=== PATIENT | male | born 1965 | race Caucasian/White ===

== ENCOUNTER 2019-06-13 09:24 | Emergency (ER) | payer BC, OTHER ==
[~2019-06-13] VITALS: Ht 170.2 cm; Wt 83.6 kg
[~2019-06-13 09:24] MED LIST: ACET500T PO; CLOP75TA2 PO; GABA300C2 PO; HYDR-3716 PO; LIDO1DIS2 EXT; PRAV40TA PO; ROBA750T4 PO; SOMA350T PO; ULTR50TA PO; VICO5TAB PO; VITAD1000T PO; plavix PO; vicoden PO
--- NOTE | 2019-06-13 10:10 | REP ---
Two-view chest: 06/13/2019. Indication: Dyspnea. Comparison: 08/08/2013. Findings: The lungs are clear. There is no pleural effusion or pneumothorax. Cardiac silhouette is within normal limits. Impression: No acute cardiopulmonary process. Electronically Signed by Reza Diaz DO 06/13/2019 10:01 A
[2019-06-13 10:15] LABS: BASO # 0.1 10^3/uL (0.0-0.2); BASO % 0.5 % (0.0-1.0); EOS # 0.3 10^3/uL (0.0-0.5); HEMATOCRIT 45.5 % (42.0-52.0); HEMOGLOBIN 15.5 g/dl (13.5-17.5); LYMPH # 2.1 10^3/uL (1.5-5.0); LYMPH % 22.1 % (24.0-44.0); MEAN CORPUSCULAR HEMOGLOBIN 33.3 pg (27.0-33.0); MEAN CORPUSCULAR HGB CONC 34.1 g/dl (32.0-36.5); MEAN CORPUSCULAR VOLUME 97.6 fl (80.0-96.0); MONO # 0.7 10^3/uL (0.0-0.8); MONO % 7.8 % (0.0-5.0); NEUTROPHILS # 6.2 10^3/uL (1.5-8.5); PLATELET COUNT, AUTOMATED 223 10^3/uL (150-450); RED BLOOD COUNT 4.66 10^6/uL (4.30-6.10); WHITE BLOOD COUNT 9.4 10^3/uL (4.0-10.0)
[2019-06-13] MEDS ORDERED: IPRATROPIUM 0.5MG/ALBUTEROL 2.5MG INH SOL UD 3ML (DUONEB)(J7620) NEB ONE (10:30)
[2019-06-13 10:47] LABS: ALBUMIN 3.9 GM/DL (3.2-5.2); ALT/SGPT 39 U/L (12-78); BILIRUBIN,DIRECT 0.1 MG/DL (0.0-0.2); BILIRUBIN,TOTAL 0.4 MG/DL (0.2-1.0); BLOOD UREA NITROGEN 11 MG/DL (7-18); CALCIUM LEVEL 9.2 MG/DL (8.5-10.1); CARBON DIOXIDE LEVEL 28 MEQ/L (21-32); CHLORIDE LEVEL 102 MEQ/L (98-107); CK-MB VALUE MASS 1.3 NG/ML (<3.6); CPK CREATINE PHOSPHOKINASE 108 U/L (39-308); CREATININE FOR GFR 0.85 MG/DL (0.70-1.30); GLOMERULAR FILTRATION RATE > 60.0 (>56); GLUCOSE, FASTING 109 MG/DL (70-100); NT-PRO BNP 64 PG/ML (<125); POTASSIUM SERUM 4.2 MEQ/L (3.5-5.1); SODIUM LEVEL 135 MEQ/L (136-145); TOTAL PROTEIN 7.8 GM/DL (6.4-8.2); TROPONIN I < 0.02 NG/ML (< 0.10)
[2019-06-13] MEDS ORDERED: ISOVUE-370 76% 100ML VIAL (Q9967) As Ordered ONE (10:51)
--- NOTE | 2019-06-13 11:50 | REP ---
CT pulmonary angiogram: With IV contrast. History: Shortness of breath, rule out pulmonary embolus. Comparison studies: Comparison is made with today's chest x-ray. Contrast dose: 75 ML of Isovue [address] technique: Helical scanning is acquired and overlapping 1.5 mm and contiguous 3 mm axial images are reformatted. In addition, maximum intensity projection and multiplanar re-formation images are generated in sagittal and coronal imaging projections. CT pulmonary angiographic findings: There is good opacification of the pulmonary arterial tree. There is no filling defect or vessel cutoff. There is no CT evidence of pulmonary embolism. Thoracic aorta enhances homogeneously and is normal in course and caliber. No aneurysm or dissection is seen. There is no evidence of pleural or pericardial effusion. No hilar or mediastinal lymphadenopathy or mass lesion is observed. There is however a pleural-based somewhat spiculated soft tissue lesion in the left lung apex posteriorly and superiorly measuring 1.7 cm in greatest diameter by 0.8 by 1.7 cm. This has a somewhat suspicious morphology. There are also small biapical bullae. No other pulmonary parenchymal nodule is seen. No bony destructive lesion is seen. No adrenal abnormalities observed. There is an accessory splenule in the left upper quadrant. The visualized upper abdominal structures are otherwise unremarkable. Impression: No CT evidence of pulmonary embolus or acute aortic abnormality. There is a somewhat suspicious spiculated pleural-based 1.7 cm nodule in the left lung apex. Consider PET/CT. Electronically Signed by Jus Jacques MD 06/13/2019 06:45 P
[2019-06-13] MEDS ORDERED: PRED20TA PO (12:20)
[2019-06-13] MEDS ORDERED: PROAAER10 INH (12:20)
[2019-06-13 12:53] VITALS: BP 175/92
--- NOTE | 2019-06-13 21:27 | ECGEPIP ---
[facility] - ED Test Date: 2019-06-13 Pat Name: ANDRES MICHELLE Department: Room: - Gender: Male Outpatient Coordinator: : 1965 Requested By: OTILIA HOLLOWAY Order Number: [id number] Reading MD: Cali Serrano Measurements Intervals [place] Rate: 59 P: 14 [place]: 168 QRS: -5 QRSD: 81 T: 20 QT: 419 QTc: 417 Interpretive Statements SINUS BRADYCARDIA NONSPECIFIC T WAVE ABNORMALITIES NO PRIORS FOR COMPARISON Electronically Signed on 06-13-2019 21:27:18 EDT by Cali Serrano
--- NOTE | 2019-06-14 16:03 | ED PDOC ---
Post-Departure Follow-Up dr farrar faxed formal report of cta chest forfu Shirley Wright MD Jun 14, 2019 16:03
== END 2019-06-13 12:52 | disposition home or self-care (01) ==
LOC: M ED 09:24
DX: J44.1 Chronic obstructive pulmonary disease with (acute) exacerbation (principal); R91.1 Solitary pulmonary nodule; R00.1 Bradycardia, unspecified; F17.200 Nicotine dependence, unspecified, uncomplicated; Z88.0 Allergy status to penicillin; Z88.1 Allergy status to other antibiotic agents; Z88.5 Allergy status to narcotic agent; Z91.040 Latex allergy status
CPT/HCPCS: 71046; 71275; 80048; 80076; 82550; 82553; 83880; 84443; 84484; 85025; 85379; 93005; 94640; 99284; Q9967

== ENCOUNTER → 2019-07-12 | Outpatient (CLI) | payer BC ==
[~2019-07-12] MED LIST changes: +PRED20TA PO; +PROAAER10 INH
--- NOTE | 2019-07-12 17:55 | REP ---
PET/CT: History: Diagnosing left upper lobe nodule. Comparisons: Comparison CT study of the chest is from June 13, 2019. This showed a 1.7 cm nodule in the left lung apex. TECHNIQUE: 47 minutes following the intravenous injection of a 8.84 mCi dose of F-18 FDG, three-dimensional PET scintigraphy is acquired from the skull base to the proximal thighs. Triplanar noncontrast CT scanning is acquired through the same anatomic range for attenuation correction, and image registration with scan parameters optimized to minimize radiation exposure to the patient. PET scintigraphy and CT datasets were fused and displayed on a workstation with multiplanar and projection display capability. PET/CT Findings: The known spiculated left apical 17 mm nodule is not hypermetabolic. There is some uptake however maximum standard uptake value is 2.13, which is not in the hypermetabolic range. There is no other abnormal hypermetabolic uptake in the thorax. Head and neck soft tissues are unremarkable. In the abdomen and pelvis, there is normal hepatic, splenic, gastrointestinal, and genitourinary FDG accumulation. No abnormal abdominal or pelvic uptake is seen. Impression: Low level uptake in the left apical lung nodule, not within the hypermetabolic range. Follow-up is recommended. This does not completely exclude malignancy. Electronically Signed by Jus Jacques MD 07/13/2019 07:58 A
== END ==
LOC: M PLARAD 11:33
PROVIDERS: ATTEND Internal Medicine Pulmonary Disease
DX: R91.8 Other nonspecific abnormal finding of lung field (principal)
CPT/HCPCS: 78815; A9552

== ENCOUNTER → 2019-08-15 | Outpatient (CLI) | payer BC ==
--- NOTE | 2019-08-15 11:15 | REP ---
Bilateral lower extremity arterial Doppler ultrasound: History: Bilateral leg pain. Tobacco use. Findings: Ankle brachial indices are normal bilaterally, measured at 1.1 on the right and 1.0 on the left. Relatively normal triphasic waveforms are noted throughout the lower extremity arteries with the exception of the distal ORDER MAKE UP CLERK and distal AT A on the left which were monophasic. The distal ORDER MAKE UP CLERK on the right and the proximal AT A tracing on the right are monophasic as well. Mild plaquing is seen. No stenosis seen. Velocity chart right lower extremity arteries: CF A 129 cm/S Profunda 102 Proximal SFA 127 Mid SFA 104 Distal SFA 113 Popliteal 68 Proximal AT A 36 Tibioperoneal trunk 52 Proximal ORDER MAKE UP CLERK 43 Distal ORDER MAKE UP CLERK 61 Distal AT A 58 Velocity chart left lower extremity arteries: CF A 117 cm/S Profunda 99 Proximal SFA 97 Mid SFA 90 Distal SFA 96 Popliteal 65 Proximal AT A 34 Tibioperoneal trunk 50 Proximal ORDER MAKE UP CLERK 41 Distal ORDER MAKE UP CLERK 69 Distal AT A Electronically Signed by Jus Jacques MD 08/15/2019 11:07 A
== END ==
LOC: M RAD 06:54
PROVIDERS: ATTEND Physician Assistant
DX: I73.9 Peripheral vascular disease, unspecified (principal); F17.210 Nicotine dependence, cigarettes, uncomplicated

== ENCOUNTER → 2019-11-06 | Outpatient (CLI) | payer BC ==
--- NOTE | 2019-11-07 03:16 | REP ---
Clinical: COPD. Technique: Axial noncontrast images from the thoracic inlet to the upper abdomen with coronal and sagittal re-formations. Comparison: 06/13/2019. Findings: Mild stable COPD and bronchiectasis remains essentially unchanged including few scattered subpleural blebs primarily noted in the upper lung zones. By apical scarring is again noted along with stable spiculated subpleural nodule at the medial left lung apex which remains relatively unchanged. No further suspicious consolidation, nodule or mass lesion identified. No pleural effusion. No pneumothorax. No obvious adenopathy. The mediastinum demonstrates relatively normal thoracic aorta, pulmonary vasculature and heart/pericardium. Musculoskeletal structures are intact. Impression: 1. Relatively stable spiculated density along the medial left lung apex may represent chronic scarring. Active disease cannot definitively be excluded and 3-6 month follow-up examination may be warranted. 2. Mild stable chronic changes. Electronically Signed by Luis Berry MD 11/07/2019 03:07 A
== END ==
LOC: M RAD 15:19
PROVIDERS: ATTEND Internal Medicine Pulmonary Disease
DX: J44.9 Chronic obstructive pulmonary disease, unspecified (principal)

== ENCOUNTER → 2020-07-15 | Outpatient (CLI) | payer BC ==
[~2020-07-15] MED LIST changes: +ANOR1AER INH
--- NOTE | 2020-07-15 09:28 | REP ---
INDICATION: SOLITARY PULMONARY NODULE COMPARISON: 11/06/2019, 06/13/2019 TECHNIQUE: Axial noncontrast images from the thoracic inlet to the upper abdomen with coronal and sagittal reformations. This CT examination was performed using the following dose reduction techniques: Automated exposure control, adjustment of mA and/or kv according to the patient's size, and use of iterative reconstruction technique. FINDINGS: The left apical nodule with spiculated margins has increased in size to approximately 20 mm (image 11) Remainder of lung barney demonstrate mild chronic stable emphysematous changes without further consolidation, suspicious nodule or mass. Tracheobronchial tree is patent. No effusion. No pneumothorax. No obvious significant adenopathy. Mild atherosclerotic changes to the thoracic aorta and coronary arteries suggested without aortic aneurysm or cardiomegaly. No pericardial effusion. Limited upper abdomen demonstrates normal bilateral adrenal glands. Surrounding musculoskeletal structures are intact and without acute osseous abnormality. IMPRESSION: 1. Spiculated lesion in the left apex increased in size to 20 mm and suspicious for neoplasm. No obvious associated adenopathy or effusion. Biopsy may be warranted. <Electronically signed by Luis Brery > 07/15/20 0929
== END ==
LOC: M RAD 08:19
PROVIDERS: ATTEND Internal Medicine Pulmonary Disease
DX: R91.1 Solitary pulmonary nodule (principal)

== ENCOUNTER → 2020-07-30 | Outpatient (CLI) | payer BC ==
[2020-07-30 14:13] LABS: BASO # 0.1 10^3/uL (0.0-0.2); BASO % 0.8 % (0.0-1.0); EOS # 0.3 10^3/uL (0.0-0.5); EOS % 4.3 % (0.0-3.0); HEMATOCRIT 48.9 % (42.0-52.0); HEMOGLOBIN 16.3 g/dl (13.5-17.5); LYMPH # 1.9 10^3/uL (1.5-5.0); LYMPH % 29.8 % (24.0-44.0); MEAN CORPUSCULAR HEMOGLOBIN 32.7 pg (27.0-33.0); MEAN CORPUSCULAR HGB CONC 33.3 g/dl (32.0-36.5); MEAN CORPUSCULAR VOLUME 98.2 fl (80.0-96.0); MONO # 0.5 10^3/uL (0.0-0.8); MONO % 7.7 % (0.0-5.0); NEUTROPHILS # 3.7 10^3/uL (1.5-8.5); NEUTROPHILS % 57.1 % (36.0-66.0); PLATELET COUNT, AUTOMATED 212 10^3/uL (150-450); RED BLOOD COUNT 4.98 10^6/uL (4.30-6.10); WHITE BLOOD COUNT 6.5 10^3/uL (4.0-10.0)
[2020-07-30 14:24] LABS: ALT/SGPT 24 U/L (12-78); BILIRUBIN,TOTAL 0.7 MG/DL (0.2-1.0); BLOOD UREA NITROGEN 8 MG/DL (7-18); CALCIUM LEVEL 9.3 MG/DL (8.5-10.1); CARBON DIOXIDE LEVEL 28 MEQ/L (21-32); CHLORIDE LEVEL 103 MEQ/L (98-107); CHOLESTEROL LEVEL 270 MG/DL (<200); CHOLESTEROL RISK RATIO 6.279 (<5); CREATININE FOR GFR 0.99 MG/DL (0.70-1.30); GLOMERULAR FILTRATION RATE > 60.0 (>56); GLUCOSE, FASTING 91 MG/DL (70-100); HDL CHOLESTEROL 43 MG/DL (>40); LDL CHOLESTEROL 187 MG/DL (<100); NON-HDL-C 227 MG/DL; POTASSIUM SERUM 4.4 MEQ/L (3.5-5.1); SODIUM LEVEL 135 MEQ/L (136-145); TOTAL PROTEIN 8.1 GM/DL (6.4-8.2); TRIGLYCERIDES LEVEL 198 MG/DL (<150)
[2020-07-30 14:34] LABS: HEMOGLOBIN A1c 5.3 %
== END ==
LOC: M PLALAB 10:59
PROVIDERS: ATTEND Internal Medicine Pulmonary Disease
DX: R91.1 Solitary pulmonary nodule (principal)

== ENCOUNTER → 2020-08-14 | Outpatient (CLI) | payer BC ==
[~2020-08-14] MED LIST changes: +ALBU8.5H INH
== END ==
LOC: M LABSMTC 09:33
PROVIDERS: ATTEND Anesthesiology
DX: Z01.812 Encounter for preprocedural laboratory examination (principal); Z20.828 Contact with and (suspected) exposure to other viral communicable diseases

== ENCOUNTER 2020-08-19 07:56 | Day surgery (SDC) | payer BC ==
[~2020-08-19] VITALS: Ht 170.2 cm; Wt 81.6 kg
[~2020-08-19 07:56] MED LIST changes: +ALBUTEROL SULFATE 2.5 MG/0.5 ML INH NEB SOLN INH ONE; +LIDOCAINE 1% MDV 20ML VIAL SQ PRN; +LIDOCAINE 4% INJ 5ML AMP INH ONE; +LR 1,000 ML IV ONE
--- NOTE | 2020-08-19 08:31 | ECGEPIP ---
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
[2020-08-19] MEDS ORDERED: ROCURONIUM BROMIDE 50 MG/5 ML VIAL As Ordered ONE (08:44)
[2020-08-19] MEDS ORDERED: dexameTHASONE 4 MG/ML 1ML VIAL (J1100 PER 1MG) As Ordered ONE (08:44)
[2020-08-19] MEDS ORDERED: fentaNYL 100 MCG/2 ML INJECTION (J3010) As Ordered ONE ×2 (08:44→09:52)
[2020-08-19] MEDS ORDERED: ONDANSETRON 4MG/2ML VIAL As Ordered ONE (08:44)
[2020-08-19] MEDS ORDERED: LIDOCAINE 2% 100MG/5ML SDV (FOR ANES.) As Ordered ONE (08:44)
[2020-08-19] MEDS ORDERED: propofoL 200 MG/20 ML VIAL As Ordered ONE (08:44)
[2020-08-19] MEDS ORDERED: MIDAZOLAM INJ 2MG/2ML VIAL (J2250 PER 1MG) As Ordered ONE (08:44)
[2020-08-19] MEDS ORDERED: LIDOCAINE 4% INJ 5ML AMP INH ONE (09:00)
[2020-08-19] MEDS ORDERED: CETACAINE SPRAY 5GM As Ordered ONE (09:07)
[2020-08-19] MEDS ORDERED: LIDOCAINE 1% SDV 30ML VIAL As Ordered ONE (09:07)
[2020-08-19] MEDS ORDERED: EPINEPHrine 1MG/10ML SYRINGE 1.5IN As Ordered ONE (09:07)
[2020-08-19] MEDS ORDERED: THROMBIN SOLN 5,000 UNITS VIAL As Ordered ONE (09:07)
[2020-08-19] MEDS ORDERED: SUGAMMADEX SODIUM 500 MG/5 ML VIAL (BRIDION) As Ordered ONE (09:59)
--- NOTE | 2020-08-19 10:46 | ROOR ---
Patient Name: Evens Pelletier Procedure Date: 08/19/2020 9:06 AM Date of : 1965 Admit Type: Outpatient Age: 55 Room: Main OR Note Status: Finalized Attending MD: Lucía Connors MD Procedure: Bronchoscopy Indications: Left upper lobe nodule Providers: Lucía Connors MD (Doctor), Onur Adames DO, [facility] (1st Assisting Doctor) Referring MD: 1. No Referring Physician 1. No Referring Physician, Admin. (Referring MD) Requesting Physician: Medicines: Lidocaine 4% via nebulizer with Albuterol 2.5 mg, General Anesthesia, Cetacaine topical Complications: No immediate complications. Estimated blood loss: Minimal Procedure: Pre-Anesthesia Assessment: - Prior to the procedure, a History and Physical was performed, and patient medications and allergies were reviewed. The patient's tolerance of previous anesthesia was also reviewed. The risks and benefits of the procedure and the sedation options and risks were discussed with the patient. All questions were answered, and informed consent was obtained. Prior Anticoagulants: The patient has taken no previous anticoagulant or antiplatelet agents. ASA Grade Assessment: II - A patient with mild systemic disease. After reviewing the risks and benefits, the patient was deemed in satisfactory condition to undergo the procedure. - Patient identification and proposed procedure were verified prior to the procedure by the physician, the nurse, the anesthesiologist, the senior mechanical project engineer and the clean room technician. The procedure was verified in the procedure room. The Bronchoscope was introduced through the mouth, via the endotracheal tube (the patient was intubated for the procedure) and advanced to the tracheobronchial tree of both lungs. The procedure was accomplished without difficulty. The patient tolerated the procedure well. Findings: The endotracheal tube is in good position. The visualized portion of the trachea is of normal caliber. The martin is sharp. The tracheobronchial tree was examined to at least the first subsegmental level. Bronchial mucosa are normal; there are no endobronchial lesions, some mucosal pitting and webbing and scant mucoid secretions noted throughout. In the left there was anatomic variant. The lingular segmental branch came off the left lower lobe secondary bronchus. [employer]romagnetic navigation bronchoscopy was performed. The CT scan was used for planning purposes. A virtual bronchoscopic image was generated using the planning software. The target in the apical-posterior segment of the left upper lobe was marked. A nodule 2 cm in size was found and a pathway was created. After a complete airway exam, the navigation phase was then begun to locate the target lesion(s). Positioning centrally and partially off-center (in relation to the lesion) was confirmed using the Olympus radial probe US catheter. Fluoroscopy guided transbronchial brushings of a nodule were obtained in the apical-posterior segment of the left upper lobe with a cytology brush and sent for routine cytology. Transbronchial brushing technique was selected because the sampling site was not accessible using standard endoscopic (bronchoscopic) techniques. Transbronchial biopsies of a nodule were performed in the apical-posterior segment of the left upper lobe using forceps and sent for histopathology examination. The procedure was guided by fluoroscopy. Transbronchial biopsy technique was selected because the sampling site was not visible endoscopically. Bronchoalveolar lavage was performed in the JOSE EDUARDO apical posterior segments (B1 & B2) of the lung and sent for routine cytology and bacterial, AFB and fungal analysis. The return was blood-tinged. There were no mucoid plugs in the return fluid. Fiducial marker placement was performed. Once the target lesion was identified, two markers were deployed around the lesion 4 mm apart in the apical-posterior segment of the left upper lobe. Impression: - Left upper lobe nodule - The airway examination was normal. - Electromagnetic navigation bronchoscopy was performed. - Transbronchial brushings were obtained. - Transbronchial lung biopsies were performed. - Bronchoalveolar lavage was performed. - Fiducial markers were deployed. Recommendation: - Await test results. Procedure Code(s): --- Professional --- 88669, Bronchoscopy, rigid or flexible, including fluoroscopic guidance, when performed; with placement of fiducial markers, single or multiple 40824, Bronchoscopy, rigid or flexible, including fluoroscopic guidance, when performed; with transbronchial lung biopsy(s), single lobe 41832, Bronchoscopy, rigid or flexible, including fluoroscopic guidance, when performed; with bronchial alveolar lavage 27625, Bronchoscopy, rigid or flexible, including fluoroscopic guidance, when performed; with brushing or protected brushings 01854, Bronchoscopy, rigid or flexible, including fluoroscopic guidance, when performed; with computer-assisted, image-guided navigation (List separately in addition to code for primary procedure[s]) 36169, Bronchoscopy, rigid or flexible, including fluoroscopic guidance, when performed; with transendoscopic endobronchial ultrasound (EBUS) during bronchoscopic diagnostic or therapeutic intervention(s) for peripheral lesion(s) (List separately in addition to code for primary procedure[s]) CPT copyright 2019 [employer]. All rights reserved. The codes documented in this report are preliminary and upon environmental services aide review may be revised to meet current compliance requirements. Attending Participation: I personally performed the entire procedure. Lucía Connors MD 08/19/2020 10:46:30 AM Onur Adames DO, [facility] Number of Addenda: 0 Note Initiated On: 08/19/2020 9:06 AM
[2020-08-19] MEDS ORDERED: MEPERIDINE INJ 25 MG/ML VIAL (J2175) IV PRN (11:00)
[2020-08-19] MEDS ORDERED: ONDANSETRON 4MG/2ML VIAL IV PRN (11:00)
[2020-08-19] MEDS ORDERED: LR 1,000 ML IV SCH (11:00)
[2020-08-19] MEDS ORDERED: METOCLOPRAMIDE INJ 10MG/2ML VIAL (J2765 PER 1) IV PRN (11:00)
[2020-08-19] MEDS ORDERED: PERCOCET 5MG/325MG TAB PO PRN (11:00)
[2020-08-19] MEDS ORDERED: fentaNYL 100 MCG/2 ML INJECTION (J3010) IV PRN (11:00)
--- NOTE | 2020-08-19 11:03 | REP ---
INDICATION: R/O PNEUMO. COMPARISON: 06/13/2019. TECHNIQUE: SINGLE PORTABLE AP VIEW OF THE CHEST WAS PERFORMED. FINDINGS: Two metallic clips overlie the left apex at the site of a recently identified spiculated nodule. No pneumothorax is seen. Both lungs are otherwise clear with no infiltrate or evidence of pleural effusion. The heart mediastinum are unremarkable. IMPRESSION: NO ACUTE PULMONARY DISEASE.No pneumothorax. <Electronically signed by Long Cortes > 08/19/20 105
[2020-08-19 11:39] VITALS: BP 130/68
== END 2020-08-19 12:20 | disposition home or self-care (01) ==
LOC: M SDC 07:56
PROVIDERS: ATTEND Internal Medicine Pulmonary Disease
DX: J13 Pneumonia due to Streptococcus pneumoniae (principal); J44.9 Chronic obstructive pulmonary disease, unspecified; F17.218 Nicotine dependence, cigarettes, with other nicotine-induced disorders; E78.49 Other hyperlipidemia; I73.9 Peripheral vascular disease, unspecified; K21.9 Gastro-esophageal reflux disease without esophagitis; F41.9 Anxiety disorder, unspecified; Z91.040 Latex allergy status; Z88.0 Allergy status to penicillin; Z88.1 Allergy status to other antibiotic agents; Z79.51 Long term (current) use of inhaled steroids
CPT/HCPCS: 31623; 31624; 31626; 31627; 31628; 31654; 71045; 76000; 87070; 87077; 87102; 87116; 87186; 87205; 87206; 88104; 88108; 88305; 88313; 93005; C1887; J1100; J2250; J2405; J3010; S2900

== ENCOUNTER → 2020-11-18 | Outpatient (CLI) | payer BC ==
[~2020-11-18] MED LIST changes: -ALBUTEROL SULFATE 2.5 MG/0.5 ML INH NEB SOLN INH ONE; -LIDOCAINE 1% MDV 20ML VIAL SQ PRN; -LIDOCAINE 4% INJ 5ML AMP INH ONE; -LR 1,000 ML IV ONE
--- NOTE | 2020-11-18 13:45 | REP ---
INDICATION: DIAGNOSING SOLITARY PULMONARY NODULE. Negative bronchoscopic biopsy 08/19/2020. COMPARISON: Comparison PET-CT study July 12, 2019.. Comparison chest CT study July 15, 2020. TECHNIQUE: Fifty-three minutes following the intravenous injection of a 14.13 mCi dose of F-18 FDG, three-dimensional PET scintigraphy is acquired from the skull base to the proximal thighs. Triplanar noncontrast CT scanning is acquired through the same anatomic range for attenuation correction, and image registration with scan parameters optimized to minimize radiation exposure to the patient. PET scintigraphy and CT datasets were fused and displayed on a workstation with multiplanar and projection display capability. FINDINGS: Head and neck soft tissues remain unremarkable. The left apical pleural based nodule has enlarged somewhat since the prior PET-CT study from July 12, 2019. It has become mildly hypermetabolic. Maximum standard uptake value in this nodule today is 4.62. Previously, maximum standard uptake value is 2.13. The nodule measures 2 cm in greatest diameter and is unchanged from the most recent CT study of July 15, 2021. Metallic fiducial markers are seen along the lateral and inferior margin of the nodule. No other abnormal hypermetabolic uptake is seen in the chest. No abnormal hypermetabolic uptake is seen in the abdomen or pelvis. PET scintigraphy is otherwise unremarkable. IMPRESSION: The spiculated nodule in the left lung apex has enlarged somewhat and become mildly hypermetabolic in the interval since the prior PET-CT study of 12 July 2019. Malignancy not excluded. <Electronically signed by Jonah Jacques > 11/18/20 [id number]
== END ==
LOC: M PLARAD 07:27
PROVIDERS: ATTEND Internal Medicine Pulmonary Disease
DX: R91.1 Solitary pulmonary nodule (principal)
CPT/HCPCS: 78815; A9552

== ENCOUNTER → 2020-12-31 | Outpatient (CLI) | payer BC ==
--- NOTE | 2020-12-31 14:04 | REP ---
INDICATION: SOLITARY PULMONARY NODULE, COPD. COMPARISON: Comparison is made with prior CT studies the most remote of which is from June 13, 2019 and the most recent 14 July 2020. Comparison is made with PET-CT findings from 18 November 2020.. TECHNIQUE: Helical scanning is acquired. 3 mm axial images are generated. Coronal and sagittal MPR and coronal MIP images are generated. FINDINGS: Digital preliminary auto body worker radiograph demonstrates 2 metallic fiducial markers in the left lung apex. Axial CT images demonstrate that these fiducial markers are along the inferior aspect of the pleural based left apical spiculated soft tissue nodule. Current dimensions of this nodular density are 2.4 x 1.9 by 2.4 cm. This is increased gradually since the June 13, 2019 study and appears larger from the most recent prior study of July 15, 2020. There are biapical bullous changes and again noted. There is a granulomatous calcification in the left upper lobe on page 50 of 118 series 201 of today's study. No other pulmonary nodule is appreciated. There is a tiny focus of subpleural fibrosis in the left lower lobe which is unchanged from the 2019 study. This is seen on page 71. No bony destructive lesion is seen. There is an accessory splenule again noted in the left upper quadrant. Normal adrenal glands are observed. No supraclavicular or axillary mass or adenopathy is observed. IMPRESSION: The previously noted left apical spiculated nodule has enlarged in the interval since the prior study of July 15, 2020. Current dimensions 2.4 x 2.4 x 1.9 cm. This corresponds to the area of hypermetabolic uptake on recent PET-CT. <Electronically signed by Jonah Jacques > 12/31/20 1400
== END ==
LOC: M RAD 07:26
PROVIDERS: ATTEND Thoracic Surgery (Cardiothoracic Vascular Surgery)
DX: R91.1 Solitary pulmonary nodule (principal); J44.9 Chronic obstructive pulmonary disease, unspecified

== ENCOUNTER → 2021-01-23 | Outpatient (CLI) | payer BC | LOC: M LABSMTC 12:16 | PROVIDERS: ATTEND Anesthesiology | DX: Z01.812 Encounter for preprocedural laboratory examination (principal); Z20.822 Contact with and (suspected) exposure to COVID-19 ==

== ENCOUNTER → 2021-01-28 | Outpatient (CLI) | payer BC ==
[~2021-01-28] MED LIST changes: +ASPI-164 PO; +ATOR1TAB19 PO; +ATOR80TA59 PO; +BUPR15TASR PO; +BUPR75TA5 PO; +MUPIROCIN 2% OINT 22 GM TUBE TOP ONE; +VANCOMYCIN HCL 1,000 MG, VIAL MATE ADAPTER 1 EACH in NS 250 ML IV ONE
[2021-01-28 14:00] LABS: HEMATOCRIT 44.2 % (42.0-52.0); MEAN CORPUSCULAR HEMOGLOBIN 32.3 pg (27.0-33.0); MEAN CORPUSCULAR HGB CONC 33.9 g/dl (32.0-36.5); MEAN CORPUSCULAR VOLUME 95.3 fl (80.0-96.0); PLATELET COUNT, AUTOMATED 207 10^3/uL (150-450); RED BLOOD COUNT 4.64 10^6/uL (4.30-6.10); WHITE BLOOD COUNT 7.1 10^3/uL (4.0-10.0)
[2021-01-28 14:15] LABS: ABG BASE EXCESS 1.3 (-2.0-2.0); ABG HCO3 23.3 MEQ/L (22.0-26.0); ABG O2 SATURATION 98.4 % (95.0-99.0); ABG PARTIAL PRESSURE CO2 30.1 mmHg (35.0-45.0); ABG PARTIAL PRESSURE O2 110.5 mmHg (75.0-100.0); ABG STANDARD HCO3 25.6 MEQ/L (22.0-26.0); ABG TOTAL CO2 24.2 MEQ/L (22.0-29.0); ABG pH (ARTERIAL) 7.507 UNITS (7.350-7.450)
[2021-01-28 14:17] LABS: INR 0.88; PROTHROMBIN TIME 12.1 SECONDS (12.5-14.3)
[2021-01-28 14:18] LABS: PARTIAL THROMBOPLASTIN TIME 29.7 SECONDS (24.2-38.5)
[2021-01-28 14:32] LABS: APPEARANCE, URINE CLEAR (CLEAR); BACTERIA, URINE AUTO NEGATIVE (NEGATIVE); BILIRUBIN, URINE AUTO NEGATIVE (NEGATIVE); BLOOD, URINE BLOOD 1+ (NEGATIVE); COLOR, URINE YELLOW (YELLOW); GLUCOSE, URINE (UA) AUTO NEGATIVE (NEGATIVE); KETONE, URINE AUTO NEGATIVE (NEGATIVE); LEUKOCYTE ESTERASE, URINE AUTO NEGATIVE (NEGATIVE); NITRITE, URINE AUTO NEGATIVE (NEGATIVE); PROTEIN, URINE AUTO NEGATIVE (NEGATIVE); RBC, URINE AUTO 2 /HPF (0-3); SQUAMOUS EPITHELIAL CELL UR AU 0 /HPF (0-6); UROBILINOGEN, URINE AUTO 0.2 mg/dL (0.0-2.0); WBC, URINE AUTO 1 /HPF (0-3)
[2021-01-28 14:38] LABS: BLOOD UREA NITROGEN 11 MG/DL (7-18); CALCIUM LEVEL 9.8 MG/DL (8.5-10.1); CARBON DIOXIDE LEVEL 27 MEQ/L (21-32); CHLORIDE LEVEL 102 MEQ/L (98-107); CREATININE FOR GFR 0.76 MG/DL (0.70-1.30); GLOMERULAR FILTRATION RATE > 60.0 (>56); GLUCOSE, FASTING 92 MG/DL (70-100); POTASSIUM SERUM 4.2 MEQ/L (3.5-5.1); SODIUM LEVEL 135 MEQ/L (136-145)
--- NOTE | 2021-01-28 14:44 | REP ---
INDICATION: LEFT UPPER LOBE ABNORMALITY COMPARISON: 08/19/2020 TECHNIQUE: PA and lateral. FINDINGS: The mediastinum and cardiac silhouette are normal. The lung barney are clear and without acute consolidation, effusion, or pneumothorax. The skeletal structures are intact and normal. Medial left apical lesion in the region of the visible clips is not identifiable by x-ray. IMPRESSION: No acute cardiopulmonary process. <Electronically signed by Luis Berry > 01/28/21 [id number]
--- NOTE | 2021-01-31 23:41 | ECGEPIP ---
[facility] Test Date: 2021-01-28 Pat Name: ANDRES MICHELLE Department: Room: - Gender: Male Collection Correspondent: carlee : 1965 Requested By: Cisco Gamez Order Number: [id number] Reading MD: Brendon Love Measurements Intervals [place] Rate: 60 P: 6 [place]: 162 QRS: -4 QRSD: 80 T: 16 QT: 400 QTc: 400 Interpretive Statements Normal sinus rhythm Compared to prior tracings (2) in the system, No remarkable changes Electronically Signed on 01-31-2021 23:41:13 EDT by Brendon Love
== END ==
LOC: M ADMPAT 12:56
PROVIDERS: ATTEND Thoracic Surgery (Cardiothoracic Vascular Surgery)
DX: Z01.818 Encounter for other preprocedural examination (principal)

== ENCOUNTER → 2021-01-29 | Outpatient (CLI) | payer BC ==
[~2021-01-29] MED LIST changes: -ASPI-164 PO; -ATOR80TA59 PO; -BUPR15TASR PO; -MUPIROCIN 2% OINT 22 GM TUBE TOP ONE; -VANCOMYCIN HCL 1,000 MG, VIAL MATE ADAPTER 1 EACH in NS 250 ML IV ONE
== END ==
LOC: M LABSMTC 09:33
PROVIDERS: ATTEND Anesthesiology
DX: Z01.812 Encounter for preprocedural laboratory examination (principal)

== ENCOUNTER 2021-01-31 06:58 | Inpatient (IN) | payer BC ==
[~2021-01-31] VITALS: Ht 172.7 cm; Wt 83.1 kg
[2021-01-31] VITALS (8 sets, daily range): BP systolic 89–118; BP diastolic 53–73
[2021-01-31] MEDS ORDERED: LR 1,000 ML IV ONE (07:05)
[2021-01-31] MEDS ORDERED: ONDANSETRON 4MG/2ML VIAL As Ordered ONE (07:16)
[2021-01-31] MEDS ORDERED: propofoL 200 MG/20 ML VIAL As Ordered ONE (07:16)
[2021-01-31] MEDS ORDERED: LIDOCAINE 2% 100MG/5ML SDV (FOR ANES.) As Ordered ONE (07:16)
[2021-01-31] MEDS ORDERED: ROCURONIUM BROMIDE 50 MG/5 ML VIAL As Ordered ONE ×4 (07:16→12:32)
[2021-01-31] MEDS ORDERED: dexameTHASONE 4 MG/ML 1ML VIAL (J1100 PER 1MG) As Ordered ONE (07:16)
[2021-01-31] MEDS ORDERED: fentaNYL 100 MCG/2 ML INJECTION (J3010) As Ordered ONE ×3 (07:16→14:32)
[2021-01-31] MEDS ORDERED: MIDAZOLAM INJ 2MG/2ML VIAL (J2250 PER 1MG) As Ordered ONE (07:16)
[2021-01-31] MEDS ORDERED: ACETAMINOPHEN 1000MG 100ML IV BTL (OFIRMEV) (J0131 PER 10MG) As Ordered ONE (07:16)
[2021-01-31] MEDS ORDERED: BUPIVACAINE HCL 0.5% 10ML VIAL As Ordered ONE (07:23)
[2021-01-31] MEDS ORDERED: CETACAINE SPRAY 5GM As Ordered ONE (07:23)
[2021-01-31] MEDS ORDERED: MUPIROCIN 2% OINT 22 GM TUBE As Ordered ONE (07:23)
[2021-01-31] MEDS ORDERED: BUPIVACAINE LIPOSOME/PF 1.3% 20ML VIAL (13.3MG/ML)(EXPAREL)(C9290 PER1MG) As Ordered ONE (07:24)
[2021-01-31] MEDS ORDERED: VANCOMYCIN 1000MG/20ML VIAL As Ordered ONE (07:29)
[2021-01-31] MEDS ORDERED: MUPIROCIN 2% OINT 22 GM TUBE TOP ONE (07:35)
[2021-01-31] MEDS ORDERED: VANCOMYCIN HCL 1,000 MG, VIAL MATE ADAPTER 1 EACH in NS 250 ML IV ONE (07:35)
[2021-01-31] MEDS ORDERED: LIDOCAINE 1% MDV 20ML VIAL XX ONE (08:00)
[2021-01-31] MEDS: MIDAZOLAM INJ 2MG/2ML VIAL (J2250 PER 1MG) IV PRN ×2 (08:11→08:15)
[2021-01-31] MEDS: fentaNYL 100 MCG/2 ML INJECTION (J3010) IV PRN ×6 (08:11→14:57)
[2021-01-31] MEDS ORDERED: BUPIVACAINE HCL 0.5% 30 ML VIAL As Ordered ONE (09:05)
[2021-01-31] MEDS ORDERED: EPIDURAL/PCA KEYS XX PRN (10:00)
[2021-01-31] MEDS ORDERED: FENTANYL/BUPIVACAINE/NACL BAG 250 ML EPIDURAL SCH (10:00)
[2021-01-31] MEDS ORDERED: ONDANSETRON 4MG/2ML VIAL IV PRN ×3 (10:00→14:40)
[2021-01-31] MEDS ORDERED: WALLBOXKEY XX PRN (10:00)
[2021-01-31] MEDS ORDERED: METOCLOPRAMIDE INJ 10MG/2ML VIAL (J2765 PER 1) IV PRN ×2 (10:00→14:40)
[2021-01-31] MEDS ORDERED: NALOXONE INJ 0.4MG/1ML VIAL (J2310 PER 1MG) IV PRN (10:00)
[2021-01-31] MEDS ORDERED: SUGAMMADEX SODIUM 500 MG/5 ML VIAL (BRIDION) As Ordered ONE (13:20)
[2021-01-31] MEDS ORDERED: PERCOCET 5MG/325MG TAB PO PRN ×3 (14:00→14:40)
[2021-01-31] MEDS ORDERED: LEVALBUTEROL 1.25 MG/0.5 ML CONCENTRATE NEB NEB PRN (14:00)
[2021-01-31] MEDS ORDERED: BISACODYL 10 MG SUPP PR PRN (14:00)
[2021-01-31 14:31] LABS: ABG BASE EXCESS -0.9 (-2.0-2.0); ABG O2 SATURATION 99.1 % (95.0-99.0); ABG PARTIAL PRESSURE CO2 40.5 mmHg (35.0-45.0); ABG PARTIAL PRESSURE O2 169.1 mmHg (75.0-100.0); ABG STANDARD HCO3 23.8 MEQ/L (22.0-26.0); ABG TOTAL CO2 25.2 MEQ/L (22.0-29.0)
[2021-01-31] MEDS ORDERED: KETOROLAC 30 MG/ML 1ML VIAL As Ordered ONE (14:38)
--- NOTE | 2021-01-31 14:38 | REP ---
INDICATION: s/p lobectomy JOSE EDUARDO COMPARISON: 01/28/2021 TECHNIQUE: Portable AP view of the chest FINDINGS: Two left-sided chest tubes extend to the apex with small left pneumothorax. The mediastinum and cardiac silhouette are stable. The right hemithorax is clear. IMPRESSION: Postsurgical changes to the left hemithorax with small left pneumothorax. <Electronically signed by Luis Berry > 01/31/21 [id number]
[2021-01-31] MEDS ORDERED: KETOROLAC 30 MG/ML 1ML VIAL IV PRN (14:40)
[2021-01-31] MEDS ORDERED: LR 1,000 ML IV SCH (14:40)
[2021-01-31 14:41] LABS: BASO % 0.2 % (0.0-1.0); EOS % 0.2 % (0.0-3.0); HEMATOCRIT 40.5 % (42.0-52.0); HEMOGLOBIN 13.8 g/dl (13.5-17.5); LYMPH # 0.5 10^3/uL (1.5-5.0); LYMPH % 4.5 % (24.0-44.0); MEAN CORPUSCULAR HEMOGLOBIN 33.3 pg (27.0-33.0); MEAN CORPUSCULAR HGB CONC 34.1 g/dl (32.0-36.5); MEAN CORPUSCULAR VOLUME 97.6 fl (80.0-96.0); MONO # 0.4 10^3/uL (0.0-0.8); MONO % 3.4 % (2.0-8.0); NEUTROPHILS # 10.3 10^3/uL (1.5-8.5); NEUTROPHILS % 91.2 % (36.0-66.0); PLATELET COUNT, AUTOMATED 183 10^3/uL (150-450); RED BLOOD COUNT 4.15 10^6/uL (4.30-6.10); WHITE BLOOD COUNT 11.3 10^3/uL (4.0-10.0)
[2021-01-31] MEDS ORDERED: ATOR80TA59 PO (14:45)
[2021-01-31] MEDS ORDERED: BUPR15TASR PO (14:45)
[2021-01-31] MEDS: KETOROLAC 30 MG/ML 1ML VIAL IV SCH ×2 (14:47→20:49)
[2021-01-31] MEDS ORDERED: ASPI-164 PO (14:57)
[2021-01-31 15:08] LABS: BLOOD UREA NITROGEN 11 MG/DL (7-18); CALCIUM LEVEL 8.9 MG/DL (8.5-10.1); CARBON DIOXIDE LEVEL 24 MEQ/L (21-32); CHLORIDE LEVEL 103 MEQ/L (98-107); CREATININE FOR GFR 0.96 MG/DL (0.70-1.30); GLOMERULAR FILTRATION RATE > 60.0 (>56); GLUCOSE, FASTING 145 MG/DL (70-100); POTASSIUM SERUM 4.8 MEQ/L (3.5-5.1); SODIUM LEVEL 136 MEQ/L (136-145)
[2021-01-31] MEDS: KCL 20MEQ IN D5/NS 1000ML 1,000 ML IV SCH (15:11)
--- NOTE | 2021-01-31 16:36 | RO ---
OPERATIVE NOTE DATE OF OPERATION: 01/31/2021 PREOPERATIVE DIAGNOSIS: Left upper lobe lesion. 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 PROCEDURES: 1. Left upper lobectomy after excision of an upper lobe tumor from the chest wall and the cupula. 2. Mediastinal lymphadenectomy. 3. Five-level rib block. 4. Bronchoscopy. 5. Pericardial flap patch. SURGEON: Dr. Cisco Tenorio FINDINGS: The tumor was not only adherent but looked to be invasive into the chest wall. This was at the cupula posteriorly. I did carve out the tumor, but I did not undertake a more extensive chest wall resection, as it was near the cupula, and I was very concerned that we were going to involve the brachial plexus. Therefore, the area was marked for later radiation therapy. There was a pinpoint staple air leak in the bronchus, which was oversewn and then reinforced with a pericardial flap and Tisseel. He did have complete fissures, but there was an intense inflammatory response all along the vessels, which made dissection difficult. DESCRIPTION OF PROCEDURE: Under satisfactory general anesthesia and single-lumen tube endotracheal intubation, the bronchoscope was passed into the tracheobronchial tree. There were no endobronchial lesions seen. There were a number of thick mucous secretions, which were suction aspirated. He had normal branching tracheobronchial anatomy. Patient was then intubated with a double-lumen tube confirmed under bronchoscopy and turned into the right lateral decubitus position. Patient was then prepped and draped in the usual sterile fashion, and a thoracoscopy incision was made in the mid axillary line into the approximate subintercostal space. Scope was inserted under inflation. Lung fell away from the chest wall. Inspection of the cupula where the tumor was noted showed the tumor not only to be adherent but into the chest wall. It was clear that I was not going to be able to remove this thoracoscopically. Therefore, a posterolateral thoracotomy incision was made with division of the latissimus dorsi with a slip of the serratus anterior. The placement of the intercostal rib incision was ascertained by she of a thoracoscope. The chest was then entered. The incision had to be extended both posteriorly and anteriorly in order to gain adequate access. It was noted that his tissues were quite dense and noncompliant. The adhesive portion of the tumor was exposed, and it was then excised by use of electrocautery. Care was taken to stay away from the subclavian vessel, which was approximately 5 mm from the tumor. The tumor was deep into the chest wall, and I was very concerned that as I got higher into the chest I was going to involve the brachial plexus if I continued the resection. I am very sure that there is some residual tumor left at the cupula. The wedge was then accomplished by use of [place] and ANNALEE stapler and sent to pathology, which confirmed that this was adenocarcinoma. Preparations were then made for an upper lobectomy. The major fissure was complete, and the intralobar pulmonary artery was located. It was surrounded with rather sticky adhesive tissue. The interlobar pulmonary artery posteriorly was also dissected up toward the apex. The posterior fissure was completed by use of a ANNALEE stapler after securing a tunnel between the posterior and anterior fissures. Dissection then proceeded from inferior to superior. There were five vessels which were encountered. The major was the apical segment, which was quite large. Each vessel was divided by use of a vascular stapler. As noted above, the dissections were rather difficult, in that there was a lot of adhesive tissue. Nonetheless, the arterial dissections were accomplished. Before dividing the large apical branch, however, the pulmonary vein was divided in two parts with the same vascular stapler. This then gave me a clear view of the apical vessel, which was then again stapled. This then left the bronchus. Bronchus turned out to be very broad based. It was eventually divided by use of an [place] 4.8 stapler. The inferior pulmonary ligament was released. The phrenic nerve was assiduously identified and preserved. The remainder of the mediastinal nodes which were not dissected with the arterial dissection were then removed and sent for pathology for separate examination. These looked to be soft and anthracotic. Upon testing the bronchus there was a small pinhole leak in the bronchus in one of the mj. This was oversewn with 4-0 Prolene suture and then reinforced by creating a pericardial flap by incising the pericardium posteriorly to the phrenic nerve and anchoring that to the bronchus with 4-0 Prolene suture. The bronchus was then tested again and was found to be intact. The bronchus as well as the arterial and venous staple lines were covered with Tisseel glue. A 5-level rib block consisting of Marcaine and Exparel was then instilled. Two chest tube were placed, a #24 anterior and posterior. The ribs were then reapproximated by use of a #1 Prolene pericostal [id number] sutures, and the extrathoracic muscles were closed with running 0 Vicryl suture, the subcutaneous tissue closed with running 3-0 Vicryl suture, and the skin closed with running 3-0 Monopril subcuticular suture. Patient tolerated the procedure well and left the operating room in satisfactory condition to the recovery room.
[2021-01-31] MEDS: LEVALBUTEROL 1.25 MG/0.5 ML CONCENTRATE NEB NEB SCH (19:33)
[2021-01-31] MEDS: HEPARIN SOD (PORCINE) 5000UNITS/ML 1ML VIAL/SYRINGE SC SCH (20:49)
[2021-01-31] MEDS: buPROPion **SR TABLET** (ZYBAN) 150MG PO SCH (20:49)
[2021-01-31] MEDS: ACETAMINOPHEN TAB 650MG DOSE (2X325MG) PO PRN (20:49)
[2021-01-31] MEDS: DOCUSATE SODIUM 100MG CAPSULE PO SCH (20:49)
[2021-01-31] MEDS: diphenhydrAMINE 50MG/ML VIAL (J1200) IV PRN (23:57)
[2021-02-01] VITALS (18 sets, daily range): BP systolic 80–144; BP diastolic 48–75
[2021-02-01] MEDS: KETOROLAC 30 MG/ML 1ML VIAL IV SCH ×4 (02:03→20:28)
[2021-02-01] MEDS: LEVALBUTEROL 1.25 MG/0.5 ML CONCENTRATE NEB NEB SCH ×4 (02:04→19:56)
[2021-02-01] MEDS: KCL 20MEQ IN D5/NS 1000ML 1,000 ML IV SCH (03:29)
[2021-02-01 06:00] LABS: ABG BASE EXCESS -4.1 (-2.0-2.0); ABG HCO3 20.1 MEQ/L (22.0-26.0); ABG PARTIAL PRESSURE CO2 34.1 mmHg (35.0-45.0); ABG PARTIAL PRESSURE O2 108.7 mmHg (75.0-100.0); ABG STANDARD HCO3 21.1 MEQ/L (22.0-26.0); ABG TOTAL CO2 21.2 MEQ/L (22.0-29.0); ABG pH (ARTERIAL) 7.389 UNITS (7.350-7.450)
[2021-02-01 06:07] LABS: BASO % 0.1 % (0.0-1.0); EOS % 0.1 % (0.0-3.0); LYMPH % 9.7 % (24.0-44.0); MEAN CORPUSCULAR HEMOGLOBIN 32.9 pg (27.0-33.0); MEAN CORPUSCULAR HGB CONC 33.1 g/dl (32.0-36.5); MEAN CORPUSCULAR VOLUME 99.2 fl (80.0-96.0); MONO % 9.4 % (2.0-8.0); NEUTROPHILS # 8.5 10^3/uL (1.5-8.5); NEUTROPHILS % 80.3 % (36.0-66.0); PLATELET COUNT, AUTOMATED 161 10^3/uL (150-450); RED BLOOD COUNT 3.53 10^6/uL (4.30-6.10); WHITE BLOOD COUNT 10.6 10^3/uL (4.0-10.0)
[2021-02-01 06:09] LABS: HEMOGLOBIN 11.6 g/dl (13.5-17.5)
[2021-02-01 06:39] LABS: BLOOD UREA NITROGEN 14 MG/DL (7-18); CALCIUM LEVEL 7.3 MG/DL (8.5-10.1); CARBON DIOXIDE LEVEL 23 MEQ/L (21-32); CHLORIDE LEVEL 109 MEQ/L (98-107); CREATININE FOR GFR 0.73 MG/DL (0.70-1.30); GLOMERULAR FILTRATION RATE > 60.0 (>56); GLUCOSE, FASTING 116 MG/DL (70-100); SODIUM LEVEL 137 MEQ/L (136-145)
--- NOTE | 2021-02-01 07:58 | REP ---
INDICATION: s/p lobectomy JOSE EDUARDO COMPARISON: 01/31/2021 TECHNIQUE: PA and lateral. FINDINGS: Two left-sided chest tubes extent to the apex. Postsurgical changes involving the left hemithorax including small left pneumothorax again noted. Aerated lung barney are relatively clear. Mediastinum and cardiac silhouette stable. Skeletal structures intact. IMPRESSION: Postsurgical changes involving the left hemithorax with small left pneumothorax. No new acute process appreciated. <Electronically signed by Luis Berry > 02/01/21 0757
[2021-02-01] MEDS: MOM 30ML SUSPENSION UDC PO SCH (09:00)
[2021-02-01] MEDS: HEPARIN SOD (PORCINE) 5000UNITS/ML 1ML VIAL/SYRINGE SC SCH ×2 (09:01→20:27)
[2021-02-01] MEDS: buPROPion **SR TABLET** (ZYBAN) 150MG PO SCH ×2 (09:02→20:27)
[2021-02-01] MEDS: PANTOPRAZOLE 40MG TAB (PROTONIX) PO SCH (09:02)
[2021-02-01] MEDS: DOCUSATE SODIUM 100MG CAPSULE PO SCH ×2 (09:02→20:27)
[2021-02-01] MEDS: ATORVASTATIN 20 MG TAB PO SCH (09:02)
[2021-02-01] MEDS: FENTANYL/BUPIVACAINE BAG 250 ML EPIDURAL SCH (09:53)
[2021-02-01] MEDS ORDERED: ONDANSETRON 4MG/2ML VIAL IV PRN (10:00)
[2021-02-01] MEDS ORDERED: diphenhydrAMINE 50MG/ML VIAL (J1200) IV PRN (10:00)
[2021-02-01] MEDS ORDERED: NALOXONE INJ 0.4MG/1ML VIAL (J2310 PER 1MG) IV PRN (10:00)
[2021-02-01] MEDS ORDERED: WALLBOXKEY XX PRN (10:00)
[2021-02-01] MEDS ORDERED: EPIDURAL/PCA KEYS XX PRN (10:00)
[2021-02-01] MEDS ORDERED: METOCLOPRAMIDE INJ 10MG/2ML VIAL (J2765 PER 1) IV PRN (10:00)
[2021-02-01] MEDS: diphenhydrAMINE 50MG/ML VIAL (J1200) IV PRN ×2 (11:22→17:23)
--- NOTE | 2021-02-01 11:33 | IPN ---
PROGRESS NOTE DATE: 02/01/2021 This is now the first postoperative day for Mr. Pelletier. He has had an uneventful first night of surgery. He does have increased pain at the incision site, and anesthesia has increased his epidural. His vital signs show a maximum temperature of 98.9 with a heart rate that ranges between 76-89 in a sinus rhythm, respiratory rate of 16-18 without the use of accessory muscles, who is 96%-98% saturated now on room air and whose blood pressure is ranging between 124/69 to 97/48. His intake and output for the past 24 hours has been recorded as 2463 in and 535 out, for a positivity of 1928 mL. He has put out 120 mL from the chest tube, and there is no air leak on water seal. Weight today is 82.9 kg compared to 82.3 kg yesterday. PHYSICAL EXAMINATION: His lungs show equal breath sounds on either side. There is some coarse rhonchi on the left side. Percussions notes are full to the diaphragm. Cardiac exam is without murmurs, clicks, gallops, or rubs. I cannot feel his point of maximal impulse (PMI). S1 and S2 are normal. Abdomen is soft and nontender. Bowel sounds are positive. There is no hepatomegaly. No costovertebral angle (CVA) tenderness. He is slightly tympanitic and distended, but he is having flatus. Extremities show no pretibial edema, no calf tenderness, no differential swelling of the upper extremities. Skin is warm, dry, and perfused without cyanosis or mottling, including that of the nailbeds and knees. Neck is supple. There is no jugular venous distention. No subcutaneous emphysema. Trachea is midline. Mouth shows the mucous membranes to be pink and moist. Lips and commissures without lesions. No thrush. Eyes show her pupils to be equal and reactive. Extraocular motion intact. Sclerae anicteric. Neurologic shows II-XII intact. Normal gross motor, gross sensation intact. Gait is not tested. Psychiatric shows him to be awake, alert, and oriented times three with appropriate mood and affect and conversational. His white count today is 10.6 with a hemoglobin and hematocrit of 11.6 and 35.0, down from 13.8 and 40.5 yesterday secondary to hemodilution. Platelet count is 161, and differential shows 80% neutrophils, 9% lymphocytes, 9% monocytes. There are no immature forms or toxic granulations. His electrolytes are essentially negative with a BUN and creatinine of 14 and 0.73, a glucose of 116, and a calcium of 7.3. Blood gases today show pH of 7.38, a pCO2 of 34, with a pO2 of 108 and a base excess of -4.1. His chest x-ray today shows his lung fully expanded to the chest wall. Chest tubes are in good place. Costophrenic angles are sharp. There is no subcutaneous emphysema. The area of the cupula that I had marked with clips is clearly seen. IMPRESSION: 1. Adenocarcinoma, at least stage II into the chest wall in the cupula. Final pathology pending. 2. Chronic obstructive pulmonary disease (COPD). 3. Hypercholesterolemia. 4. History of alcohol abuse. 5. History of tobacco abuse. PLAN AND DISCUSSION: I will discontinue the arterial line today and transfer him the progressive care unit (PCU). He is already off suction, and his lung is fully expanded to the chest wall. There is no evidence of air leak, and there is no subcutaneous emphysema on the x-ray. I am still quite worried about the pinpoint staple air leak in the bronchus, but so far so good. I have explained to the patient the findings of the operation, including invasion into the chest wall, and that there may be some residual tumor left behind, as I did not want to injure his brachial plexus at the base of the neck and thoracic outlet. He understands that that implies radiation. Final pathology is still pending regarding his delbert status.
[2021-02-01] MEDS ORDERED: NS 500 ML IV ONE (21:45)
[2021-02-01] MEDS: PHENYLEPHRINE HCL INJ 50 MG in D5W 495 ML IV SCH (23:35)
[2021-02-01 23:43] LABS: HEMATOCRIT 37.6 % (42.0-52.0); HEMOGLOBIN 12.3 g/dl (13.5-17.5); MEAN CORPUSCULAR HGB CONC 32.7 g/dl (32.0-36.5); MEAN CORPUSCULAR VOLUME 100.8 fl (80.0-96.0); PLATELET COUNT, AUTOMATED 155 10^3/uL (150-450); RED BLOOD COUNT 3.73 10^6/uL (4.30-6.10); WHITE BLOOD COUNT 10.8 10^3/uL (4.0-10.0)
--- NOTE | 2021-02-01 23:55 | REPVR ---
PROCEDURE INFORMATION: Exam: XR Chest Exam date and time: 02/01/2021 11:43 PM Age: 55 years old Clinical indication: Other: Hyptension; Additional info: Hypotension TECHNIQUE: Imaging protocol: XR of the chest. Views: 1 view. COMPARISON: CR PORTABLE CHEST X-RAY 01/31/2021 2:17 PM FINDINGS: Tubes, catheters and devices: Two chest tubes are seen in the left hemithorax. Lungs: Unremarkable. No consolidation. Postsurgical changes in the left hemithorax. Small left pneumothorax decreased from prior study. Pleural spaces: Unremarkable. No pleural effusion. No pneumothorax. Heart/Mediastinum: Mediastinal surgical clips. Bones/joints: Unremarkable. IMPRESSION: No significant change from prior study. Small left pneumothorax decreased from prior study. Electronically signed by: Matt Alcocer On 02/01/2021 23:55:25 PM
[2021-02-02] VITALS (44 sets, daily range): BP systolic 88–115; BP diastolic 51–75
[2021-02-02 00:11] LABS: BLOOD UREA NITROGEN 25 MG/DL (7-18); CALCIUM LEVEL 8.1 MG/DL (8.5-10.1); CARBON DIOXIDE LEVEL 23 MEQ/L (21-32); CHLORIDE LEVEL 103 MEQ/L (98-107); CREATININE FOR GFR 1.26 MG/DL (0.70-1.30); GLOMERULAR FILTRATION RATE > 60.0 (>56); GLUCOSE, FASTING 196 MG/DL (70-100); MAGNESIUM LEVEL 2.4 MG/DL (1.8-2.4); POTASSIUM SERUM 4.1 MEQ/L (3.5-5.1); SODIUM LEVEL 132 MEQ/L (136-145)
[2021-02-02] MEDS: LEVALBUTEROL 1.25 MG/0.5 ML CONCENTRATE NEB NEB SCH ×4 (01:22→19:24)
[2021-02-02 04:31] LABS: BASO # 0.1 10^3/uL (0.0-0.2); BASO % 0.4 % (0.0-1.0); EOS # 0.1 10^3/uL (0.0-0.5); EOS % 0.6 % (0.0-3.0); HEMATOCRIT 40.6 % (42.0-52.0); HEMOGLOBIN 13.4 g/dl (13.5-17.5); LYMPH # 2.5 10^3/uL (1.5-5.0); LYMPH % 16.2 % (24.0-44.0); MEAN CORPUSCULAR HEMOGLOBIN 33.2 pg (27.0-33.0); MEAN CORPUSCULAR VOLUME 100.5 fl (80.0-96.0); MONO # 1.8 10^3/uL (0.0-0.8); MONO % 11.7 % (2.0-8.0); NEUTROPHILS # 10.8 10^3/uL (1.5-8.5); NEUTROPHILS % 70.7 % (36.0-66.0); PLATELET COUNT, AUTOMATED 187 10^3/uL (150-450); RED BLOOD COUNT 4.04 10^6/uL (4.30-6.10)
[2021-02-02 04:38] LABS: WHITE BLOOD COUNT 15.2 10^3/uL (4.0-10.0)
[2021-02-02 04:58] LABS: BLOOD UREA NITROGEN 23 MG/DL (7-18); CALCIUM LEVEL 8.4 MG/DL (8.5-10.1); CARBON DIOXIDE LEVEL 26 MEQ/L (21-32); CHLORIDE LEVEL 102 MEQ/L (98-107); CREATININE FOR GFR 1.25 MG/DL (0.70-1.30); GLOMERULAR FILTRATION RATE > 60.0 (>56); GLUCOSE, FASTING 104 MG/DL (70-100); POTASSIUM SERUM 4.3 MEQ/L (3.5-5.1); SODIUM LEVEL 133 MEQ/L (136-145)
[2021-02-02] MEDS: METOCLOPRAMIDE INJ 10MG/2ML VIAL (J2765 PER 1) IV SCH ×4 (06:22→18:12)
[2021-02-02] MEDS ORDERED: DIGOXIN INJ 0.5 MG/2 ML AMP (J1160) IV ONE (08:30)
--- NOTE | 2021-02-02 08:41 | REP ---
INDICATION: s/p lobectomy JOSE EDUARDO COMPARISON: 02/01/2021 TECHNIQUE: PA and lateral. FINDINGS: Left-sided chest tubes and postsurgical changes are similar to prior examination although the left apical pneumothorax appears to be near completely resolved. Blunting to the right costophrenic angle is now identified and may represent new small right effusion. Mediastinum and cardiac silhouette stable. Skeletal structures stable. IMPRESSION: 1. Left postsurgical changes again noted. Left pneumothorax near completely resolved. 2. Small right pleural effusion suspected. <Electronically signed by Luis Berry > 02/02/21 0874
[2021-02-02] MEDS: DOCUSATE SODIUM 100MG CAPSULE PO SCH ×2 (09:08→20:28)
[2021-02-02] MEDS: buPROPion **SR TABLET** (ZYBAN) 150MG PO SCH ×2 (09:08→20:29)
[2021-02-02] MEDS: HEPARIN SOD (PORCINE) 5000UNITS/ML 1ML VIAL/SYRINGE SC SCH ×2 (09:09→20:29)
[2021-02-02] MEDS: PANTOPRAZOLE 40MG TAB (PROTONIX) PO SCH (09:09)
[2021-02-02] MEDS: MOM 30ML SUSPENSION UDC PO SCH (09:09)
[2021-02-02] MEDS: ATORVASTATIN 20 MG TAB PO SCH (09:09)
[2021-02-02] MEDS: FENTANYL/BUPIVACAINE BAG 250 ML EPIDURAL SCH (10:02)
[2021-02-02] MEDS ORDERED: FUROSEMIDE 40MG/4ML VIAL (J1940) IV ONE (10:25)
[2021-02-02] MEDS ORDERED: VANCOMYCIN HCL 1,000 MG, VIAL MATE ADAPTER 1 EACH in NS 250 ML IV ONE (11:00)
[2021-02-02] MEDS: VANCOMYCIN HCL 1,000 MG, VIAL MATE ADAPTER 1 EACH in NS 250 ML IV SCH (13:23)
[2021-02-02] MEDS: DIGOXIN INJ 0.5 MG/2 ML AMP (J1160) IV SCH (16:45)
--- NOTE | 2021-02-02 18:27 | IPN ---
PROGRESS NOTE DATE: 02/02/2021 SUBJECTIVE: Yesterday evening, I was called for hypotension and a sudden gush of 500 mL of fluid from his chest tube. His I&Os were out of balance by approximately 2000 mL with him taking in 3400 mL yesterday. I therefore came in and transferred him to the ICU. The fluid was in deed mostly serous with a little bit of sanguineous twinge. His epidural had been doubly concentrated and his pain control was quite adequate. I therefore turned down the epidural from 10 to 8 and started him on phenylephrine. Today, he has gone into atrial fibrillation while he was down in x-ray with rapid ventricular response and I have digitalized him. OBJECTIVE: VITAL SIGNS: Show a T-max of 98.8 with a heart rate that ranges between 169 and 85 now in and out of atrial fibrillation after his first digitalization dose. Respiratory rate of 15 to 20 without the use of accessory muscles who is 92% saturated on room air and whose blood pressure is ranging between 80/61 to 144/75. RESPIRATORY: He has coarse rales, rhonchi, and some expiratory wheezing on the left side. He also has some coarse rhonchi on the right side. Percussion note is full to the diaphragm. The posterior pole of his wound is leaking serous fluid. CARDIAC: Shows an irregular rate and rhythm without murmurs, clicks, gallops, or rubs. I cannot feel his PMI. S1 and S2 are normal. ABDOMEN: Tympanitic and distended, but nontender. Bowel sounds are positive. He is passing flatus. There is no CVA tenderness. No hepatomegaly I can appreciate. EXTREMITIES: Show no pretibial edema. No calf tenderness. No differential swelling of the upper extremities. SKIN: Warm, but he is sweating on his back and his head. He puts this secondary to the heating pad, although I am quite concerned. He is profuse without cyanosis and mottling including that of the nail beds and knees. NECK: Supple. There is no jugular venous distention. No subcutaneous emphysema. Trachea is midline. MOUTH: Shows his mucous membranes to be pink and moist. Lips and commisures are without lesions and no thrush. EYES: Show his pupils equal and reactive. Extraocular muscles are intact. Sclerae nonicteric. NEUROLOGIC: Shows II through XII intact. Normal gross motor, gross sensation intact. Gait is not tested. PSYCHIATRIC: Shows him to be awake, alert, and oriented x3 with appropriate mood and affect and conversational. LABORATORY DATA: His white count today is 15.2 up from 10.8 yesterday. Hemoglobin and hematocrit are 13.4 and 40.6 up from 12.3 and 37.6 yesterday evening and 11.6 and 35.0 yesterday morning. Platelet count is 187,000. Differential shows 70% neutrophils, 16% lymphocytes, and 11% monocytes. There are no immature forms and no toxic granulations. Electrolytes show sodium of 133 with a potassium of 4.3. BUN and creatinine are 23 and 1.25 up from 14 and 0.7 from yesterday. I therefore discontinued the Toradol. Glucose is 104 with a calcium of 8.4. There are no blood gases on him today. IMAGING DATA: His chest x-ray again shows his lungs fully expand to the chest wall. There is a vague diffuse haze in the lower hemithorax. This may be atelectasis or some residual fluid. I do not see fluid on the lateral view. Chest tubes are in good place. There is no subcutaneous emphysema and I do not see any mediastinal emphysema. IMPRESSION: 1. Postoperative day #2 status post left upper lobectomy. 2. Adenocarcinoma at least stage 2 into the chest wall and the cupula. Final pathology pending. 3. Chronic obstructive pulmonary disease (COPD). 4. Hypercholesterolemia. 5. History of alcohol abuse. 6. History of tobacco abuse. 7. New onset atrial fibrillation with rapid ventricular response (RVR). PLAN AND DISCUSSION: I am concerned about his sweating and his increased white count. He does not have a fever and his differential is improving. I am also very concerned about the possibility of a mediastinitis from that small pin hole air leak. There is no air leak in the chest tube at this point in time and I do not see any subcutaneous emphysema or mediastinal emphysema. Nonetheless, I am going to start vancomycin. This will also cover his serous discharge from his wound. As noted above, I have already started him on a digitalization dose over the next 24 hours. He is trying to convert back to sinus rhythm on rounds this morning. He is nearly 4000 ahead in his I&Os and even in the face of his hypotension and on minimal phenylephrine, I am going to diurese him.
[2021-02-02] MEDS: PHENYLEPHRINE HCL INJ 50 MG in D5W 495 ML IV SCH (23:08)
[2021-02-03] VITALS (21 sets, daily range): BP systolic 91–121; BP diastolic 53–75
[2021-02-03] MEDS: METOCLOPRAMIDE INJ 10MG/2ML VIAL (J2765 PER 1) IV SCH ×4 (00:06→17:47)
[2021-02-03] MEDS: DIGOXIN INJ 0.5 MG/2 ML AMP (J1160) IV SCH (00:33)
[2021-02-03] MEDS: VANCOMYCIN HCL 1,000 MG, VIAL MATE ADAPTER 1 EACH in NS 250 ML IV SCH (01:14)
[2021-02-03] MEDS: LEVALBUTEROL 1.25 MG/0.5 ML CONCENTRATE NEB NEB SCH ×4 (02:00→20:19)
[2021-02-03 04:57] LABS: BASO # 0.1 10^3/uL (0.0-0.2); BASO % 0.5 % (0.0-1.0); EOS # 0.2 10^3/uL (0.0-0.5); EOS % 1.6 % (0.0-3.0); HEMATOCRIT 34.6 % (42.0-52.0); HEMOGLOBIN 11.5 g/dl (13.5-17.5); LYMPH # 1.9 10^3/uL (1.5-5.0); LYMPH % 17.8 % (24.0-44.0); MEAN CORPUSCULAR HGB CONC 33.2 g/dl (32.0-36.5); MEAN CORPUSCULAR VOLUME 99.1 fl (80.0-96.0); MONO # 1.1 10^3/uL (0.0-0.8); MONO % 10.2 % (2.0-8.0); NEUTROPHILS # 7.4 10^3/uL (1.5-8.5); NEUTROPHILS % 69.3 % (36.0-66.0); PLATELET COUNT, AUTOMATED 171 10^3/uL (150-450); RED BLOOD COUNT 3.49 10^6/uL (4.30-6.10); WHITE BLOOD COUNT 10.6 10^3/uL (4.0-10.0)
[2021-02-03 05:22] LABS: BLOOD UREA NITROGEN 14 MG/DL (7-18); CALCIUM LEVEL 7.8 MG/DL (8.5-10.1); CARBON DIOXIDE LEVEL 27 MEQ/L (21-32); CHLORIDE LEVEL 103 MEQ/L (98-107); CREATININE FOR GFR 0.84 MG/DL (0.70-1.30); GLOMERULAR FILTRATION RATE > 60.0 (>56); GLUCOSE, FASTING 94 MG/DL (70-100); MAGNESIUM LEVEL 2.3 MG/DL (1.8-2.4); POTASSIUM SERUM 4.5 MEQ/L (3.5-5.1); SODIUM LEVEL 135 MEQ/L (136-145)
[2021-02-03 05:51] LABS: DIGOXIN LEVEL 1.6 NG/ML (0.5-2.0)
[2021-02-03] MEDS: DIGOXIN 0.25 MG TAB PO SCH ×2 (05:53→08:10)
[2021-02-03] MEDS: KETOROLAC 30 MG/ML 1ML VIAL IV SCH ×3 (06:05→17:47)
--- NOTE | 2021-02-03 07:58 | REP ---
INDICATION: s/p lobectomy JOSE EDUARDO COMPARISON: 02/02/2021 TECHNIQUE: PA and lateral. FINDINGS: Two left-sided chest tubes and miniscule residual left apical pneumothorax with mild left basilar atelectasis again noted and similar to prior examination. Subtle blunting to the right costophrenic angle suggests trace atelectasis and pleural fluid similar to prior examination. No new acute process appreciated. Remainder of the examination is stable. IMPRESSION: No significant change from prior examination. Miniscule residual left apical pneumothorax and left basilar atelectasis along with trace right pleural reaction. <Electronically signed by Luis Berry > 02/03/21 [id number]
[2021-02-03] MEDS: HEPARIN SOD (PORCINE) 5000UNITS/ML 1ML VIAL/SYRINGE SC SCH ×2 (08:09→20:58)
[2021-02-03] MEDS: DOCUSATE SODIUM 100MG CAPSULE PO SCH ×2 (08:09→20:58)
[2021-02-03] MEDS: buPROPion **SR TABLET** (ZYBAN) 150MG PO SCH ×2 (08:09→20:58)
[2021-02-03] MEDS: ATORVASTATIN 20 MG TAB PO SCH (08:10)
[2021-02-03] MEDS: PANTOPRAZOLE 40MG TAB (PROTONIX) PO SCH (08:10)
[2021-02-03] MEDS: MOM 30ML SUSPENSION UDC PO SCH (08:27)
[2021-02-03] MEDS: FENTANYL/BUPIVACAINE BAG 250 ML EPIDURAL SCH (09:59)
--- NOTE | 2021-02-03 11:13 | IPN ---
PROGRESS NOTE DATE: 02/03/2021 SUBJECTIVE: I was called earlier this morning for this patient in [facility]. He was asymptomatic. Upon arriving to the hospital looking at the rhythm strips, currently it looks like it is atrial flutter with intermittent PVCs. OBJECTIVE: VITAL SIGNS: Show a T-max of 98.8 with a heart rate that ranges between 85 and 127 now in atrial flutter. Respiratory rate of 18 to 20 without the use of accessory muscles who is 96% saturated on room air and whose blood pressures are now running between 101/66 to 98/57. INTAKE AND OUTPUT: Over the past 24 hours has been recorded as 2657 in and 2485 out for a positivity of 172 mL. He has put out 275 mL in the chest tube and there is no air leak. Weight is pending today. RESPIRATORY: He has some coarse rhonchi on the left side with normal vesicular sounds on the right side. Percussion notes are full to the diaphragm. I do hear some end-expiratory wheezing on the right side additionally. CARDIAC: Shows an irregular rate and rhythm without murmurs, clicks, gallops, or rubs. I do not hear any crackles consistent with mediastinal emphysema. I cannot feel his PMI. S1, S2 are normal. ABDOMEN: Soft and nontender. It is still tympanitic and distended. He is passing flatus and has had a bowel movement. There is no CVA tenderness and no hepatomegaly. EXTREMITIES: Show no pretibial edema. No calf tenderness. No differential swelling of the upper extremities. SKIN: Warm, dry, and perfused without cyanosis or mottling, including that of the nail beds and knees. NECK: Supple. There is no jugular venous distention. No subcutaneous emphysema. Trachea is midline. MOUTH: Shows the mucous membranes to be pink and moist. Lips and commisures are without lesions and no thrush. EYES: Show his pupils equal and reactive. Extraocular muscles are intact. Sclerae nonicteric. NEUROLOGIC: Shows II through XII intact. Normal gross motor, gross sensation intact. Gait is not tested. PSYCHIATRIC: Shows him to be awake, alert, and oriented x3 with appropriate mood and affect and conversational. LABORATORY DATA: His white count today is down to 10.6 from 15.2 yesterday. His hemoglobin and hematocrit 11.5 and 34.6 down from 13.4 and 40.6 yesterday. Platelet count is 171,000 and stable. Differential shows 69% neutrophils, 17% lymphocytes, and 10% monocytes. There are no immature forms and no toxic granulations. His chemistries this morning show normal electrolytes with a BUN and creatinine of 14 and 0.84 improved from 23 and 1.25. Glucose is 94 with a calcium of 7.8. Magnesium is 2.3. His digoxin level is pending. IMAGING DATA: His chest x-ray shows his lungs fully expand to the chest wall. There is no subcutaneous emphysema and costophrenic angles are sharp. The diffuse haze that we saw yesterday in the left costophrenic angle is now gone. There is a lucency at the level of the sixth intercostal space medially. It was there yesterday, but it is a little bit more pronounced today and it may be exposure. I do not see it on the lateral view. I do not see mediastinal emphysema. Chest tubes are in good place. IMPRESSION: 1. Postoperative day #3 status post left upper lobectomy. 2. Adenocarcinoma at least stage II into the chest wall and the cupula with final pathology pending. 3. Chronic obstructive pulmonary disease (COPD). 4. Hypercholesterolemia. 5. History of alcohol abuse. 6. History of tobacco abuse. 7. Atrial fibrillation/flutter with rapid ventricular response. PLAN AND DISCUSSION: He is asymptomatic from his atrial flutter and his rate is fairly well-controlled now. I am checking a digoxin level. I will ask cardiology to see him later today for their recommendations. I started him on vancomycin yesterday. His wound looks dry today. I am still worried about possible mediastinitis from the pinhole air leak in the bronchus from the staple line. This is either going to not be a problem and seal over or it may become a major issue. I think in the next two to three days it will declare itself. The pinhole was covered with pericardium and over-sewn.
[2021-02-03] MEDS: VANCOMYCIN HCL 750 MG, VIAL MATE ADAPTER 1 EACH in NS 250 ML IV SCH (13:25)
[2021-02-03] MEDS: VANCOMYCIN HCL 500 MG in D5W MINI-BAG PLUS 100 ML IV SCH (14:42)
--- NOTE | 2021-02-03 20:58 | ECGEPIP ---
[facility] Test Date: 2021-02-03 Pat Name: ANDRES MICHELLE Department: Room: [place] [address] Gender: Male [employer]: guzman : 1965 Requested By: Cisco Gamez Order Number: [id number] Reading MD: Josy Downs Measurements Intervals [place] Rate: 87 P: 38 [place]: 158 QRS: 4 QRSD: 84 T: -3 QT: 338 QTc: 406 Interpretive Statements Normal sinus rhythm NON-SPECIFIC STT ABNORMALITIES, new since 01/28/21 Electronically Signed on 02-03-2021 20:58:33 EDT by Josy Downs
[2021-02-04] VITALS (10 sets, daily range): BP systolic 104–128; BP diastolic 62–73
[2021-02-04] MEDS: METOCLOPRAMIDE INJ 10MG/2ML VIAL (J2765 PER 1) IV SCH ×4 (00:36→17:59)
[2021-02-04] MEDS: KETOROLAC 30 MG/ML 1ML VIAL IV SCH ×4 (00:36→17:59)
[2021-02-04] MEDS: VANCOMYCIN HCL 750 MG, VIAL MATE ADAPTER 1 EACH in NS 250 ML IV SCH ×2 (00:37→14:05)
[2021-02-04] MEDS: VANCOMYCIN HCL 500 MG in D5W MINI-BAG PLUS 100 ML IV SCH ×2 (01:53→15:16)
[2021-02-04] MEDS: LEVALBUTEROL 1.25 MG/0.5 ML CONCENTRATE NEB NEB SCH ×4 (02:18→19:50)
[2021-02-04 05:02] LABS: BASO % 0.5 % (0.0-1.0); EOS # 0.3 10^3/uL (0.0-0.5); EOS % 4.6 % (0.0-3.0); HEMATOCRIT 32.9 % (42.0-52.0); HEMOGLOBIN 10.9 g/dl (13.5-17.5); LYMPH # 1.6 10^3/uL (1.5-5.0); MEAN CORPUSCULAR HEMOGLOBIN 32.7 pg (27.0-33.0); MEAN CORPUSCULAR HGB CONC 33.1 g/dl (32.0-36.5); MEAN CORPUSCULAR VOLUME 98.8 fl (80.0-96.0); MONO # 0.8 10^3/uL (0.0-0.8); MONO % 10.1 % (2.0-8.0); NEUTROPHILS # 4.7 10^3/uL (1.5-8.5); PLATELET COUNT, AUTOMATED 202 10^3/uL (150-450); RED BLOOD COUNT 3.33 10^6/uL (4.30-6.10); WHITE BLOOD COUNT 7.5 10^3/uL (4.0-10.0)
[2021-02-04 05:23] LABS: BLOOD UREA NITROGEN 15 MG/DL (7-18); CARBON DIOXIDE LEVEL 28 MEQ/L (21-32); CHLORIDE LEVEL 104 MEQ/L (98-107); CREATININE FOR GFR 0.84 MG/DL (0.70-1.30); GLOMERULAR FILTRATION RATE > 60.0 (>56); GLUCOSE, FASTING 85 MG/DL (70-100); POTASSIUM SERUM 4.4 MEQ/L (3.5-5.1); SODIUM LEVEL 137 MEQ/L (136-145)
--- NOTE | 2021-02-04 06:53 | CR ---
CONSULTATION DATE: 02/03/2021 REASON FOR CONSULTATION: Atrial fibrillation with rapid ventricular response. HISTORY OF PRESENT ILLNESS: Mr. Pelletier is a 55-year-old man who underwent left upper lobectomy for adenocarcinoma of the lung on January 31, 2021. The procedure itself was unremarkable but then in the recovery period he had an episode of atrial fibrillation with rapid ventricular response. He received Digoxin which led to sabianist of sinus rhythm but then he developed occasional ventricular ectopic beats and also had an episode of atrial flutter and consequently I am being asked to see him on consultation. At the time of my interview, the patient is in sinus rhythm. He reported that he did not have any awareness of the arrhythmias. He has some soreness from the surgery but the epidural catheter is still in place so the pain is not overly worrisome. He denies any dyspnea and he does not have any additional complaints. PAST MEDICAL HISTORY: 1. Left upper lobe adenocarcinoma Stage II, status post resection. 2. COPD. 3. Hypercholesterolemia. OUTPATIENT MEDICATIONS: 1. Albuterol as needed. 2. Anoro Ellipta as needed. 3. Wellbutrin 150 mg q. 12 hours. 4. Aspirin 81 mg a day. 5. Lipitor 80 mg a day. ALLERGIES: He reports an allergy or intolerance of penicillin, buprenorphine and clarithromycin and latex. FAMILY HISTORY: Mother is healthy, father has kidney cancer and one of his brothers has kidney failure. PAST SURGICAL HISTORY: Positive for back surgery, colonoscopy and nasal septal surgery. Outpatient evaluation included a nuclear stress test in our office that revealed a normal perfusion and normal left ventricular systolic function. SOCIAL HISTORY: The patient is an active smoker until very recently, typically 1 1/2 packs a day. He drinks six pack of beer daily on a regular basis. REVIEW OF SYSTEMS: Currently negative or as per HPI. PHYSICAL EXAMINATION: GENERAL: Mr. Pelletier is a 55-year-old man who appears approximately his age or slightly older. He is in no distress. Alert, oriented and appropriate in sinus rhythm. VITAL SIGNS: The last set of vital signs from this morning was blood pressure 97/61, heart rate 78. He is afebrile. Saturation is 96% on room air. Weight was recorded as 85.5 kg. NECK: There is a chest tube on the right, an epidural catheter. JVP is not elevated. LUNGS: Lungs sound clear on the right, also on the left I do not appreciate any wheezes, crackles or rhonchi. HEART: Regular rhythm without obvious gallop, rub or murmur. ABDOMEN: Soft without tenderness or rebound tenderness. EXTREMITIES: Free of edema. Peripheral pulses are palpable. NEUROLOGIC: Intact. LABORATORY DATA: This morning normal basic metabolic panel with the exception of mild hyponatremia with a sodium of 135. CBC: WBC count 10.6, hemoglobin 11.5, hematocrit 34.6 and platelet count 171,000. Digoxin level this morning was 1.6. CURRENT MEDICATIONS: 1. Digoxin 0.25 daily. 2. Toradol 30 mg q. 6. 3. Metoclopramide 10 mg q. 6. 4. Fentanyl as needed. 5. Atorvastatin 80 a day. 6. Colace. 7. Xopenex as needed. Chest x-ray reveals appropriate position of the chest tubes, minimal apical pneumothorax and no obvious infiltrate or cardiomegaly. ECG today reveals sinus rhythm with nonspecific repolarization abnormalities. ASSESSMENT AND PLAN: Mr. Pelletier is a 55-year-old man who underwent left upper lobectomy for adenocarcinoma on the lung on January 31, 2021. The procedure was uneventful and the chest appears good without any evidence for large pneumothorax or atelectasis. Unfortunately, he did develop episodes of atrial fibrillation with flutter. So far, he received Digoxin which essentially controlled the arrhythmia. If there are recurrences, I would recommend to avoid additional administration of Digoxin and I would use amiodarone probably initially IV and then very short course p.o. This is a fairly common complication of thoracic surgery and I do not believe it should in a significant way affect his postoperative course. If the episodes become longer and more sustained or more worrisome, then certainly we may need to reevaluate the whole situation. At this point, I do not believe that we need to perform an echocardiogram or any additional cardiac testing. EVY
[2021-02-04] MEDS: ATORVASTATIN 20 MG TAB PO SCH (08:09)
[2021-02-04] MEDS: DIGOXIN 0.25 MG TAB PO SCH (08:09)
[2021-02-04] MEDS: DOCUSATE SODIUM 100MG CAPSULE PO SCH ×2 (08:09→20:50)
[2021-02-04] MEDS: buPROPion **SR TABLET** (ZYBAN) 150MG PO SCH ×2 (08:09→20:50)
[2021-02-04] MEDS: PANTOPRAZOLE 40MG TAB (PROTONIX) PO SCH (08:10)
[2021-02-04] MEDS: HEPARIN SOD (PORCINE) 5000UNITS/ML 1ML VIAL/SYRINGE SC SCH ×2 (08:10→20:50)
[2021-02-04] MEDS: MOM 30ML SUSPENSION UDC PO SCH (09:00)
--- NOTE | 2021-02-04 09:35 | REP ---
INDICATION: s/p lobectomy JOSE EDUARDO COMPARISON: 02/03/2021. TECHNIQUE: PA/Lateral FINDINGS: Two left chest tubes remain in place. No pneumothorax is seen. Multiple metallic clips overlie the left hemithorax. Mild parenchymal opacity is seen in the left infrahilar region, unchanged. The right lung is unchanged. The heart and mediastinum are unchanged. IMPRESSION: Stable exam. <Electronically signed by Long Cortes > 02/04/21 0916
[2021-02-04] MEDS: FENTANYL/BUPIVACAINE BAG 250 ML EPIDURAL SCH (10:25)
[2021-02-04] MEDS ORDERED: AMIODARONE HCL 150 MG in IV 1 EA IV STA (11:34)
[2021-02-04] MEDS ORDERED: FUROSEMIDE 40MG/4ML VIAL (J1940) IV ONE (11:35)
--- NOTE | 2021-02-04 12:09 | IPN ---
PROGRESS NOTE DATE: 02/04/2021 Mr. Pelletier has had a fairly stable 24 hours. He spontaneously converted to a sinus rhythm; however, just now, about 15 minutes ago, he went back into atrial fibrillation with a rate of about 98-100. Dr. Downs was notified and is doing to start him on amiodarone. He is breathing well, and his pain is being well controlled at the chest tube insertion sites. His vital signs show a maximum temperature of 98.0 with a heart rate that ranges between 72-75, predominantly in a sinus rhythm but now in atrial fibrillation with a respiratory rate that is constant at 18 who is 91%-96% saturated on room air and whose blood pressure is ranging between 128/70 to 106/65. His intake and output for the past 24 hours has been recorded as 2195 in and 1690 out, for a positivity of 500 mL. He has put 265 mL out of the chest tube, and there is no air leak. Weight today is 84.6 kg compared to 85.5 kg 2 days ago. PHYSICAL EXAMINATION: He has some coarse rhonchi on the left side. Percussion notes are full to the diaphragm. Right side shows normal vesicular sounds. Cardiac exam is without murmurs, clicks, gallops, or rubs. I cannot feel his point of maximal impulse (PMI). S1 and S2 are normal. Abdomen is soft and nontender. Bowel sounds are positive. There is no hepatomegaly. No costovertebral angle (CVA) tenderness. He is still distended and tympanitic. Extremities show no pretibial edema, no calf tenderness, no differential swelling of the upper extremities. Skin is warm, dry, and perfused without cyanosis or mottling, including that of the nailbeds and knees. Neck is supple. There is no jugular venous distention. No subcutaneous emphysema. Trachea is midline. Mouth shows the mucous membranes to be pink and moist. Lips and commissures without lesions. No thrush. Eyes show his pupils to be equal and reactive. Extraocular motion intact. Sclerae anicteric. Neurologic shows II-XII intact. Normal gross motor, gross sensation intact. Gait is not tested. Psychiatric shows him to be awake, alert, and oriented times three with appropriate mood and affect and conversational. His white count today is down to 7.5 with a hemoglobin and hematocrit of 10.9 and 32.9 secondary to hemodilution. Platelet count is 202 and stable, and differential shows 63% neutrophils, 21% lymphocytes, 10% monocytes. There are no immature forms or toxic granulations. His electrolytes are normal with a BUN and creatinine of 15 and 0.84, a glucose of 85, and a calcium of 8.0. His chest x-ray today shows his lung fully expanded to the chest wall. There is no subcutaneous emphysema, and there is no mediastinal emphysema. Costophrenic angles are sharp, and there are no infiltrates. Chest tubes are in good place. IMPRESSION: 1. Postoperative day #4, status post left upper lobectomy. 2. Adenocarcinoma, at least stage II into the chest wall and the cupula with final pathology pending. 3. Chronic obstructive pulmonary disease (COPD). 4. Hypercholesterolemia. 5. History of alcohol abuse. 6. History of tobacco abuse. 7. Atrial fibrillation, atrial flutter with now controlled ventricular response. PLAN AND DISCUSSION: I am gratified that his white count is coming down. His wound is drying up. I am going to diurese him today. I still do not think we are out of the jackson with regard to a potential air leak, and I will again keep him in the intensive care unit (ICU). He is on vancomycin. As noted above, Dr. Downs is going to start him on amiodarone.
[2021-02-04] MEDS ORDERED: AMIODARONE HCL 150 MG in IV 1 EA IV ONE (19:30)
[2021-02-05] VITALS: BP 132/70
[2021-02-05] MEDS: METOCLOPRAMIDE INJ 10MG/2ML VIAL (J2765 PER 1) IV SCH ×5 (00:24→23:52)
[2021-02-05] MEDS: VANCOMYCIN HCL 750 MG, VIAL MATE ADAPTER 1 EACH in NS 250 ML IV SCH ×2 (00:24→13:20)
[2021-02-05] MEDS: KETOROLAC 30 MG/ML 1ML VIAL IV SCH ×5 (00:24→23:52)
[2021-02-05] MEDS: VANCOMYCIN HCL 500 MG in D5W MINI-BAG PLUS 100 ML IV SCH ×2 (01:45→13:20)
[2021-02-05] MEDS: LEVALBUTEROL 1.25 MG/0.5 ML CONCENTRATE NEB NEB SCH ×4 (02:37→19:41)
[2021-02-05 05:26] LABS: BASO # 0.1 10^3/uL (0.0-0.2); BASO % 0.8 % (0.0-1.0); EOS # 0.4 10^3/uL (0.0-0.5); EOS % 5.5 % (0.0-3.0); HEMATOCRIT 35.1 % (42.0-52.0); HEMOGLOBIN 11.6 g/dl (13.5-17.5); LYMPH # 1.5 10^3/uL (1.5-5.0); LYMPH % 20.2 % (24.0-44.0); MEAN CORPUSCULAR HEMOGLOBIN 32.1 pg (27.0-33.0); MEAN CORPUSCULAR VOLUME 97.2 fl (80.0-96.0); MONO % 13.7 % (2.0-8.0); NEUTROPHILS # 4.4 10^3/uL (1.5-8.5); NEUTROPHILS % 58.7 % (36.0-66.0); PLATELET COUNT, AUTOMATED 225 10^3/uL (150-450); RED BLOOD COUNT 3.61 10^6/uL (4.30-6.10); WHITE BLOOD COUNT 7.5 10^3/uL (4.0-10.0)
[2021-02-05 05:46] LABS: BLOOD UREA NITROGEN 15 MG/DL (7-18); CALCIUM LEVEL 8.5 MG/DL (8.5-10.1); CARBON DIOXIDE LEVEL 30 MEQ/L (21-32); CHLORIDE LEVEL 104 MEQ/L (98-107); CREATININE FOR GFR 0.82 MG/DL (0.70-1.30); GLOMERULAR FILTRATION RATE > 60.0 (>56); GLUCOSE, FASTING 91 MG/DL (70-100); POTASSIUM SERUM 4.3 MEQ/L (3.5-5.1); SODIUM LEVEL 137 MEQ/L (136-145)
[2021-02-05 08:00] VITALS: BP 126/76
[2021-02-05] MEDS ORDERED: FUROSEMIDE 40MG/4ML VIAL (J1940) IV ONE (08:00)
[2021-02-05] MEDS ORDERED: AMIODARONE HCL 150 MG in IV 1 EA IV ONE (08:05)
--- NOTE | 2021-02-05 08:16 | REP ---
INDICATION: s/p lobectomy JOSE EDUARDO COMPARISON: 02/04/2021 TECHNIQUE: PA and lateral. FINDINGS: Two left-sided chest tubes and postsurgical changes are again noted with suspected minimal left basilar atelectasis and small bilateral pleural effusions. No obvious pneumothorax. Mediastinum and cardiac silhouette stable. Skeletal structures intact. IMPRESSION: Stable left-sided postsurgical changes along with left basilar atelectasis and small pleural effusion. Stable suspected small right pleural effusion. <Electronically signed by Luis Berry > 02/05/21 0896
[2021-02-05] MEDS: AMIODARONE 200 MG TAB (PACERONE) PO SCH ×2 (08:44→22:02)
[2021-02-05] MEDS: DOCUSATE SODIUM 100MG CAPSULE PO SCH ×2 (08:45→22:02)
[2021-02-05] MEDS: PANTOPRAZOLE 40MG TAB (PROTONIX) PO SCH (08:45)
[2021-02-05] MEDS: MOM 30ML SUSPENSION UDC PO SCH (08:45)
[2021-02-05] MEDS: HEPARIN SOD (PORCINE) 5000UNITS/ML 1ML VIAL/SYRINGE SC SCH ×2 (08:45→22:02)
[2021-02-05] MEDS: buPROPion **SR TABLET** (ZYBAN) 150MG PO SCH ×2 (08:45→22:01)
[2021-02-05] MEDS: ATORVASTATIN 20 MG TAB PO SCH (08:45)
--- NOTE | 2021-02-05 09:16 | IPN ---
PROGRESS NOTE DATE: 02/05/2021 Mr. Pelletier unfortunately went into atrial fibrillation/flutter again yesterday. After I rounded on him in the morning and he was in sinus rhythm, approximately an hour and a half later he went into atrial flutter and stayed in that for most of the day and the rest of the night. This morning, when I am seeing him, he remains in atrial fibrillation with controlled rate. He has no awareness of the arrhythmia and overall has been feeling quite well. He gets a little short of breath with activity, but otherwise is essentially asymptomatic. Vital signs this morning: Blood pressure 138/70, heart rate has been from 70s to 120s, he is afebrile, saturation 95% on room air. Weight is recorded as 84.6 kg. He is alert, oriented, appropriate. His jugular venous pressure (JVP) is not high. Lungs are relatively clear on the right, on the left somewhat diminished. There is a chest tube still in place with relatively high output. Heart exam reveals irregular rhythm without appreciable gallop, rub, or murmur. Abdomen is soft, nontender, there is no peripheral edema. LABORATORIES: CBC revealed WBC count 7.5, hemoglobin 11.6, hematocrit 35, platelet count is 225,000. Basic metabolic panel is normal. Digoxin level was 1.6 two days ago. ASSESSMENT AND PLAN: Mr. Pelletier is a 55-year-old man who has no known prior history of arrhythmias who developed atrial fibrillation after left upper lobe lobectomy for adenocarcinoma. Initially, it appeared that it would be just an isolated incident, but unfortunately he has had recurrent episodes. Consequently, I will start him on amiodarone with plan to continue the medication for approximately a month. He already received several doses during this hospitalization IV on top of digoxin, but it appears that the arrhythmia has been more stubborn than expected and consequently a short course of oral antiarrhythmic I am afraid will be warranted. I am going to discontinue digoxin and if we have trouble with rate control we will add beta blockers instead, that will reduce the risk of toxicity. As far as the anticoagulation is concerned, he still has a chest tube with significant output of serosanguineous fluid and consequently I believe that the risk is probably higher than the benefit, nevertheless if it is okay with Dr. Tenorio for anticoagulation it would be warranted. He should be anticoagulated after discharge, at least for a short period of time, I am talking 3-4 weeks.
[2021-02-05] MEDS: FENTANYL/BUPIVACAINE BAG 250 ML EPIDURAL SCH (10:38)
--- NOTE | 2021-02-05 10:39 | IPN ---
PROGRESS NOTE DATE: 02/05/2021 SUBJECTIVE: This is now the fifth postoperative day for Mr. Pelletier. He till remains in atrial flutter. He has been started on amiodarone, but he has not yet converted. He does have definite atrial activity and I will therefore hold off on anticoagulation to see if the amiodarone will take effect. His pain is being well-controlled at the incision site with the epidural. He is sitting up comfortably. OBJECTIVE: VITAL SIGNS: Show a T-max of 97.6 with a heart rate that ranges between 74 and 123 now in atrial flutter. Respiratory rate of 18 to 20 without the use of accessory muscles and whose blood pressure is ranging between 132/70 to 106/70. INTAKE AND OUTPUT: Over the past 24 hours has been recorded as 2370 in and 2180 out for a positivity of 190 mL. He has put 280 mL out the chest tube and there is no air leak. Weight today is 84.6 kg, which is the same as yesterday. RESPIRATORY: He has some mild coarse rhonchi on the left side. Percussion note is full to the diaphragm. Right side shows normal vesicular sounds. CARDIAC: Without murmurs, clicks, gallops, or rubs. I cannot feel his PMI. S1 and S2 are normal. ABDOMEN: Soft and nontender. Bowel sounds are positive. There is no hepatomegaly. No CVA tenderness. He is still slightly distended. He had a bowel movement last night. EXTREMITIES: Show no pretibial edema. No calf tenderness. No differential swelling of the upper extremities. SKIN: Warm, dry, and perfused without cyanosis or mottling, including that of the nail beds and knees. NECK: Supple. There is no jugular venous distention. No subcutaneous emphysema. Trachea is midline. MOUTH: Shows the mucous membranes to be pink and moist. Lips and commisures are without lesions and no thrush. EYES: Show his pupils equal and reactive. Extraocular muscles are intact. Sclerae nonicteric. NEUROLOGIC: Shows II through XII intact. Normal gross motor, gross sensation intact. Gait is not tested. PSYCHIATRIC: Shows him to be awake, alert, and oriented x3 with appropriate mood and affect and conversational. INVESTIGATIONS: I was informed by Dr. Roy of pathology that all of his nodes are negative. There is tumor at the cauterized resection line, which I already expected, making him stage II disease. His white count is 7.5 with hemoglobin and hematocrit of 11.6 and 35.1 respectively. Platelet count is 225,000 and differential shows 58% neutrophils, 20% lymphocytes, and 13% monocytes. There are no immature forms and no toxic granulations. Electrolytes are normal with a BUN and creatinine of 15 and 0.82 with glucose of 91 and a calcium of 8.5. Chest x-ray shows his lungs fully expand to the chest wall. Costophrenic angle are sharp. There are no infiltrates. IMPRESSION: 1. Postoperative day #5 status post left upper lobectomy. 2. Adenocarcinoma stage II to the chest wall with all nodes negative. 3. Chronic obstructive pulmonary disease (COPD). 4. Hypercholesterolemia. 5. History of alcohol abuse. 6. History of tobacco abuse. 7. Atrial fibrillation/atrial flutter with fairly well-controlled ventricular response. We are hoping for conversion with amiodarone. PLAN AND DISCUSSION: I am getting more confident that the pinpoint air leak in the bronchus has sealed and is not going to reopen. I am still continuing on vancomycin. Dr. Downs is overseeing his cardiac rhythm. The question is going to be whether to fully anticoagulate him. I would like to hold off another day. If we do anticoagulate him, we will have to remove the epidural prior to doing so. I am hoping to get the chest tubes out tomorrow. I will diurese him today.
[2021-02-05 12:00] VITALS: BP 116/78
[2021-02-05 16:00] VITALS: BP 108/63
[2021-02-05 20:00] VITALS: BP 159/87
[2021-02-05] MEDS: ACETAMINOPHEN TAB 650MG DOSE (2X325MG) PO PRN (22:02)
[2021-02-06] VITALS: BP 135/79
[2021-02-06] MEDS ORDERED: UNRESOLVED CLARIFICATION ENTRY XX SCH (00:01)
[2021-02-06] MEDS: VANCOMYCIN HCL 750 MG, VIAL MATE ADAPTER 1 EACH in NS 250 ML IV SCH ×2 (00:01→12:53)
[2021-02-06] MEDS: VANCOMYCIN HCL 500 MG in D5W MINI-BAG PLUS 100 ML IV SCH ×2 (01:41→14:16)
[2021-02-06] MEDS: LEVALBUTEROL 1.25 MG/0.5 ML CONCENTRATE NEB NEB SCH ×4 (02:24→20:29)
[2021-02-06 04:00] VITALS: BP 134/73
[2021-02-06 04:54] LABS: BASO # 0.1 10^3/uL (0.0-0.2); BASO % 0.8 % (0.0-1.0); EOS # 0.4 10^3/uL (0.0-0.5); EOS % 5.4 % (0.0-3.0); HEMATOCRIT 34.5 % (42.0-52.0); HEMOGLOBIN 11.6 g/dl (13.5-17.5); LYMPH # 1.3 10^3/uL (1.5-5.0); LYMPH % 16.3 % (24.0-44.0); MEAN CORPUSCULAR HEMOGLOBIN 32.5 pg (27.0-33.0); MEAN CORPUSCULAR HGB CONC 33.6 g/dl (32.0-36.5); MEAN CORPUSCULAR VOLUME 96.6 fl (80.0-96.0); MONO % 12.1 % (2.0-8.0); NEUTROPHILS % 64.1 % (36.0-66.0); PLATELET COUNT, AUTOMATED 252 10^3/uL (150-450); RED BLOOD COUNT 3.57 10^6/uL (4.30-6.10); WHITE BLOOD COUNT 7.8 10^3/uL (4.0-10.0)
[2021-02-06] MEDS: METOCLOPRAMIDE INJ 10MG/2ML VIAL (J2765 PER 1) IV SCH ×3 (05:07→18:37)
[2021-02-06] MEDS: KETOROLAC 30 MG/ML 1ML VIAL IV SCH ×3 (05:07→18:38)
[2021-02-06 05:16] LABS: BLOOD UREA NITROGEN 19 MG/DL (7-18); CALCIUM LEVEL 8.2 MG/DL (8.5-10.1); CARBON DIOXIDE LEVEL 29 MEQ/L (21-32); CHLORIDE LEVEL 103 MEQ/L (98-107); CREATININE FOR GFR 0.85 MG/DL (0.70-1.30); GLOMERULAR FILTRATION RATE > 60.0 (>56); GLUCOSE, FASTING 95 MG/DL (70-100); POTASSIUM SERUM 4.1 MEQ/L (3.5-5.1); SODIUM LEVEL 138 MEQ/L (136-145)
[2021-02-06] MEDS ORDERED: FUROSEMIDE 40MG/4ML VIAL (J1940) IV ONE (07:10)
[2021-02-06 08:00] VITALS: BP 136/77
--- NOTE | 2021-02-06 08:42 | IPN ---
PROGRESS NOTE DATE: 02/06/2021 SUBJECTIVE: Mr. Pelletier converted to sinus rhythm yesterday shortly after 2 o'clock in the afternoon and has remained in sinus rhythm since. He feels well. He does not have any acute complaints. He denies any chest pain. Denies dyspnea. OBJECTIVE: VITAL SIGNS: Blood pressure 134/74, heart rate has been 70s and 80s. He is afebrile. His weight was recorded as 82.8 kg. He had about 300 ml of output from his chest tube yesterday. NECK: JVP is not high. LUNGS: Clear on the right, on the left somewhat diminished at the base. I do not appreciate any wheezing or crackles. HEART: Regular rhythm without gallop, rub or murmur. ABDOMEN: Soft. EXTREMITIES: Free of edema. LABORATORY DATA: CBC showed a WBC count of 7.8, hemoglobin 11.6, hematocrit 34.5, platelet count 252,000. Basic metabolic panel is normal. ASSESSMENT AND PLAN: Mr. Pelletier is a 55-year-old man who underwent left upper lobectomy for adenocarcinoma and in the postoperative period developed atrial fibrillation. He initially received Digoxin with acceptable rate control and eventually conversion to sinus rhythm but because of frequent relapses of atrial fibrillation I decided to give him amiodarone initially a few doses IV and eventually starting oral dose. I do foresee that we will continue amiodarone in oral form for about three to four weeks and then it can be discontinued. As far as the anticoagulation is concerned, I believe that a brief course is called for. He has had multiple episodes and some of them lasted more than six to eight hours. It can be started when felt safe by Dr. Tenorio.
--- NOTE | 2021-02-06 09:23 | REP ---
INDICATION: s/p lobectomy JOSE EDUARDO COMPARISON: 02/05/2021 TECHNIQUE: PA and lateral. FINDINGS: Two left-sided chest tubes are in stable position. There appears to be somewhat improved aeration to the left hemithorax. Right hemithorax is relatively clear/stable although trace right basilar atelectasis and possible small right pleural reaction cannot be excluded. No obvious pneumothorax. Mediastinum and cardiac silhouette are stable and grossly within normal limits. Skeletal structures are intact. IMPRESSION: Presumed improved aeration to the left hemithorax. Cannot exclude trace right basilar atelectasis and pleural reaction. <Electronically signed by Luis Berry > 02/06/21 0925
[2021-02-06] MEDS: MOM 30ML SUSPENSION UDC PO SCH (09:45)
[2021-02-06] MEDS: AMIODARONE 200 MG TAB (PACERONE) PO SCH ×2 (09:46→20:53)
[2021-02-06] MEDS: DOCUSATE SODIUM 100MG CAPSULE PO SCH ×2 (09:46→20:53)
[2021-02-06] MEDS: buPROPion **SR TABLET** (ZYBAN) 150MG PO SCH ×2 (09:46→20:53)
[2021-02-06] MEDS: PANTOPRAZOLE 40MG TAB (PROTONIX) PO SCH (09:46)
[2021-02-06] MEDS: HEPARIN SOD (PORCINE) 5000UNITS/ML 1ML VIAL/SYRINGE SC SCH ×2 (09:46→20:52)
[2021-02-06] MEDS: ATORVASTATIN 20 MG TAB PO SCH (09:47)
[2021-02-06] MEDS: FENTANYL/BUPIVACAINE BAG 250 ML EPIDURAL SCH (10:47)
[2021-02-06] MEDS: NORCO, ANEXSIA 5/325MG TABLET (HYDROcodone/ACETAMINOPHEN) PO PRN ×2 (15:44→20:53)
--- NOTE | 2021-02-06 15:45 | IPN ---
PROGRESS NOTE DATE: 02/06/2021 This is now the 6th postoperative day for Mr. Downs. He is now converted back to sinus rhythm. His chest tubes have put out minimally. His vital signs show a maximum temperature of 97.8 with a heart rate that ranges between 74-80 in a sinus rhythm, respiratory rate of 16-18 without the use of accessory muscles, who is 95%-97% saturated on room air whose blood pressure is ranging between 136/77 to 134/73. His intake and output for the past 24 hours has been recorded as 2686 in and 3060 out, for a negative of 374 mL. He has put 300 mL out of the chest tube but only 40 mL in the last 12 hours. His weight today is 82.8 kg compared to 84.6 kg yesterday. There is no air leak. PHYSICAL EXAMINATION: Shows equal breath sounds on either side. He essentially has normal vesicular sounds, a few coarse rhonchi. Percussion notes are full to the diaphragm. Cardiac exam is without murmurs, clicks, gallops, or rubs. I cannot feel his point of maximal impulse (PMI). S1 and S2 are normal. Abdomen is soft and nontender. Bowel sounds are positive. There is no hepatomegaly. No costovertebral angle (CVA) tenderness. Extremities show no pretibial edema, no calf tenderness, no differential swelling of the upper extremities. Skin is warm, dry, and perfused without cyanosis or mottling, including that of the nailbeds and knees. Neck is supple. There is no jugular venous distention. No subcutaneous emphysema. Trachea is midline. Mouth shows the mucous membranes to be pink and moist. Lips and commissures without lesions. No thrush. Eyes show his pupils to be equal and reactive. Extraocular motion intact. Sclerae anicteric. Neurologic shows II-XII intact. Normal gross motor, gross sensation intact. Gait is not tested. Psychiatric shows him to be awake, alert, and oriented times three with appropriate mood and affect and conversational. His white count today is 7.8 with a hemoglobin and hematocrit of 11.6 and 34.5, essentially unchanged from yesterday. Platelet count is 252, which is also stable. Differential shows 64% neutrophils, 16% lymphocytes, 12% monocytes. There are no immature forms or toxic granulations. His chemistries today showed normal electrolytes with a BUN and creatinine of 19 and 0.85, a glucose of 95, and calcium is 8.2. Discussed with pathology yesterday being moderately to poorly differentiated adenocarcinoma, 2.7 cm in its greatest diameter and invading the visceral and parietal pleura, and a cauterized portion of the tumor also contained malignant cells. All nodes were negative. This makes him stage II disease with direct invasion of the chest wall. IMPRESSION: 1. Postoperative day #6 status post left upper lobectomy. 2. Adenocarcinoma, stage II to the chest wall with all nodes negative. 3. Chronic obstructive pulmonary disease (COPD). 4. Hypercholesterolemia. 5. History of alcohol abuse. 6. History of tobacco abuse. 7. Atrial fibrillation/flutter, now converted with amiodarone with a controlled rate. PLAN AND DISCUSSION: I will discontinue his chest tubes today, wean his epidural, and discontinue his Peterson. Will give him oral analgesia during the wean. Hopefully if his pain is satisfactorily controlled we can send him home tomorrow.
[2021-02-06 16:00] VITALS: BP 150/66
[2021-02-06 20:00] VITALS: BP 144/76
[2021-02-07] VITALS: BP 139/80
[2021-02-07] MEDS: VANCOMYCIN HCL 750 MG, VIAL MATE ADAPTER 1 EACH in NS 250 ML IV SCH (00:13)
[2021-02-07] MEDS: KETOROLAC 30 MG/ML 1ML VIAL IV SCH ×2 (00:13→05:42)
[2021-02-07] MEDS: METOCLOPRAMIDE INJ 10MG/2ML VIAL (J2765 PER 1) IV SCH ×2 (00:13→05:41)
[2021-02-07] MEDS: VANCOMYCIN HCL 500 MG in D5W MINI-BAG PLUS 100 ML IV SCH (01:50)
[2021-02-07] MEDS: LEVALBUTEROL 1.25 MG/0.5 ML CONCENTRATE NEB NEB SCH ×2 (01:50→07:08)
[2021-02-07 04:00] VITALS: BP 130/72
[2021-02-07] MEDS: NORCO, ANEXSIA 5/325MG TABLET (HYDROcodone/ACETAMINOPHEN) PO PRN ×2 (05:45→09:42)
[2021-02-07 08:00] VITALS: BP 141/67
[2021-02-07 08:22] LABS: BASO # 0.1 10^3/uL (0.0-0.2); BASO % 0.7 % (0.0-1.0); EOS # 0.4 10^3/uL (0.0-0.5); EOS % 4.1 % (0.0-3.0); HEMATOCRIT 36.9 % (42.0-52.0); HEMOGLOBIN 12.4 g/dl (13.5-17.5); LYMPH % 11.8 % (24.0-44.0); MEAN CORPUSCULAR HEMOGLOBIN 32.5 pg (27.0-33.0); MEAN CORPUSCULAR HGB CONC 33.6 g/dl (32.0-36.5); MEAN CORPUSCULAR VOLUME 96.9 fl (80.0-96.0); MONO # 0.8 10^3/uL (0.0-0.8); MONO % 9.5 % (2.0-8.0); NEUTROPHILS # 6.2 10^3/uL (1.5-8.5); NEUTROPHILS % 72.6 % (36.0-66.0); PLATELET COUNT, AUTOMATED 298 10^3/uL (150-450); RED BLOOD COUNT 3.81 10^6/uL (4.30-6.10); WHITE BLOOD COUNT 8.6 10^3/uL (4.0-10.0)
--- NOTE | 2021-02-07 08:36 | REP ---
INDICATION: s/p lobectomy JOSE EDUARDO COMPARISON: 02/06/2021 TECHNIQUE: PA and lateral. FINDINGS: Previous chest tubes have been removed. Stable pleuroparenchymal postsurgical changes involving the left hemithorax are noted. No obvious residual pneumothorax. The right hemithorax is relatively stable/clear although subtle blunting to the right costophrenic angle may represent small chronic pleural reaction. IMPRESSION: 1. Stable postsurgical changes involving the left hemithorax. No residual pneumothorax identified. Chronic stable changes. 2. No new acute process identified. <Electronically signed by Luis Berry > 02/07/21 0863
[2021-02-07 08:49] LABS: BLOOD UREA NITROGEN 20 MG/DL (7-18); CALCIUM LEVEL 8.7 MG/DL (8.5-10.1); CARBON DIOXIDE LEVEL 31 MEQ/L (21-32); CHLORIDE LEVEL 101 MEQ/L (98-107); CREATININE FOR GFR 1.04 MG/DL (0.70-1.30); GLOMERULAR FILTRATION RATE > 60.0 (>56); GLUCOSE, FASTING 129 MG/DL (70-100); POTASSIUM SERUM 4.2 MEQ/L (3.5-5.1); SODIUM LEVEL 137 MEQ/L (136-145)
[2021-02-07] MEDS: HEPARIN SOD (PORCINE) 5000UNITS/ML 1ML VIAL/SYRINGE SC SCH (09:00)
[2021-02-07] MEDS: MOM 30ML SUSPENSION UDC PO SCH (09:00)
[2021-02-07] MEDS: AMIODARONE 200 MG TAB (PACERONE) PO SCH (09:37)
[2021-02-07] MEDS: PANTOPRAZOLE 40MG TAB (PROTONIX) PO SCH (09:37)
[2021-02-07] MEDS: DOCUSATE SODIUM 100MG CAPSULE PO SCH (09:37)
[2021-02-07] MEDS: buPROPion **SR TABLET** (ZYBAN) 150MG PO SCH (09:37)
[2021-02-07] MEDS: ATORVASTATIN 20 MG TAB PO SCH (09:37)
[2021-02-07] MEDS ORDERED: DOXY-350 PO (11:12)
[2021-02-07] MEDS ORDERED: HYDR-3715 PO (11:12)
[2021-02-07] MEDS ORDERED: AMIO200T3 PO (11:12)
--- NOTE | 2021-02-07 13:29 | DSES ---
DISCHARGE SUMMARY DATE OF ADMISSION: 01/31/2021 DATE OF DISCHARGE: 02/07/2021 DISCHARGE DIAGNOSES: 1. Postoperative day #7 status post left upper lobectomy. 2. 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 3. Chronic obstructive pulmonary disease. 4. Hypercholesterolemia. 5. Atrial fibrillation/flutter, rhythm and rate controlled with amiodarone. HOSPITAL COURSE: Patient is a 55-year-old white male who in late 2019 became short of breath and because of his concern about possible COVID sought medical attention. While he was COVID negative, a chest x-ray showed him to have a left upper lobe lesion, which was confirmed by CT scan. My interpretation of the CT scan preoperatively showed it to be adherent and adjacent to the mediastinum and chest wall. It was hypermetabolic on PET scanning. He was sent for a cardiology evaluation with his stress test not showing any evidence of ST abnormalities or arrhythmias with an estimated ejection fraction of 55% and was cleared for surgery. At the time of initial evaluation there was no pain down his arm, and he had minimal cough with white sputum production. He had no fever, chills, or sweats. He smokes a pack of cigarettes a day. His preoperative pulmonary function tests showed him to have an FEV1 of 2.83, which is 84% of predicted with a diffusing capacity for carbon monoxide (DLCO) of 22.12, which was 79% of predicted. He did undergo a robotic navigation bronchoscopy, which yielded equivocal results. He was therefore taken to the operating room, where he underwent a left upper lobectomy after wedge resection for diagnosis. It was returned adenocarcinoma. Notably, at operation the mass was seen to be adherent and, in fact, growing into the chest wall. The dense adherence was at the cupula. It was carved off the chest wall, but I was very concerned about going any deeper for fear of involving the brachial plexus. The margins did come back positive, and hence the staging of a T3 lesion mapping to a stage IIB classification. A left upper lobectomy was undertaken, and all nodes were negative. Notable also at operation was that there was a small pinpoint air leak at the bronchial staple line. This was overseen, and then a pericardial flap patch was placed over it. The patient never developed an air leak from the chest tubes, although I did treat him with antibiotics consisting of vancomycin for the duration of hospitalization. On the postoperative day he had atrial flutter and fibrillation with a rapid ventricular response, for which he was first digitalized. He had recurrent episodes, and Dr. Downs of cardiology was consulted and eventually started him on amiodarone. This converted his rhythm. He has been in sinus rhythm for 36 hours prior to discharge. His chest tubes were removed on the 6th postoperative day. His pain control was satisfactory. His discharge hemoglobin and hematocrit are 12.4 and 36.9 with a discharge white count of 8.6 and a platelet count of 298. Discharge electrolytes are normal with a BUN and creatinine of 20 and 1.04. Glucose is 129 and a calcium of 8.7. His chest x-ray on the day of discharge showed his lung fully expanded to the chest wall. There was no mediastinal emphysema, nor was there any subcutaneous emphysema. He is being discharged today on his home medications, which include albuterol HFA two puffs four times a day as needed for shortness of breath, aspirin 81 mg daily, atorvastatin 81 mg daily, bupropion 150 mg twice a day, and Anoro Ellipta 62.5/25 one puff daily. I will see him in followup in 7-10 days with a chest x-ray, and Dr. Downs will see him in 2 weeks in cardiology followup. At the time of my followup I will refer him to radiation therapy for radiation to the cupula. EVY
== END 2021-02-07 12:00 | disposition home or self-care (01) | DRG 120 ==
LOC: M OR 06:58 → M ICU 15:28 → M PCU 02-01 12:31 → M ICU 02-01 23:11
PROVIDERS: ADMIT Thoracic Surgery (Cardiothoracic Vascular Surgery); ATTEND Thoracic Surgery (Cardiothoracic Vascular Surgery)
PROC: 0BTG0ZZ Resection of Left Upper Lung Lobe, Open Approach (ICD-10-PCS; principal; 2021-01-31 08:30)
PROC: 0BJ08ZZ Inspection of Tracheobronchial Tree, Via Natural or Artificial Opening Endoscopic (ICD-10-PCS; principal; 2021-01-31 08:30)
PROC: 0B9L8ZZ Drainage of Left Lung, Via Natural or Artificial Opening Endoscopic (ICD-10-PCS; principal; 2021-01-31 08:30)
DX: C34.12 Malignant neoplasm of upper lobe, left bronchus or lung (principal); J44.9 Chronic obstructive pulmonary disease, unspecified; E78.5 Hyperlipidemia, unspecified; Z87.891 Personal history of nicotine dependence; I48.91 Unspecified atrial fibrillation; F10.10 Alcohol abuse, uncomplicated; Z79.82 Long term (current) use of aspirin; Z79.899 Other long term (current) drug therapy; Z88.0 Allergy status to penicillin; Z88.1 Allergy status to other antibiotic agents; Z88.8 Allergy status to other drugs, medicaments and biological substances; Z91.040 Latex allergy status; Z53.31 Laparoscopic surgical procedure converted to open procedure

== ENCOUNTER → 2021-02-17 | Outpatient (CLI) | payer BC ==
[~2021-02-17] MED LIST changes: +AMIO200T3 PO; +ASPI-164 PO; +ATOR80TA59 PO; +BUPR15TASR PO; +DOXY-350 PO; +HYDR-3715 PO
--- NOTE | 2021-02-17 10:40 | REPPI ---
INDICATION: R91.1 SOLIARY PULMONARY NODULE J44.9 COPD. COMPARISON: Multiple latest 02/07/2021 TECHNIQUE: PA and lateral views FINDINGS: The cardiomediastinal silhouette is unchanged. The heart is not enlarged. Postoperative changes again seen involving the left hilum with persistent tenting of the diaphragmatic surface of the left lung. Left apical surgical clips are again noted. The right lung is clear. There is no change in the osseous structures. IMPRESSION: Stable appearing chronic changes without evidence of acute cardiopulmonary disease. <Electronically signed by Hilario Woods > 02/17/21 [id number]
== END ==
LOC: M PLAIMG 09:54
PROVIDERS: ATTEND Thoracic Surgery (Cardiothoracic Vascular Surgery)
DX: R91.1 Solitary pulmonary nodule (principal); J44.9 Chronic obstructive pulmonary disease, unspecified

== ENCOUNTER → 2021-02-26 | Outpatient (REF) | payer BC ==
[2021-02-26 16:25] LABS: APPEARANCE, URINE CLEAR (CLEAR); BACTERIA, URINE AUTO NEGATIVE (NEGATIVE); BASO # 0.1 10^3/uL (0.0-0.2); BASO % 0.6 % (0.0-1.0); BILIRUBIN, URINE AUTO NEGATIVE (NEGATIVE); BLOOD, URINE BLOOD NEGATIVE (NEGATIVE); COLOR, URINE YELLOW (YELLOW); EOS # 0.7 10^3/uL (0.0-0.5); EOS % 7.3 % (0.0-3.0); GLUCOSE, URINE (UA) AUTO NEGATIVE (NEGATIVE); HEMATOCRIT 45.4 % (42.0-52.0); HEMOGLOBIN 14.8 g/dl (13.5-17.5); KETONE, URINE AUTO NEGATIVE (NEGATIVE); LEUKOCYTE ESTERASE, URINE AUTO NEGATIVE (NEGATIVE); LYMPH # 2.3 10^3/uL (1.5-5.0); LYMPH % 26.2 % (24.0-44.0); MEAN CORPUSCULAR HGB CONC 32.6 g/dl (32.0-36.5); MEAN CORPUSCULAR VOLUME 98.1 fl (80.0-96.0); MONO # 0.8 10^3/uL (0.0-0.8); MONO % 9.1 % (2.0-8.0); MUCUS, URINE SMALL (NEGATIVE); NEUTROPHILS % 56.6 % (36.0-66.0); NITRITE, URINE AUTO NEGATIVE (NEGATIVE); PLATELET COUNT, AUTOMATED 257 10^3/uL (150-450); PROTEIN, URINE AUTO NEGATIVE (NEGATIVE); RBC, URINE AUTO 0 /HPF (0-3); RED BLOOD COUNT 4.63 10^6/uL (4.30-6.10); SPECIFIC GRAVITY URINE AUTO 1.006 (1.002-1.035); SQUAMOUS EPITHELIAL CELL UR AU 0 /HPF (0-6); UROBILINOGEN, URINE AUTO 0.2 mg/dL (0.0-2.0); WBC, URINE AUTO 0 /HPF (0-3); WHITE BLOOD COUNT 8.9 10^3/uL (4.0-10.0)
[2021-02-26 17:01] LABS: ALBUMIN 3.6 GM/DL (3.2-5.2); ALT/SGPT 35 U/L (12-78); BILIRUBIN,TOTAL 0.5 MG/DL (0.2-1.0); BLOOD UREA NITROGEN 12 MG/DL (7-18); CALCIUM LEVEL 8.8 MG/DL (8.5-10.1); CARBON DIOXIDE LEVEL 29 MEQ/L (21-32); CHLORIDE LEVEL 101 MEQ/L (98-107); CHOLESTEROL LEVEL 192 MG/DL (<200); CHOLESTEROL RISK RATIO 3.764 (<5); CREATININE FOR GFR 1.13 MG/DL (0.70-1.30); FOLATE 7.6 NG/ML; GLOMERULAR FILTRATION RATE > 60.0 (>56); GLUCOSE, FASTING 91 MG/DL (70-100); HDL CHOLESTEROL 51 MG/DL (>40); LDL CHOLESTEROL 116 MG/DL (<100); NON-HDL-C 141 MG/DL; POTASSIUM SERUM 4.8 MEQ/L (3.5-5.1); SODIUM LEVEL 134 MEQ/L (136-145); TOTAL PROTEIN 7.6 GM/DL (6.4-8.2); TRIGLYCERIDES LEVEL 127 MG/DL (<150)
[2021-02-26 17:03] LABS: VITAMIN B12 LEVEL 291 PG/ML
== END ==
LOC: M SFHCCAPE 07:42
PROVIDERS: ATTEND Physician Assistant
DX: E78.2 Mixed hyperlipidemia (principal); Z12.5 Encounter for screening for malignant neoplasm of prostate; F10.20 Alcohol dependence, uncomplicated

== ENCOUNTER → 2021-03-06 | Outpatient (CLI) | payer BC ==
[~2021-03-06] MED LIST changes: +ACET-907 PO; +ALBU83IN INH; -AMIO200T3 PO; +AMIO200T49 PO; +DEXA4TA PO; +DIGO0.123 PO; +DOCU100C16 PO; +ELIQ5TAB PO; +EZET10TA21 PO; +FLUT1BLS8 INH; +FOLI1TAB11 PO; +LEVO750T13 PO; +LIDO1CRE42 TOP; +LOPR1TAB6 PO; +LORA-674 PO; +OMEP-173 PO; +ONDA-84 PO; +PEG6SYR SC; +PROC10TA5 PO; +THIA100TA PO
== END ==
LOC: M PLAIMG 10:21
PROVIDERS: ATTEND Thoracic Surgery (Cardiothoracic Vascular Surgery)
DX: C34.12 Malignant neoplasm of upper lobe, left bronchus or lung (principal); Z97.8 Presence of other specified devices

== ENCOUNTER → 2021-03-14 | Outpatient (CLI) | payer BC ==
[~2021-03-14] MED LIST changes: -ACET-907 PO; -ALBU83IN INH; +AMIO200T3 PO; -AMIO200T49 PO; -DEXA4TA PO; -DIGO0.123 PO; -DOCU100C16 PO; -ELIQ5TAB PO; -EZET10TA21 PO; -FLUT1BLS8 INH; -FOLI1TAB11 PO; -LEVO750T13 PO; -LIDO1CRE42 TOP; -LOPR1TAB6 PO; -LORA-674 PO; -OMEP-173 PO; -ONDA-84 PO; -PEG6SYR SC; -PROC10TA5 PO; -THIA100TA PO
--- NOTE | 2021-03-14 17:11 | RADONC.CN ---
Radiation Oncology Hx/Consult Radiation Oncology Consult Date of Service: Mar 14, 2021 Pt Identifier Evens Pelletier is a 55 year old male former smoker with a history of [id number] stage IIB NSCLC of the apical JOSE EDUARDO. He underwent left upper lobectomy and LN sampling with Dr. Tenorio on 01/31/21 with pathology showing a positive margin at the parietal pleura. He is seen today for consideration of adjuvant RT. Diagnosis/Treatment History Oncologic History Patient had an incidentally discovered JOSE EDUARDO nodule on CT in 2019. He was referred to Dr. Connors who ordered a PET-CT on 07/12/19 which showed an avid lesion 1.7 cm in extent in the JOSE EDUARDO apex He had a subsequent CT on 11/06/19 which showed stability of the lesion CT chest on 07/15/20 showed growth to 2.0 cm Repeat PET-CT on 11/18/20 showed mild increased hypermetabolism 01/31/21 JOSE EDUARDO lobectomy and LN sampling (Dr. Tenorio) showed NSCLC (adenocarcinoma) PL3, positive margin at parietal pleura, [id number] stage IIB PFTs 12/02/20 FVC 3.50 FEV1 2.83 FEV1/FVC 105% pred Interval History Here with his . Reports he had a somewhat eventful perioperative course due to afib. Feels well now. No ARMSTRONG or cough. No pain in the left arm or shoulder. No impaired ROM. Appetite good and weight stable. Past Medical History: COPD HOL Past Surgical History: Colonoscopy Nasal surgery Spine surgery Family History: Father prostate cancer Paternal gradfather prostate cancer Social History: 40 pack year former smoker quit 2019 Drinks 6 drinks daily 7 days per week Allergies / Meds Allergies: Coded Allergies: buprenorphine (Verified Allergy, Severe, peeling skin, 01/28/21) Penicillins (Verified Allergy, Intermediate, rash, 01/28/21) clarithromycin (Verified Allergy, Intermediate, gums swelling, irritation., 01/28/21) latex (Verified Allergy, Intermediate, rash, 01/28/21) Home Meds Active Scripts Doxycycline Monohydrate (Doxycycline) 100 Mg Capsule, 100 MG PO BID for 10 Days, #20 CAP Prov:Cisco Tenorio M.D. 02/07/21 Hydrocodone/Acetaminophen (Hydrocodone-Acetamin 5-325 mg) 1 Each Tablet, 1 TAB PO Q4-6HP PRN for MILD PAIN (PS 1-4) MDD 6, #30 TAB Prov:Cisco Tenorio M.D. 02/07/21 Reported Medications Aspirin (Aspirin EC) 81 Mg Tablet.dr, 81 MG PO DAILY 01/31/21 Bupropion HCl (Bupropion HCl Sr) 150 Mg Tab.er.12h, 150 MG PO BID 01/31/21 Atorvastatin Calcium (Atorvastatin Calcium) 80 Mg Tablet, 80 MG PO DAILY, TAB 01/31/21 Albuterol Sulfate (Albuterol Sulfate Hfa) 8.5 Gm Hfa.aer.ad, 2 PUFFS INH QIDP PRN for SOB/COUGH 08/15/20 Umeclidinium Brm/Vilanterol Tr (Anoro Ellipta 62.5-25 Mcg INH) 1 Each Blst.w.dev, 1 PUFF INH DAILY 11/10/19 Discontinued Scripts Amiodarone HCl (Amiodarone HCl) 200 Mg Tablet, 400 MG PO BID, #28 TAB Prov:Cisco Tenorio M.D. 02/07/21 Review of Systems Constitutional: Denies: Chills, Fever, Night Sweats Eyes: Denies: Pain, Vision change HEENT: Denies: Head Aches, Dysphagia, Sore Throat Skin: Reports: Other (Dry skin); Denies: Rash, Lesions, Bruising Pulmonary: Denies: Dyspnea, Cough Cardiovascular: Denies: Chest Pain, Palpitations, Edema Gastrointestinal: Denies: Nausea, Vomiting, Abdominal Pain, Diarrhea Hematologic: Denies: Bruising, Petecchia, Enlarged Lymph Nodes Musculoskeletal: Denies: Neck pain, Back pain Neurological: Denies: Weakness, Numbness, Incoordination Psych: Reports: Mood Normal; Denies: Memory Issues, Thoughts of Self Harm Vital Signs Ht 67" Wt 181 lbs BMI 28 T 97.3 P 76 RR 20 BP 156/96 O2 92% Pain 0 Fatigue 0 General Exam: Positive: Alert, Cooperative, No Acute Distress Eye Exam: Positive: PERRLA, EOMI ENT EXAM: Positive: Mucous membr. moist/pink, Pharynx Normal Neck Exam: Negative: Thyromegaly, Lymphadenopathy Chest Exam: Positive: Normal air movement, Diminished (Left apex); Negative: Rales, Rhonchi, Wheezing Heart Exam: Positive: Rate Normal, Regular Rhythm Abdomen Exam: Positive: Soft; Negative: Tenderness, Mass Extremity Exam: Negative: Edema, Tenderness Skin Exam: Positive: Nl turgor and temperature, Pruritus (Dry skin, diffuse, scabs on shins); Negative: Rash Neuro Exam: Positive: Normal Gait, Normal Speech, Cranial Nerves 3-12 NL Psych Exam: Positive: Mental status NL, Mood NL, Memory Intact Diagnostic and Laboratory Diagnostic Review Radiologic images, relevant labs and pathology reports were personally reviewed and discussed with Mr. Pelletier. Assessment and Plan Impression Mr. Pelletier is a 55 year old male former smoker with a history of [id number] stage IIB NSCLC of the apical JOSE EDUARDO. He underwent left upper lobectomy and LN sampling with Dr. Tenorio on 01/31/21 with pathology showing a positive margin at the parietal pleura. He is seen today for consideration of adjuvant RT. Stage JOSE EDUARDO NSCLC [id number] stage IIB Performance Status ECOG 0 Plan We had an extensive discussion with Mr. Pelletier regarding the diagnosis at hand and available therapeutic options. He is doing well now completely healed from his operation. He has no pain, dyspnea or impaired ROM/swelling of the LUE. He had PL3 disease and a positive margin at the parietal pleura in the cupula of the left lung. He has not had post-operative imaging, but he may harbor a small gross residual based on Dr. Tenorio's intraoperative assessment, or microscopic residual only. For this situation, I recommend adjuvant RT 60-66 Gy in 30-33 fractions with VMAT, which should address any residual local disease. I would use VMAT to spare dose to the plexus which is at risk and the esophagus which will also be close by. I do not think he would benefit from concurrent chemotherapy, unless there is an identifiable macroscopic residual tumor on his planning CT. He may however, benefit from sequential systemic therapy. Many patients are now able to receive adjuvant immunotherapy for stage IIB NSCLC following radiation, although this instance of small volume pT3 disease based on pleural invasion is rare, and does not fit easily within any of the prospective immunotherapy study paradigms reported. I will present his case at our tumor board for multidisciplinary input on this point. In any event, after completion of RT I will obtain a [address] chest for response assessment and monitoring. We discussed the logistics of receiving radiation therapy in detail including the need for a 1-time planning session. This can occur in the next week or so. We discussed the side effects of treatment including fatigue, skin reaction, plexopathy, and esophagitis. I think the risk of significant side effects in thi s instance is modest. After discussing the risks, benefits and alternatives to radiation therapy, Mr. Pelletier was amenable to pursuing radiotherapy. All questions were answered to the patient's satisfaction. We instructed the patient that if there were any questions,concerns or changes in clinical status in the interim to contact us. Recommendations Adjuvant RT 60-66 Gy in 30-33 fractions with VMAT 4D simulation in the next week Tumor board review for consideration of adjuvant therapy Billing Statement Total time of [54] minutes was spent preparing for the visit [3], obtaining HPI [6], examining the patient [5], reviewing diagnostic tests [8], discussing management options [21], coordinating care [4], and writing this note [7]. NATALIA CODY MD Mar 14, 2021 17:11
== END ==
LOC: M ONCR 14:26
PROVIDERS: ATTEND General Practice
DX: C34.12 Malignant neoplasm of upper lobe, left bronchus or lung (principal); I48.91 Unspecified atrial fibrillation; Z79.82 Long term (current) use of aspirin; Z79.899 Other long term (current) drug therapy; Z87.891 Personal history of nicotine dependence; Z88.0 Allergy status to penicillin; Z88.1 Allergy status to other antibiotic agents; Z88.5 Allergy status to narcotic agent; Z91.040 Latex allergy status

== ENCOUNTER → 2021-04-29 | Outpatient (RCR) | payer BC ==
[~2021-04-29] MED LIST changes: +ACET-907 PO; +ALBU83IN INH; -AMIO200T3 PO; +AMIO200T49 PO; +DEXA4TA PO; +DIGO0.123 PO; +DOCU100C16 PO; +ELIQ5TAB PO; +EZET10TA21 PO; +FLUT1BLS8 INH; +FOLI1TAB11 PO; +LEVO750T13 PO; +LIDO1CRE42 TOP; +LOPR1TAB6 PO; +LORA-674 PO; +OMEP-218 PO; +ONDA-84 PO; +PEG6SYR SC; +PROC10TA5 PO; +THIA100TA PO
== END ==
LOC: M ONCR 03-31 13:44
PROVIDERS: ATTEND General Practice
DX: C34.12 Malignant neoplasm of upper lobe, left bronchus or lung (principal)

== ENCOUNTER → 2021-05-08 | Outpatient (CLI) | payer BC ==
[~2021-05-08] MED LIST changes: -ACET-907 PO; -ALBU83IN INH; +AMIO200T3 PO; -AMIO200T49 PO; -DEXA4TA PO; -DIGO0.123 PO; -DOCU100C16 PO; -ELIQ5TAB PO; -FLUT1BLS8 INH; -FOLI1TAB11 PO; -LEVO750T13 PO; -LIDO1CRE42 TOP; +LIDOCAINE 1% MDV 20ML VIAL As Ordered ONE; -LOPR1TAB6 PO; -LORA-674 PO; +MIDAZOLAM INJ 2MG/2ML VIAL (J2250 PER 1MG) As Ordered ONE; +NS 1,000 ML IV SCH; -OMEP-218 PO; -ONDA-84 PO; -PEG6SYR SC; -PROC10TA5 PO; -THIA100TA PO; +VANCOMYCIN 1000MG/20ML VIAL As Ordered ONE; +VANCOMYCIN HCL 1,000 MG, VIAL MATE ADAPTER 1 EACH in NS 250 ML IV ONE; +diphenhydrAMINE 50MG/ML VIAL (J1200) As Ordered ONE; +fentaNYL 100 MCG/2 ML INJECTION (J3010) As Ordered ONE
--- NOTE | 2021-05-08 10:14 | IRHP ---
[facility] IR Pre-Procedure H & P General Date of Service: May 08, 2021 Procedure: Same Day Surgery Interval History and Physical I have seen the patient and reviewed last H & P performed within 30 days. There is no significant interval change. History of Present Illness Chief Complaint The patient is a 55-year-old male admitted with a reason for visit of Lung Ca. PRE-PROCEDURE DIAGNOSIS: Lung cancer HEART: Normal rate. LUNGS: Normal breathing at rest. ASA Classification ASA Classification: III-Severe systemic dis. Mallampati Score: II NPO: Yes Problems with prior sedation: No Obstructive Sleep Apnea: No Plan moderate sedation Allergies Coded Allergies: buprenorphine (Verified Allergy, Severe, peeling skin, 01/28/21) Penicillins (Verified Allergy, Intermediate, rash, 01/28/21) clarithromycin (Verified Allergy, Intermediate, gums swelling, irritation., 01/28/21) latex (Verified Allergy, Intermediate, rash, 01/28/21) Home Medications Scheduled Aspirin (Aspirin EC), 81 MG PO DAILY, (Reported) Atorvastatin Calcium (Atorvastatin Calcium), 80 MG PO DAILY, (Reported) Bupropion HCl (Bupropion HCl Sr), 150 MG PO BID, (Reported) Ezetimibe (Ezetimibe), 10 MG PO DAILY, (Reported) Umeclidinium Brm/Vilanterol Tr (Anoro Ellipta 62.5-25 Mcg INH), 1 PUFF INH DAILY, (Reported) Scheduled PRN Albuterol Sulfate (Albuterol Sulfate Hfa), 2 PUFFS INH QIDP PRN for SOB/COUGH, (Reported) Discontinued Medications Doxycycline Monohydrate (Doxycycline), 100 MG PO BID Discontinued Reason: Pt states not taking Hydrocodone/Acetaminophen (Hydrocodone-Acetamin 5-325 mg), 1 TAB PO Q4-6HP PRN for MILD PAIN (PS 1-4) Discontinued Reason: Pt states not taking BRITTNI ROJO MD May 08, 2021 10:14
--- NOTE | 2021-05-08 12:20 | IRPON ---
IR Postoperative Note Date Of Procedure: May 08, 2021 Time Of Procedure: 12:19 IR Postoperative Note IR Ultrasound and fluoroscopy guided port placement. IR Ultrasound of the neck. IR Moderate sedation. Clinical indication: Lung cancer. Physician: Dr. Marin. Procedure: The patient was advised of the benefits, risks, and alternatives of the procedure and informed consent was obtained. A time-out was performed with verification of the patient's name, MRN, site of procedure and type of procedure to be performed. The patient was positioned in the supine position on the angiographic table. The site was prepped and draped in the usual sterile fashion. Moderate sedation was performed by the physician including the presence of an independent trained RN who assisted and monitored the patient's level of consciousness and physiologic status. Following the administration of fentanyl and Versed , the physician spent 45 minutes of continuous face to face time with the patient. Ultrasound of the neck reveals a patent and compressible right internal jugular vein. A skin care therapist radiograph reveals cardiomegaly. The neck and anterior chest wall were anesthetized with lidocaine. The right internal jugular vein was accessed using a microintroducer needle under ultrasound guidance, via a lateral approach. An 018 wire was advanced into the superior vena cava, the needle was removed and a microsheath was placed. An Amplatz wire was then passed into the inferior vena cava. An incision at the internal jugular vein access site and anterior chest wall were made using a scalpel. An incision was made at the anterior chest wall. A small pocket was created using a combination of blunt and sharp dissection. A tunneling device was then used to pass the catheter from the pocket to the neck puncture site. An 8- [place] Angio [employer] Smart power port was then positioned in the pocket. The catheter was then measured and cut. The introducer sheath was exchanged for a peel-away sheath. The catheter was passed through the peel-away sheath into the internal jugular vein and the peel-away sheath was removed. The port tip was positioned at the cavoatrial junction. The port was then accessed with a Farias needle. The port flushes and aspirates well. The puncture site in the neck was closed. The chest wall incision was then closed with 2-0 Vicryl and 4-0 Monocryl. Glue and Steri- Strips were applied. A sterile dressing was then applied. The patient tolerated the procedure well and was returned to the PRU in stable condition. Estimated blood loss: <5 ml. Complications: None. Conclusion: 1. Successful placement of an 8-[place] Angio [employer] Smart power port via the right internal jugular vein. The port is ready for immediate use. 2. Patient to follow up in IR clinic in 2 weeks. Thank you for this referral. BRITTNI MARIN MD May 08, 2021 12:20
[2021-05-08 13:00] VITALS: BP 144/98
== END ==
LOC: M IRPRO 10:03
PROVIDERS: ATTEND Specialist
DX: C34.90 Malignant neoplasm of unspecified part of unspecified bronchus or lung (principal)
CPT/HCPCS: 36561; 99152; 99153; C1769; C1788; C1894; J1200; J1642; J1644; J2250; J3010; J3370

== ENCOUNTER → 2021-05-27 | Outpatient (POV) | payer BC ==
[~2021-05-27] VITALS: Ht 170.2 cm; Wt 83.6 kg
[~2021-05-27] MED LIST changes: -LIDOCAINE 1% MDV 20ML VIAL As Ordered ONE; -MIDAZOLAM INJ 2MG/2ML VIAL (J2250 PER 1MG) As Ordered ONE; -NS 1,000 ML IV SCH; -VANCOMYCIN 1000MG/20ML VIAL As Ordered ONE; -VANCOMYCIN HCL 1,000 MG, VIAL MATE ADAPTER 1 EACH in NS 250 ML IV ONE; -diphenhydrAMINE 50MG/ML VIAL (J1200) As Ordered ONE; -fentaNYL 100 MCG/2 ML INJECTION (J3010) As Ordered ONE
[2021-05-27 14:30] VITALS: BP 136/84
--- NOTE | 2021-05-29 11:43 | IRPN ---
[facility] IR Progress Note IR Progress Note DATE: May 27, 2021 FOLLOW-UP: Status post port placement. Patient reports doing well. No fevers, chills or pain at site. ON EXAMINATION: Port site appears to be healing well. No redness, fluctuance or discharge. IMPRESSION: Doing well status post port placement. No further follow-up scheduled unless initiated by patient and/or referring provider. Thank you for this referral Allergies Coded Allergies: buprenorphine (Verified Allergy, Severe, peeling skin, 01/28/21) Penicillins (Verified Allergy, Intermediate, rash, 01/28/21) clarithromycin (Verified Allergy, Intermediate, gums swelling, irritation., 01/28/21) latex (Verified Allergy, Intermediate, rash, 01/28/21) VS,Fishbone, I+O VS, Fishbone, I+O Vital Signs Date Time Temp Pulse Resp B/P (MAP) Pulse Ox O2 Delivery O2 Flow Rate FiO2 05/27/21 14:30 98.0 72 20 136/84 (101) 100 Room Air BRITTNI ROJO MD May 29, 2021 11:43
== END ==
LOC: M IRPOV 14:17
PROVIDERS: ATTEND Radiology Diagnostic Radiology
DX: Z45.2 Encounter for adjustment and management of vascular access device (principal); Z88.0 Allergy status to penicillin; Z88.1 Allergy status to other antibiotic agents; Z88.6 Allergy status to analgesic agent; Z91.040 Latex allergy status

== ENCOUNTER → 2021-05-29 | Outpatient (RCR) | payer BC | LOC: M ONCR 04-30 14:53 | PROVIDERS: ATTEND General Practice | DX: C34.12 Malignant neoplasm of upper lobe, left bronchus or lung (principal) ==

== ENCOUNTER 2021-06-02 14:43 | Outpatient (RCR) | payer BC ==
[2021-06-13] MEDS ORDERED: ONDA8TAB10 PO (10:42)
[2021-06-13] MEDS ORDERED: DEXA4TA PO (10:42)
[2021-06-13] MEDS ORDERED: LIDO1CRE42 TOP (10:42)
[2021-06-13] MEDS ORDERED: PROC10TA4 PO (10:42)
== END 2021-06-29 ==
LOC: M ONCR 14:43
PROVIDERS: ATTEND General Practice
DX: C34.12 Malignant neoplasm of upper lobe, left bronchus or lung (principal)

== ENCOUNTER → 2021-06-10 | Outpatient (CLI) | payer BC ==
[~2021-06-10] MED LIST changes: +ISOVUE-370 76% 100ML VIAL As Ordered ONE
--- NOTE | 2021-06-10 12:03 | REP ---
INDICATION: MAL BENJY OF UPPER LOBE COMPARISON: 12/31/2020, 07/15/2020 TECHNIQUE: Axial contrast enhanced images from the thoracic inlet to the upper abdomen with coronal and sagittal reformations using 75 ml Isovue 370 intravenous contrast material. This CT examination was performed using the following dose reduction techniques: Automated exposure control, adjustment of mA and/or kv according to the patient's size, and use of iterative reconstruction technique. FINDINGS: Both prior examinations are obtained before surgical intervention. The patient is noted to be status post partial resection for medial left apical mass. Postsurgical changes at the mediastinum along with moderate left pleural effusion are now identified. Small enhancing lesion in the left suprahilar mediastinum cannot definitively be excluded. Remainder of the bilateral lung barney are relatively clear with chronic changes noted. No evidence for new pulmonary nodule or mass. No pneumothorax. Tracheobronchial tree is relatively patent. Further evaluation of the mediastinum demonstrates stable relatively normal appearance to the thoracic aorta, pulmonary vasculature, and heart/pericardium. [id number] identified with tip in the SVC. Musculoskeletal structures intact and without acute osseous abnormality. Limited upper abdomen demonstrates normal bilateral adrenal glands and 1.5 cm left renal cyst. IMPRESSION: 1. This examination may represent baseline postsurgical evaluation as described above including suspected left-sided postsurgical changes and pleural effusion. Small enhancing nodular density at the left suprahilar mediastinum cannot definitively be excluded and may warrant short-term follow-up examination. <Electronically signed by Luis Berry > 06/10/21 [id number]
== END ==
LOC: M RAD 08:29
PROVIDERS: ATTEND Internal Medicine Pulmonary Disease
DX: C34.12 Malignant neoplasm of upper lobe, left bronchus or lung (principal)
CPT/HCPCS: 71260; Q9967

== ENCOUNTER → 2021-07-10 | Outpatient (REF) | payer BC ==
[~2021-07-10] MED LIST changes: +DEXA4TA PO; -ISOVUE-370 76% 100ML VIAL As Ordered ONE; +LIDO1CRE42 TOP; +ONDA8TAB10 PO; +PROC10TA4 PO
[2021-07-10 13:32] LABS: PROTHROMBIN TIME 13.6 SECONDS (12.7-14.5)
[2021-07-10 13:33] LABS: PARTIAL THROMBOPLASTIN TIME 29.1 SECONDS (25.9-37.0)
[2021-07-10 15:14] LABS: LDH LACTATE DEHYDROGENASE 178 U/L (87-241); TOTAL PROTEIN 7.7 GM/DL (6.4-8.2)
[2021-07-11 11:10] LABS: ALBUMIN 4.07 GM/DL (3.29-5.55); ALBUMIN % 52.9 % (55.8-66.1); ALPHA-1-GLOBULINS 0.38 GM/DL (0.17-0.41)
[2021-07-11 11:11] LABS: ALPHA-1-GLOBULIN % 4.9 % (2.9-4.9); ALPHA-2-GLOBULINS 0.96 GM/DL (0.42-0.99); ALPHA-2-GLOBULINS % 12.5 % (7.1-11.8); BETA-1-GLOBULINS 0.46 GM/DL (0.28-0.60); BETA-2-GLOBULINS 0.46 GM/DL (0.19-0.55); GAMMA GLOBULIN % 17.7 % (11.1-18.8); GAMMA GLOBULINS 1.36 GM/DL (0.65-1.58)
== END ==
LOC: M LAB REF 12:44
PROVIDERS: ATTEND Internal Medicine Pulmonary Disease
DX: Z01.812 Encounter for preprocedural laboratory examination (principal); C34.12 Malignant neoplasm of upper lobe, left bronchus or lung; J90 Pleural effusion, not elsewhere classified

== ENCOUNTER 2021-08-06 23:20 | Inpatient (IN) | payer BC ==
[~2021-08-06] VITALS: Ht 170.2 cm; Wt 86.3 kg
[~2021-08-06 23:20] MED LIST changes: -AMIO200T3 PO; +AMIO200T49 PO; +OMEP-173 PO; +ONDA-84 PO; -ONDA8TAB10 PO; -PROC10TA4 PO; +PROC10TA5 PO
[2021-08-06] MEDS ORDERED: NS 1,000 ML IV ONE (23:55)
[2021-08-07] VITALS (23 sets, daily range): BP systolic 69–145; BP diastolic 50–80
[2021-08-07] MEDS ORDERED: ACETAMINOPHEN TAB 650MG DOSE (2X325MG) PO ONE (00:15)
[2021-08-07 00:33] LABS: HEMATOCRIT 30.1 % (42.0-52.0); HEMOGLOBIN 10.6 g/dl (13.5-17.5); LYMPH # 0.2 10^3/uL (1.5-5.0); LYMPH % 17.6 % (24.0-44.0); MEAN CORPUSCULAR HEMOGLOBIN 32.8 pg (27.0-33.0); MEAN CORPUSCULAR HGB CONC 35.2 g/dl (32.0-36.5); MEAN CORPUSCULAR VOLUME 93.2 fl (80.0-96.0); MONO # 0.1 10^3/uL (0.0-0.8); MONO % 16.5 % (2.0-8.0); NEUTROPHILS % 36.5 % (36.0-66.0); RED BLOOD COUNT 3.23 10^6/uL (4.30-6.10)
[2021-08-07 00:52] LABS: NEUTROPHILS # 0.3 10^3/uL (1.5-8.5); WHITE BLOOD COUNT 0.9 10^3/uL (4.0-10.0)
[2021-08-07 00:53] LABS: PLATELET COUNT, AUTOMATED 95 10^3/uL (150-450)
[2021-08-07 01:01] LABS: ALBUMIN 2.8 GM/DL (3.2-5.2); ALT/SGPT 24 U/L (12-78); BILIRUBIN,DIRECT 0.5 MG/DL (0.0-0.2); BILIRUBIN,TOTAL 1.3 MG/DL (0.2-1.0); BLOOD UREA NITROGEN 18 MG/DL (7-18); CALCIUM LEVEL 8.5 MG/DL (8.5-10.1); CARBON DIOXIDE LEVEL 25 MEQ/L (21-32); CHLORIDE LEVEL 94 MEQ/L (98-107); CREATININE FOR GFR 1.26 MG/DL (0.70-1.30); GLOMERULAR FILTRATION RATE > 60.0 (>56); GLUCOSE, FASTING 115 MG/DL (70-100); LIPASE 25 U/L (73-393); POTASSIUM SERUM 4.2 MEQ/L (3.5-5.1); SODIUM LEVEL 126 MEQ/L (136-145); TOTAL PROTEIN 6.8 GM/DL (6.4-8.2)
[2021-08-07] MEDS ORDERED: CEFEPIME HCL 2 GM in D5W MINI-BAG PLUS 50 ML IV ONE (01:20)
[2021-08-07] MEDS ORDERED: ISOVUE-370 76% 100ML VIAL As Ordered ONE (01:31)
[2021-08-07 04:32] LABS: OSMOLALITY URINE 155 MOSM/KG (50-1400)
[2021-08-07 04:33] LABS: BLOOD UREA NITROGEN 16 MG/DL (7-18); CALCIUM LEVEL 7.6 MG/DL (8.5-10.1); CARBON DIOXIDE LEVEL 23 MEQ/L (21-32); CHLORIDE LEVEL 98 MEQ/L (98-107); CREATININE FOR GFR 1.05 MG/DL (0.70-1.30); GLOMERULAR FILTRATION RATE > 60.0 (>56); GLUCOSE, FASTING 101 MG/DL (70-100); POTASSIUM SERUM 4.1 MEQ/L (3.5-5.1); SODIUM LEVEL 130 MEQ/L (136-145); URIC ACID 3.7 MG/DL (3.5-7.2)
[2021-08-07 04:38] LABS: OSMOLALITY SERUM 263 MOSM/KG (275-295)
[2021-08-07] MEDS ORDERED: EMLA CREAM 5GM TUBE (LIDOCAINE/PRILOCAINE) TOP SCH (04:40)
[2021-08-07] MEDS ORDERED: PROCHLORPERAZINE 5 MG TAB (S0183) PO PRN (04:40)
[2021-08-07] MEDS ORDERED: ONDANSETRON 4 MG TAB PO PRN (04:40)
[2021-08-07] MEDS ORDERED: ALBUTEROL SULFATE 2.5 MG/0.5 ML INH NEB SOLN INH PRN (04:40)
[2021-08-07] MEDS ORDERED: DOCUSATE SODIUM 100MG CAPSULE PO PRN (04:40)
[2021-08-07 04:46] LABS: CREATININE,RANDOM URINE 29.4 MG/DL; SODIUM,RANDOM URINE < 10 MEQ/L
[2021-08-07] MEDS ORDERED: LORA-674 PO (04:53)
[2021-08-07] MEDS ORDERED: ACET-907 PO (04:53)
[2021-08-07] MEDS ORDERED: FLUT1BLS8 INH (04:53)
[2021-08-07] MEDS ORDERED: ALBU83IN INH (04:53)
[2021-08-07] MEDS ORDERED: DOCU100C16 PO (04:53)
[2021-08-07] MEDS ORDERED: FOLI1TAB11 PO (04:53)
[2021-08-07] MEDS ORDERED: HOME MED LIST COMPLETE! XX SCH (04:55)
[2021-08-07] MEDS ORDERED: NS 500 ML IV ONE (05:05)
[2021-08-07] MEDS ORDERED: VANCOMYCIN HCL 1,000 MG, VIAL MATE ADAPTER 1 EACH in NS 250 ML IV SCH (05:25)
[2021-08-07] MEDS ORDERED: VANCOMYCIN HCL 1,000 MG, VIAL MATE ADAPTER 1 EACH in NS 250 ML IV ONE (06:00)
[2021-08-07] MEDS: HEPARIN SOD (PORCINE) 5000UNITS/ML 1ML VIAL/SYRINGE SC SCH ×2 (06:10→14:00)
[2021-08-07] MEDS ORDERED: VANCOMYCIN HCL 750 MG, VIAL MATE ADAPTER 1 EACH in NS 250 ML IV ONE (07:00)
[2021-08-07] MEDS: TIOTROPIUM INHALER/CAPSULE (SPIRIVA) INH SCH (08:00)
[2021-08-07] MEDS ORDERED: ENTER DRUG NAME HERE (PATIENT'S OWN MED) INH SCH (09:00)
[2021-08-07] MEDS ORDERED: NS 1,000 ML IV SCH (09:05)
[2021-08-07 09:16] LABS: HEMOGLOBIN 9.5 g/dl (13.5-17.5); LYMPH # 0.1 10^3/uL (1.5-5.0); LYMPH % 19.1 % (24.0-44.0); MEAN CORPUSCULAR HEMOGLOBIN 33.3 pg (27.0-33.0); MEAN CORPUSCULAR HGB CONC 35.2 g/dl (32.0-36.5); MEAN CORPUSCULAR VOLUME 94.7 fl (80.0-96.0); MONO # 0.1 10^3/uL (0.0-0.8); MONO % 14.7 % (2.0-8.0); NEUTROPHILS # 0.4 10^3/uL (1.5-8.5); NEUTROPHILS % 54.4 % (36.0-66.0); PLATELET COUNT, AUTOMATED 72 10^3/uL (150-450); RED BLOOD COUNT 2.85 10^6/uL (4.30-6.10); WHITE BLOOD COUNT 0.7 10^3/uL (4.0-10.0)
[2021-08-07 09:48] LABS: ALBUMIN 2.2 GM/DL (3.2-5.2); ALT/SGPT 21 U/L (12-78); BLOOD UREA NITROGEN 13 MG/DL (7-18); CALCIUM LEVEL 7.9 MG/DL (8.5-10.1); CARBON DIOXIDE LEVEL 25 MEQ/L (21-32); CHLORIDE LEVEL 98 MEQ/L (98-107); CREATININE FOR GFR 1.05 MG/DL (0.70-1.30); GLOMERULAR FILTRATION RATE > 60.0 (>56); GLUCOSE, FASTING 111 MG/DL (70-100); SODIUM LEVEL 131 MEQ/L (136-145); TOTAL PROTEIN 5.8 GM/DL (6.4-8.2)
[2021-08-07] MEDS: buPROPion **SR TABLET** (ZYBAN) 150MG PO SCH ×2 (10:25→22:33)
[2021-08-07] MEDS: NICOTINE 14 MG/24 HR TRANSDERMAL TD SCH (10:25)
[2021-08-07] MEDS: FILGRASTIM 480 MCG/0.8 ML SYRINGE **SC ADMINISTRATION ONLY SC SCH (10:25)
[2021-08-07] MEDS: ASPIRIN 81MG ENTERIC TABLET PO SCH (10:26)
[2021-08-07] MEDS: FOLIC ACID 1 MG TAB PO SCH (10:26)
[2021-08-07] MEDS: ATORVASTATIN 20 MG TAB PO SCH (10:26)
[2021-08-07] MEDS: EZETIMIBE 10MG TABLET (ZETIA) PO SCH (10:26)
[2021-08-07] MEDS: LORATADINE 10 MG TAB PO SCH (10:27)
[2021-08-07] MEDS: OMEPRAZOLE 20MG CAP PO SCH (10:27)
[2021-08-07] MEDS: CEFEPIME HCL 2 GM in D5W MINI-BAG PLUS 50 ML IV SCH ×2 (10:44→18:00)
[2021-08-07] MEDS: ACETAMINOPHEN TAB 650MG DOSE (2X325MG) PO PRN ×2 (10:44→17:17)
[2021-08-07] MEDS: ADVAIR HFA 230/21MCG INHALER INH SCH ×2 (10:48→19:25)
[2021-08-07] MEDS ORDERED: NORCO, ANEXSIA 5/325MG TABLET (HYDROcodone/ACETAMINOPHEN) PO PRN (12:05)
[2021-08-07] MEDS ORDERED: LEVALBUTEROL 1.25 MG/0.5 ML CONCENTRATE NEB NEB PRN (12:05)
[2021-08-07] MEDS ORDERED: BISACODYL 10 MG SUPP PR PRN (12:05)
[2021-08-07] MEDS ORDERED: PERCOCET 5MG/325MG TAB PO PRN ×2 (12:05)
[2021-08-07 13:01] LABS: HEMATOCRIT 25.3 % (42.0-52.0); HEMOGLOBIN 8.9 g/dl (13.5-17.5); LYMPH # 0.1 10^3/uL (1.5-5.0); LYMPH % 20.9 % (24.0-44.0); MEAN CORPUSCULAR HEMOGLOBIN 33.2 pg (27.0-33.0); MEAN CORPUSCULAR HGB CONC 35.2 g/dl (32.0-36.5); MEAN CORPUSCULAR VOLUME 94.4 fl (80.0-96.0); MONO # 0.1 10^3/uL (0.0-0.8); MONO % 16.4 % (2.0-8.0); NEUTROPHILS # 0.3 10^3/uL (1.5-8.5); NEUTROPHILS % 46.3 % (36.0-66.0); PLATELET COUNT, AUTOMATED 69 10^3/uL (150-450); RED BLOOD COUNT 2.68 10^6/uL (4.30-6.10); WHITE BLOOD COUNT 0.7 10^3/uL (4.0-10.0)
[2021-08-07] MEDS: LEVALBUTEROL 1.25 MG/0.5 ML CONCENTRATE NEB NEB SCH ×2 (14:00→19:25)
[2021-08-07] MEDS ORDERED: LIDOCAINE 1% MDV 20ML VIAL As Ordered ONE (14:30)
[2021-08-07] MEDS: VANCOMYCIN HCL 750 MG, VIAL MATE ADAPTER 1 EACH in NS 250 ML IV SCH (14:33)
[2021-08-07 16:33] LABS: APPEARANCE, BODY FLUID CLEAR (CLEAR); PLEURAL FL COLOR YELLOW (COLORLESS); SOURCE, BODY FLUID PLEURAL
[2021-08-07 16:35] LABS: PH BODY FLUID 7.575 UNITS (NOT ESTABLISHED); SOURCE, BODY FLUID pH PLEURAL
[2021-08-07 17:13] LABS: AMYLASE, BODY FLUID 13 U/L (NOT ESTABLISHED); CHOLESTEROL, BODY FLUID 96 MG/DL (NOT ESTABLISHED); LDH, BODY FLUID 170 U/L (NOT ESTABLISHED); SOURCE, BODY FLUID ALBUMIN PLEURAL; SOURCE, BODY FLUID AMYLASE PLEURAL; SOURCE, BODY FLUID CHOL PLEURAL; SOURCE, BODY FLUID GLUCOSE PLEURAL; SOURCE, BODY FLUID LDH PLEURAL; SOURCE, BODY FLUID TOT PROTEIN PLEURAL; SOURCE, BODY FLUID TRIG PLEURAL; TOTAL PROTEIN, BODY FLUID 4.4 G/DL (NOT ESTABLISHED); TRIGLYCERIDE, BODY FLUID 43 MG/DL (NOT ESTABLISHED)
[2021-08-07] MEDS: KETOROLAC 30 MG/ML 1ML VIAL IV SCH ×2 (17:15→20:00)
[2021-08-07] MEDS: VANCOMYCIN HCL 500 MG in D5W MINI-BAG PLUS 100 ML IV SCH (17:16)
[2021-08-07] MEDS ORDERED: NS 1,000 ML IV ONE ×2 (18:15→19:55)
[2021-08-07] MEDS ORDERED: DIGOXIN INJ 0.5 MG/2 ML AMP (J1160) IV STA (18:22)
[2021-08-07] MEDS ORDERED: SODIUM CHLORIDE 0.9% 1000ML IV STA (18:24)
[2021-08-07 19:11] LABS: HEMATOCRIT 23.4 % (42.0-52.0); LYMPH # 0.1 10^3/uL (1.5-5.0); LYMPH % 16.4 % (24.0-44.0); MEAN CORPUSCULAR HEMOGLOBIN 32.8 pg (27.0-33.0); MEAN CORPUSCULAR HGB CONC 34.2 g/dl (32.0-36.5); MEAN CORPUSCULAR VOLUME 95.9 fl (80.0-96.0); MONO # 0.1 10^3/uL (0.0-0.8); MONO % 20.9 % (2.0-8.0); NEUTROPHILS % 61.2 % (36.0-66.0); RED BLOOD COUNT 2.44 10^6/uL (4.30-6.10)
[2021-08-07 19:14] LABS: NEUTROPHILS # 0.4 10^3/uL (1.5-8.5); PLATELET COUNT, AUTOMATED 57 10^3/uL (150-450); WHITE BLOOD COUNT 0.7 10^3/uL (4.0-10.0)
[2021-08-07 19:42] LABS: ALBUMIN 1.9 GM/DL (3.2-5.2); ALT/SGPT 17 U/L (12-78); BILIRUBIN,TOTAL 0.7 MG/DL (0.2-1.0); BLOOD UREA NITROGEN 14 MG/DL (7-18); CALCIUM LEVEL 7.2 MG/DL (8.5-10.1); CARBON DIOXIDE LEVEL 22 MEQ/L (21-32); CHLORIDE LEVEL 102 MEQ/L (98-107); CREATININE FOR GFR 1.08 MG/DL (0.70-1.30); GLOMERULAR FILTRATION RATE > 60.0 (>56); GLUCOSE, FASTING 134 MG/DL (70-100); MAGNESIUM LEVEL 1.7 MG/DL (1.8-2.4); POTASSIUM SERUM 3.5 MEQ/L (3.5-5.1); SODIUM LEVEL 132 MEQ/L (136-145); TOTAL PROTEIN 5.1 GM/DL (6.4-8.2)
[2021-08-07] MEDS ORDERED: MAG SULF 1GM/100ML (MAG RUN) 1 GM in IV 1 EA IV ONE (19:55)
[2021-08-07 22:52] LABS: HEMATOCRIT 22.5 % (42.0-52.0); HEMOGLOBIN 7.6 g/dl (13.5-17.5)
[2021-08-07 23:35] LABS: BLOOD UREA NITROGEN 12 MG/DL (7-18); CARBON DIOXIDE LEVEL 22 MEQ/L (21-32); CHLORIDE LEVEL 106 MEQ/L (98-107); CREATININE FOR GFR 1.02 MG/DL (0.70-1.30); GLOMERULAR FILTRATION RATE > 60.0 (>56); GLUCOSE, FASTING 160 MG/DL (70-100); POTASSIUM SERUM 3.6 MEQ/L (3.5-5.1); SODIUM LEVEL 135 MEQ/L (136-145)
[2021-08-08] VITALS (28 sets, daily range): BP systolic 89–167; BP diastolic 50–97
[2021-08-08] MEDS: LEVALBUTEROL 1.25 MG/0.5 ML CONCENTRATE NEB NEB SCH ×4 (01:04→19:50)
[2021-08-08] MEDS: KETOROLAC 30 MG/ML 1ML VIAL IV SCH ×4 (01:23→20:15)
[2021-08-08] MEDS: VANCOMYCIN HCL 750 MG, VIAL MATE ADAPTER 1 EACH in NS 250 ML IV SCH ×2 (01:24→14:09)
[2021-08-08] MEDS: CEFEPIME HCL 2 GM in D5W MINI-BAG PLUS 50 ML IV SCH ×3 (01:24→17:27)
[2021-08-08] MEDS: VANCOMYCIN HCL 500 MG in D5W MINI-BAG PLUS 100 ML IV SCH ×2 (03:37→15:26)
[2021-08-08 04:09] LABS: LYMPH # 0.1 10^3/uL (1.5-5.0); LYMPH % 16.7 % (24.0-44.0); MEAN CORPUSCULAR HEMOGLOBIN 32.4 pg (27.0-33.0); MEAN CORPUSCULAR HGB CONC 33.7 g/dl (32.0-36.5); MEAN CORPUSCULAR VOLUME 96.3 fl (80.0-96.0); MONO # 0.1 10^3/uL (0.0-0.8); MONO % 18.5 % (2.0-8.0); NEUTROPHILS % 62.9 % (36.0-66.0); RED BLOOD COUNT 2.16 10^6/uL (4.30-6.10)
[2021-08-08 04:10] LABS: HEMATOCRIT 20.8 % (42.0-52.0)
[2021-08-08 04:11] LABS: NEUTROPHILS # 0.3 10^3/uL (1.5-8.5); PLATELET COUNT, AUTOMATED 53 10^3/uL (150-450); WHITE BLOOD COUNT 0.5 10^3/uL (4.0-10.0)
[2021-08-08 05:20] LABS: ALBUMIN 1.5 GM/DL (3.2-5.2); ALT/SGPT 15 U/L (12-78); BILIRUBIN,TOTAL 0.6 MG/DL (0.2-1.0); BLOOD UREA NITROGEN 12 MG/DL (7-18); CALCIUM LEVEL 6.6 MG/DL (8.5-10.1); CARBON DIOXIDE LEVEL 21 MEQ/L (21-32); CHLORIDE LEVEL 108 MEQ/L (98-107); GLOMERULAR FILTRATION RATE > 60.0 (>56); GLUCOSE, FASTING 106 MG/DL (70-100); POTASSIUM SERUM 3.5 MEQ/L (3.5-5.1); SODIUM LEVEL 137 MEQ/L (136-145); TOTAL PROTEIN 4.5 GM/DL (6.4-8.2)
[2021-08-08] MEDS: ADVAIR HFA 230/21MCG INHALER INH SCH ×2 (07:29→19:50)
[2021-08-08] MEDS: TIOTROPIUM INHALER/CAPSULE (SPIRIVA) INH SCH (07:29)
[2021-08-08] MEDS: MOM 30ML SUSPENSION UDC PO SCH (08:25)
[2021-08-08] MEDS: NICOTINE 14 MG/24 HR TRANSDERMAL TD SCH (08:27)
[2021-08-08] MEDS: EZETIMIBE 10MG TABLET (ZETIA) PO SCH (08:28)
[2021-08-08] MEDS: FOLIC ACID 1 MG TAB PO SCH (08:28)
[2021-08-08] MEDS: ATORVASTATIN 20 MG TAB PO SCH (08:28)
[2021-08-08] MEDS: OMEPRAZOLE 20MG CAP PO SCH (08:28)
[2021-08-08] MEDS: buPROPion **SR TABLET** (ZYBAN) 150MG PO SCH ×2 (08:28→20:15)
[2021-08-08] MEDS: ASPIRIN 81MG ENTERIC TABLET PO SCH (08:28)
[2021-08-08] MEDS: LORATADINE 10 MG TAB PO SCH (08:29)
[2021-08-08 08:42] LABS: EOS % 1.5 % (0.0-3.0); HEMATOCRIT 22.9 % (42.0-52.0); HEMOGLOBIN 7.8 g/dl (13.5-17.5); LYMPH # 0.1 10^3/uL (1.5-5.0); LYMPH % 19.1 % (24.0-44.0); MEAN CORPUSCULAR HEMOGLOBIN 32.8 pg (27.0-33.0); MEAN CORPUSCULAR HGB CONC 34.1 g/dl (32.0-36.5); MEAN CORPUSCULAR VOLUME 96.2 fl (80.0-96.0); MONO # 0.1 10^3/uL (0.0-0.8); MONO % 14.7 % (2.0-8.0); NEUTROPHILS % 61.8 % (36.0-66.0); RED BLOOD COUNT 2.38 10^6/uL (4.30-6.10)
[2021-08-08 08:44] LABS: NEUTROPHILS # 0.4 10^3/uL (1.5-8.5); PLATELET COUNT, AUTOMATED 48 10^3/uL (150-450); WHITE BLOOD COUNT 0.7 10^3/uL (4.0-10.0)
[2021-08-08] MEDS ORDERED: PANTOPRAZOLE 40MG TAB (PROTONIX) PO SCH (09:00)
[2021-08-08] MEDS: SODIUM CHLORIDE 0.9% INJ 10 ML SYR IV SCH (09:00)
[2021-08-08] MEDS: FILGRASTIM 480 MCG/0.8 ML SYRINGE **SC ADMINISTRATION ONLY SC SCH (09:25)
[2021-08-08] MEDS ORDERED: DIGOXIN INJ 0.5 MG/2 ML AMP (J1160) IV ONE (12:00)
[2021-08-08] MEDS ORDERED: DARBEPOETIN 100 MCG/0.5 ML *NON-DIALYSIS* SYRINGE (J0881) SC ONE (15:00)
[2021-08-08] MEDS: DIGOXIN INJ 0.5 MG/2 ML AMP (J1160) IV SCH ×2 (17:27→23:46)
[2021-08-08] MEDS: ACETAMINOPHEN TAB 650MG DOSE (2X325MG) PO PRN (18:28)
[2021-08-09] VITALS (15 sets, daily range): BP systolic 121–162; BP diastolic 63–89
[2021-08-09] MEDS: LEVALBUTEROL 1.25 MG/0.5 ML CONCENTRATE NEB NEB SCH ×4 (01:37→19:32)
[2021-08-09] MEDS: VANCOMYCIN HCL 750 MG, VIAL MATE ADAPTER 1 EACH in NS 250 ML IV SCH ×2 (01:42→14:22)
[2021-08-09] MEDS: CEFEPIME HCL 2 GM in D5W MINI-BAG PLUS 50 ML IV SCH ×3 (01:44→18:38)
[2021-08-09] MEDS: KETOROLAC 30 MG/ML 1ML VIAL IV SCH ×4 (01:44→20:10)
[2021-08-09] MEDS: VANCOMYCIN HCL 500 MG in D5W MINI-BAG PLUS 100 ML IV SCH ×2 (02:55→14:22)
[2021-08-09] MEDS: ACETAMINOPHEN TAB 650MG DOSE (2X325MG) PO PRN ×2 (04:07→16:54)
[2021-08-09 04:24] LABS: HEMATOCRIT 22.6 % (42.0-52.0); HEMOGLOBIN 7.8 g/dl (13.5-17.5); MEAN CORPUSCULAR HEMOGLOBIN 32.4 pg (27.0-33.0); MEAN CORPUSCULAR HGB CONC 34.5 g/dl (32.0-36.5); MEAN CORPUSCULAR VOLUME 93.8 fl (80.0-96.0); RED BLOOD COUNT 2.41 10^6/uL (4.30-6.10); WHITE BLOOD COUNT 1.7 10^3/uL (4.0-10.0)
[2021-08-09 04:37] LABS: PLATELET COUNT, AUTOMATED 50 10^3/uL (150-450)
[2021-08-09 04:48] LABS: ALBUMIN 1.6 GM/DL (3.2-5.2); ALT/SGPT 18 U/L (12-78); BILIRUBIN,TOTAL 0.7 MG/DL (0.2-1.0); BLOOD UREA NITROGEN 11 MG/DL (7-18); CALCIUM LEVEL 7.5 MG/DL (8.5-10.1); CARBON DIOXIDE LEVEL 20 MEQ/L (21-32); CHLORIDE LEVEL 107 MEQ/L (98-107); CREATININE FOR GFR 0.83 MG/DL (0.70-1.30); GLOMERULAR FILTRATION RATE > 60.0 (>56); GLUCOSE, FASTING 110 MG/DL (70-100); POTASSIUM SERUM 3.6 MEQ/L (3.5-5.1); SODIUM LEVEL 134 MEQ/L (136-145); TOTAL PROTEIN 4.9 GM/DL (6.4-8.2)
[2021-08-09 05:13] LABS: ANISOCYTOSIS 1+; ATYPICAL LYMPH 2 % (0-5); BASOPHILS 2 % (0-1); DOHLE BODIES 1+; LYMPHOCYTES 13 % (16-44); MONOCYTES 12 % (0-5); NEUTROPHILS 63 % (28-66); PLATELET ESTIMATE MARKED DECREASE (NORMAL)
[2021-08-09 05:14] LABS: TOXIC VACUOLATION 1+
[2021-08-09] MEDS: ADVAIR HFA 230/21MCG INHALER INH SCH ×2 (07:25→19:32)
[2021-08-09] MEDS: TIOTROPIUM INHALER/CAPSULE (SPIRIVA) INH SCH (07:26)
[2021-08-09] MEDS: MOM 30ML SUSPENSION UDC PO SCH (09:00)
[2021-08-09] MEDS: EZETIMIBE 10MG TABLET (ZETIA) PO SCH (09:45)
[2021-08-09] MEDS: ATORVASTATIN 20 MG TAB PO SCH (09:45)
[2021-08-09] MEDS: buPROPion **SR TABLET** (ZYBAN) 150MG PO SCH ×2 (09:45→20:10)
[2021-08-09] MEDS: ASPIRIN 81MG ENTERIC TABLET PO SCH (09:45)
[2021-08-09] MEDS: OMEPRAZOLE 20MG CAP PO SCH (09:46)
[2021-08-09] MEDS: LORATADINE 10 MG TAB PO SCH (09:46)
[2021-08-09] MEDS: DIGOXIN 0.125 MG TAB PO SCH (09:46)
[2021-08-09] MEDS: FOLIC ACID 1 MG TAB PO SCH (09:46)
[2021-08-09] MEDS: NICOTINE 14 MG/24 HR TRANSDERMAL TD SCH (09:47)
[2021-08-09] MEDS: SODIUM CHLORIDE 0.9% INJ 10 ML SYR IV SCH (09:47)
[2021-08-09] MEDS: FILGRASTIM 480 MCG/0.8 ML SYRINGE **SC ADMINISTRATION ONLY SC SCH (12:21)
[2021-08-09] MEDS: LORazepam 2 MG TAB PO PRN (18:51)
[2021-08-10] VITALS (39 sets, daily range): BP systolic 113–171; BP diastolic 57–99
[2021-08-10] MEDS: CEFEPIME HCL 2 GM in D5W MINI-BAG PLUS 50 ML IV SCH ×3 (01:08→17:44)
[2021-08-10] MEDS: KETOROLAC 30 MG/ML 1ML VIAL IV SCH ×3 (01:08→13:52)
[2021-08-10] MEDS: LORazepam 2 MG TAB PO PRN ×2 (01:09→13:15)
[2021-08-10] MEDS: LEVALBUTEROL 1.25 MG/0.5 ML CONCENTRATE NEB NEB SCH ×4 (01:26→19:08)
[2021-08-10] MEDS: VANCOMYCIN HCL 750 MG, VIAL MATE ADAPTER 1 EACH in NS 250 ML IV SCH ×2 (02:44→13:52)
[2021-08-10] MEDS: VANCOMYCIN HCL 500 MG in D5W MINI-BAG PLUS 100 ML IV SCH ×2 (03:57→15:38)
[2021-08-10 06:00] LABS: HEMATOCRIT 27.4 % (42.0-52.0); HEMOGLOBIN 9.3 g/dl (13.5-17.5); MEAN CORPUSCULAR HEMOGLOBIN 32.3 pg (27.0-33.0); MEAN CORPUSCULAR HGB CONC 33.9 g/dl (32.0-36.5); MEAN CORPUSCULAR VOLUME 95.1 fl (80.0-96.0); RED BLOOD COUNT 2.88 10^6/uL (4.30-6.10); WHITE BLOOD COUNT 4.9 10^3/uL (4.0-10.0)
[2021-08-10 06:11] LABS: PLATELET COUNT, AUTOMATED 60 10^3/uL (150-450)
[2021-08-10 06:27] LABS: ALBUMIN 1.7 GM/DL (3.2-5.2); ALT/SGPT 125 U/L (12-78); BILIRUBIN,TOTAL 0.6 MG/DL (0.2-1.0); BLOOD UREA NITROGEN 10 MG/DL (7-18); CALCIUM LEVEL 8.4 MG/DL (8.5-10.1); CARBON DIOXIDE LEVEL 21 MEQ/L (21-32); CHLORIDE LEVEL 108 MEQ/L (98-107); CREATININE FOR GFR 0.89 MG/DL (0.70-1.30); GLOMERULAR FILTRATION RATE > 60.0 (>56); GLUCOSE, FASTING 105 MG/DL (70-100); POTASSIUM SERUM 3.8 MEQ/L (3.5-5.1); SODIUM LEVEL 137 MEQ/L (136-145); TOTAL PROTEIN 6.1 GM/DL (6.4-8.2)
[2021-08-10 07:18] LABS: LYMPHOCYTES 11 % (16-44); MONOCYTES 2 % (0-5); NEUTROPHILS 73 % (28-66)
[2021-08-10] MEDS: ADVAIR HFA 230/21MCG INHALER INH SCH ×2 (07:23→19:08)
[2021-08-10] MEDS: TIOTROPIUM INHALER/CAPSULE (SPIRIVA) INH SCH (07:23)
[2021-08-10 07:24] LABS: ANISOCYTOSIS 1+; PLATELET ESTIMATE DECREASED (NORMAL); TOXIC GRANULATION 1+
[2021-08-10] MEDS: OXAZEPAM 15 MG CAP PO SCH ×3 (08:57→18:00)
[2021-08-10] MEDS: EZETIMIBE 10MG TABLET (ZETIA) PO SCH (08:58)
[2021-08-10] MEDS: DIGOXIN 0.125 MG TAB PO SCH (08:58)
[2021-08-10] MEDS: LORATADINE 10 MG TAB PO SCH (08:58)
[2021-08-10] MEDS: ATORVASTATIN 20 MG TAB PO SCH (08:59)
[2021-08-10] MEDS: FOLIC ACID 1 MG TAB PO SCH (08:59)
[2021-08-10] MEDS: NICOTINE 14 MG/24 HR TRANSDERMAL TD SCH (08:59)
[2021-08-10] MEDS: buPROPion **SR TABLET** (ZYBAN) 150MG PO SCH ×2 (08:59→21:00)
[2021-08-10] MEDS: OMEPRAZOLE 20MG CAP PO SCH (08:59)
[2021-08-10] MEDS: ASPIRIN 81MG ENTERIC TABLET PO SCH (08:59)
[2021-08-10] MEDS: SODIUM CHLORIDE 0.9% INJ 10 ML SYR IV SCH (09:00)
[2021-08-10] MEDS: MOM 30ML SUSPENSION UDC PO SCH (09:00)
[2021-08-10] MEDS ORDERED: POTASSIUM CHLORIDE 10MEQ SR TABLET PO ONE (12:00)
[2021-08-10] MEDS ORDERED: FUROSEMIDE 40MG/4ML VIAL (J1940) IV ONE (12:00)
[2021-08-10] MEDS: FILGRASTIM 480 MCG/0.8 ML SYRINGE **SC ADMINISTRATION ONLY SC SCH (12:31)
[2021-08-10] MEDS: METOPROLOL 5 MG/5 ML VIAL IV SCH ×3 (13:27→13:52)
[2021-08-10] MEDS ORDERED: METOPROLOL TART 25 MG TABLET PO ONE (13:40)
[2021-08-10] MEDS ORDERED: LORazepam 2 MG/ML VIAL IV STA ×5 (13:58→21:32)
[2021-08-10] MEDS ORDERED: diazePAM 10MG/2ML SYRINGE (J3360 PER 5MG) IV ONE (14:00)
[2021-08-10] MEDS ORDERED: LORazepam 2 MG/ML VIAL As Ordered ONE ×4 (14:06→18:01)
[2021-08-10 15:37] LABS: INR 1.03; PROTHROMBIN TIME 13.9 SECONDS (12.7-14.5)
[2021-08-10 15:48] LABS: CK-MB VALUE MASS 1.3 NG/ML (<3.6); MB/CK RELATIVE INDEX 2.24 (< OR =4)
[2021-08-10] MEDS ORDERED: chlordiazePOXIDE 25 MG CAP PO SCH (16:00)
[2021-08-10] MEDS ORDERED: MULTIVITAMIN -ADULT INJECTION 10 ML, THIAMINE INJection 100 MG, FOLIC ACID 1 MG in NS 1... IV ONE (16:00)
[2021-08-10 16:09] LABS: ALBUMIN 1.9 GM/DL (3.2-5.2); ALT/SGPT 156 U/L (12-78); BILIRUBIN,TOTAL 0.8 MG/DL (0.2-1.0); BLOOD UREA NITROGEN 9 MG/DL (7-18); CALCIUM LEVEL 8.4 MG/DL (8.5-10.1); CARBON DIOXIDE LEVEL 23 MEQ/L (21-32); CHLORIDE LEVEL 105 MEQ/L (98-107); CREATININE FOR GFR 0.87 MG/DL (0.70-1.30); GLOMERULAR FILTRATION RATE > 60.0 (>56); GLUCOSE, FASTING 112 MG/DL (70-100); POTASSIUM SERUM 3.8 MEQ/L (3.5-5.1); SODIUM LEVEL 136 MEQ/L (136-145); TOTAL PROTEIN 5.7 GM/DL (6.4-8.2)
[2021-08-10] MEDS ORDERED: HEPARIN SOD (PORCINE) 5000UNITS/ML 1ML VIAL/SYRINGE IV ONE (17:20)
[2021-08-10] MEDS ORDERED: HEPARIN SOD (PORCINE) 5000UNITS/ML 1ML VIAL/SYRINGE IV PRN (17:20)
[2021-08-10] MEDS: METOPROLOL TART 25 MG TABLET PO SCH (17:44)
[2021-08-10] MEDS: HEPARIN DRIP 25,000 UNITS in IV 1 EA IV SCH (18:07)
[2021-08-10] MEDS: LORazepam 2 MG/ML VIAL IV PRN ×3 (19:26→22:58)
[2021-08-10] MEDS ORDERED: MORPHINE 2 MG/ML 1ML VIAL (J2270) IV ONE (21:35)
[2021-08-11] VITALS (31 sets, daily range): BP systolic 127–160; BP diastolic 63–100
[2021-08-11] MEDS: CEFEPIME HCL 2 GM in D5W MINI-BAG PLUS 50 ML IV SCH ×3 (01:29→17:29)
[2021-08-11] MEDS: LEVALBUTEROL 1.25 MG/0.5 ML CONCENTRATE NEB NEB SCH ×5 (02:00→23:50)
[2021-08-11] MEDS: VANCOMYCIN HCL 750 MG, VIAL MATE ADAPTER 1 EACH in NS 250 ML IV SCH (02:17)
[2021-08-11] MEDS: VANCOMYCIN HCL 500 MG in D5W MINI-BAG PLUS 100 ML IV SCH (03:40)
[2021-08-11] MEDS: LORazepam 2 MG/ML VIAL IV PRN (03:40)
[2021-08-11 05:43] LABS: HEMATOCRIT 28.4 % (42.0-52.0); HEMOGLOBIN 9.6 g/dl (13.5-17.5); MEAN CORPUSCULAR HEMOGLOBIN 31.9 pg (27.0-33.0); MEAN CORPUSCULAR HGB CONC 33.8 g/dl (32.0-36.5); MEAN CORPUSCULAR VOLUME 94.4 fl (80.0-96.0); RED BLOOD COUNT 3.01 10^6/uL (4.30-6.10); WHITE BLOOD COUNT 14.1 10^3/uL (4.0-10.0)
[2021-08-11 05:50] LABS: PLATELET COUNT, AUTOMATED 85 10^3/uL (150-450)
[2021-08-11] MEDS: OXAZEPAM 15 MG CAP PO SCH ×4 (06:00→17:27)
[2021-08-11] MEDS ORDERED: OXAZEPAM 15 MG CAP PO SCH (06:00)
[2021-08-11] MEDS: METOPROLOL TART 25 MG TABLET PO SCH ×4 (06:00→17:28)
[2021-08-11 06:16] LABS: LYMPHOCYTES 7 % (16-44); MONOCYTES 10 % (0-5); NEUTROPHILS 75 % (28-66); NUCLEATED RED BLOOD CELL 1 % (0-0)
[2021-08-11 06:17] LABS: PLATELET ESTIMATE DECREASED (NORMAL)
[2021-08-11 06:36] LABS: ALBUMIN 1.7 GM/DL (3.2-5.2); ALT/SGPT 136 U/L (12-78); BILIRUBIN,TOTAL 0.7 MG/DL (0.2-1.0); BLOOD UREA NITROGEN 10 MG/DL (7-18); CARBON DIOXIDE LEVEL 23 MEQ/L (21-32); CHLORIDE LEVEL 108 MEQ/L (98-107); CREATININE FOR GFR 0.78 MG/DL (0.70-1.30); GLOMERULAR FILTRATION RATE > 60.0 (>56); GLUCOSE, FASTING 81 MG/DL (70-100); POTASSIUM SERUM 3.6 MEQ/L (3.5-5.1); SODIUM LEVEL 139 MEQ/L (136-145); TOTAL PROTEIN 5.4 GM/DL (6.4-8.2)
[2021-08-11] MEDS ORDERED: LORazepam 2 MG/ML VIAL IV PRN (08:35)
[2021-08-11] MEDS: ADVAIR HFA 230/21MCG INHALER INH SCH ×2 (08:45→19:57)
[2021-08-11] MEDS: TIOTROPIUM INHALER/CAPSULE (SPIRIVA) INH SCH (08:45)
[2021-08-11 08:48] LABS: MAGNESIUM LEVEL 1.9 MG/DL (1.8-2.4)
[2021-08-11] MEDS: MOM 30ML SUSPENSION UDC PO SCH (09:00)
[2021-08-11] MEDS ORDERED: OXAZEPAM 15 MG CAP PO ONE (09:00)
[2021-08-11] MEDS: DIGOXIN 0.125 MG TAB PO SCH (09:15)
[2021-08-11] MEDS: LORATADINE 10 MG TAB PO SCH (10:26)
[2021-08-11] MEDS: ATORVASTATIN 20 MG TAB PO SCH (10:27)
[2021-08-11] MEDS: ASPIRIN 81MG ENTERIC TABLET PO SCH (10:28)
[2021-08-11] MEDS: EZETIMIBE 10MG TABLET (ZETIA) PO SCH (10:28)
[2021-08-11] MEDS: FOLIC ACID 1 MG TAB PO SCH (10:28)
[2021-08-11] MEDS: buPROPion **SR TABLET** (ZYBAN) 150MG PO SCH ×2 (10:28→20:37)
[2021-08-11] MEDS: LORazepam 2 MG TAB PO PRN ×3 (10:28→20:37)
[2021-08-11] MEDS: OMEPRAZOLE 20MG CAP PO SCH (10:28)
[2021-08-11] MEDS: NYSTATIN 500,000 U/5 ML SUSP UDC SS SCH ×4 (10:29→20:37)
[2021-08-11] MEDS: NICOTINE 14 MG/24 HR TRANSDERMAL TD SCH (10:29)
[2021-08-11] MEDS: HEPARIN DRIP 25,000 UNITS in IV 1 EA IV SCH (10:33)
[2021-08-11] MEDS ORDERED: chlordiazePOXIDE 25 MG CAP PO SCH (18:00)
[2021-08-12] VITALS (13 sets, daily range): BP systolic 107–142; BP diastolic 58–81
[2021-08-12] MEDS: OXAZEPAM 15 MG CAP PO SCH ×3 (00:11→11:52)
[2021-08-12] MEDS: LORazepam 2 MG TAB PO PRN ×2 (00:11→04:04)
[2021-08-12 00:21] LABS: ABG BASE EXCESS -0.7 (-2.0-2.0); ABG HCO3 22.8 MEQ/L (22.0-26.0); ABG O2 SATURATION 97.1 % (95.0-99.0); ABG PARTIAL PRESSURE CO2 33.2 mmHg (35.0-45.0); ABG PARTIAL PRESSURE O2 99.2 mmHg (75.0-100.0); ABG STANDARD HCO3 23.9 MEQ/L (22.0-26.0); ABG TOTAL CO2 23.8 MEQ/L (22.0-29.0); ABG pH (ARTERIAL) 7.454 UNITS (7.350-7.450)
[2021-08-12] MEDS ORDERED: VANCOMYCIN HCL 1,000 MG, VIAL MATE ADAPTER 1 EACH in NS 250 ML IV ONE (00:40)
[2021-08-12] MEDS: guaiFENesin ER 600 MG TAB PO SCH ×3 (00:51→20:00)
[2021-08-12] MEDS: CEFEPIME HCL 2 GM in D5W MINI-BAG PLUS 50 ML IV SCH ×3 (02:12→17:43)
[2021-08-12] MEDS: HEPARIN DRIP 25,000 UNITS in IV 1 EA IV SCH (02:44)
[2021-08-12] MEDS: VANCOMYCIN HCL 1,000 MG, VIAL MATE ADAPTER 1 EACH in NS 250 ML IV SCH ×3 (03:33→19:40)
[2021-08-12] MEDS: METOPROLOL TART 25 MG TABLET PO SCH ×5 (05:44→23:55)
[2021-08-12 05:57] LABS: HEMATOCRIT 29.3 % (42.0-52.0); HEMOGLOBIN 9.9 g/dl (13.5-17.5); MEAN CORPUSCULAR HGB CONC 33.8 g/dl (32.0-36.5); MEAN CORPUSCULAR VOLUME 94.8 fl (80.0-96.0); PLATELET COUNT, AUTOMATED 114 10^3/uL (150-450); RED BLOOD COUNT 3.09 10^6/uL (4.30-6.10); WHITE BLOOD COUNT 14.4 10^3/uL (4.0-10.0)
[2021-08-12 06:28] LABS: ALBUMIN 1.7 GM/DL (3.2-5.2); ALT/SGPT 103 U/L (12-78); BILIRUBIN,TOTAL 0.9 MG/DL (0.2-1.0); BLOOD UREA NITROGEN 9 MG/DL (7-18); CALCIUM LEVEL 8.6 MG/DL (8.5-10.1); CARBON DIOXIDE LEVEL 25 MEQ/L (21-32); CHLORIDE LEVEL 104 MEQ/L (98-107); CREATININE FOR GFR 0.75 MG/DL (0.70-1.30); GLOMERULAR FILTRATION RATE > 60.0 (>56); GLUCOSE, FASTING 102 MG/DL (70-100); MAGNESIUM LEVEL 2.1 MG/DL (1.8-2.4); POTASSIUM SERUM 3.5 MEQ/L (3.5-5.1); SODIUM LEVEL 137 MEQ/L (136-145); TOTAL PROTEIN 6.5 GM/DL (6.4-8.2)
[2021-08-12 06:59] LABS: ANISOCYTOSIS 1+; ATYPICAL LYMPH 1 % (0-5); LYMPHOCYTES 8 % (16-44); METAMYELOCYTES 2 % (0-0); MONOCYTES 6 % (0-5); NEUTROPHILS 81 % (28-66); PLATELET ESTIMATE DECREASED (NORMAL)
[2021-08-12] MEDS: LEVALBUTEROL 1.25 MG/0.5 ML CONCENTRATE NEB NEB SCH ×3 (08:00→20:00)
[2021-08-12] MEDS: buPROPion **SR TABLET** (ZYBAN) 150MG PO SCH ×2 (08:21→20:00)
[2021-08-12] MEDS: OMEPRAZOLE 20MG CAP PO SCH (08:21)
[2021-08-12] MEDS: ASPIRIN 81MG ENTERIC TABLET PO SCH (08:21)
[2021-08-12] MEDS: ACETAMINOPHEN TAB 650MG DOSE (2X325MG) PO PRN ×2 (08:22→09:35)
[2021-08-12] MEDS: FOLIC ACID 1 MG TAB PO SCH (08:22)
[2021-08-12] MEDS: ATORVASTATIN 20 MG TAB PO SCH (08:22)
[2021-08-12] MEDS: LORATADINE 10 MG TAB PO SCH (08:23)
[2021-08-12] MEDS: EZETIMIBE 10MG TABLET (ZETIA) PO SCH (08:23)
[2021-08-12] MEDS: DIGOXIN 0.125 MG TAB PO SCH (08:23)
[2021-08-12] MEDS: NICOTINE 14 MG/24 HR TRANSDERMAL TD SCH (08:24)
[2021-08-12] MEDS: MOM 30ML SUSPENSION UDC PO SCH (08:25)
[2021-08-12] MEDS: NYSTATIN 500,000 U/5 ML SUSP UDC SS SCH ×4 (08:25→20:00)
[2021-08-12] MEDS: ADVAIR HFA 230/21MCG INHALER INH SCH ×2 (08:53→20:28)
[2021-08-12] MEDS: TIOTROPIUM INHALER/CAPSULE (SPIRIVA) INH SCH (08:53)
[2021-08-12] MEDS ORDERED: LORazepam 2 MG/ML VIAL IV PRN (12:30)
[2021-08-12] MEDS ORDERED: chlordiazePOXIDE 25 MG CAP PO SCH (16:00)
[2021-08-12] MEDS: APIXABAN 5 MG TAB (ELIQUIS) PO SCH (20:00)
[2021-08-13] VITALS (10 sets, daily range): BP systolic 106–152; BP diastolic 60–80
[2021-08-13] MEDS: CEFEPIME HCL 2 GM in D5W MINI-BAG PLUS 50 ML IV SCH (01:01)
[2021-08-13] MEDS: LEVALBUTEROL 1.25 MG/0.5 ML CONCENTRATE NEB NEB SCH ×4 (01:33→23:23)
[2021-08-13] MEDS: VANCOMYCIN HCL 1,000 MG, VIAL MATE ADAPTER 1 EACH in NS 250 ML IV SCH (03:16)
[2021-08-13] MEDS: METOPROLOL TART 25 MG TABLET PO SCH ×3 (05:12→18:00)
[2021-08-13 05:52] LABS: HEMATOCRIT 28.7 % (42.0-52.0); HEMOGLOBIN 9.5 g/dl (13.5-17.5); MEAN CORPUSCULAR HEMOGLOBIN 31.9 pg (27.0-33.0); MEAN CORPUSCULAR HGB CONC 33.1 g/dl (32.0-36.5); MEAN CORPUSCULAR VOLUME 96.3 fl (80.0-96.0); PLATELET COUNT, AUTOMATED 147 10^3/uL (150-450); RED BLOOD COUNT 2.98 10^6/uL (4.30-6.10); WHITE BLOOD COUNT 12.2 10^3/uL (4.0-10.0)
[2021-08-13 06:16] LABS: ALBUMIN 1.6 GM/DL (3.2-5.2); ALT/SGPT 79 U/L (12-78); BILIRUBIN,TOTAL 0.5 MG/DL (0.2-1.0); BLOOD UREA NITROGEN 10 MG/DL (7-18); CALCIUM LEVEL 8.6 MG/DL (8.5-10.1); CARBON DIOXIDE LEVEL 25 MEQ/L (21-32); CHLORIDE LEVEL 107 MEQ/L (98-107); CREATININE FOR GFR 0.62 MG/DL (0.70-1.30); GLOMERULAR FILTRATION RATE > 60.0 (>56); GLUCOSE, FASTING 86 MG/DL (70-100); POTASSIUM SERUM 3.7 MEQ/L (3.5-5.1); SODIUM LEVEL 140 MEQ/L (136-145); TOTAL PROTEIN 6.5 GM/DL (6.4-8.2)
[2021-08-13 06:41] LABS: LYMPHOCYTES 6 % (16-44); METAMYELOCYTES 5 % (0-0); MONOCYTES 10 % (0-5); MYELOCYTES 1 % (0-0); NEUTROPHILS 78 % (28-66); PLATELET ESTIMATE NORMAL (NORMAL)
[2021-08-13] MEDS: TIOTROPIUM INHALER/CAPSULE (SPIRIVA) INH SCH (07:36)
[2021-08-13] MEDS: ADVAIR HFA 230/21MCG INHALER INH SCH ×2 (07:36→19:26)
[2021-08-13] MEDS ORDERED: LIDO1CRE42 TOP (08:23)
[2021-08-13] MEDS: NICOTINE 14 MG/24 HR TRANSDERMAL TD SCH (08:46)
[2021-08-13] MEDS: LevoFLOXacin 750 MG TABLET PO SCH (08:46)
[2021-08-13] MEDS: ATORVASTATIN 20 MG TAB PO SCH (08:46)
[2021-08-13] MEDS: APIXABAN 5 MG TAB (ELIQUIS) PO SCH ×2 (08:47→20:24)
[2021-08-13] MEDS: DIGOXIN 0.125 MG TAB PO SCH (08:47)
[2021-08-13] MEDS: guaiFENesin ER 600 MG TAB PO SCH ×2 (08:47→20:24)
[2021-08-13] MEDS: LORATADINE 10 MG TAB PO SCH (08:47)
[2021-08-13] MEDS: NYSTATIN 500,000 U/5 ML SUSP UDC SS SCH ×4 (08:47→20:24)
[2021-08-13] MEDS: FOLIC ACID 1 MG TAB PO SCH (08:47)
[2021-08-13] MEDS: ASPIRIN 81MG ENTERIC TABLET PO SCH (08:47)
[2021-08-13] MEDS: OMEPRAZOLE 20MG CAP PO SCH (08:47)
[2021-08-13] MEDS: buPROPion **SR TABLET** (ZYBAN) 150MG PO SCH ×2 (08:47→20:24)
[2021-08-13] MEDS: EZETIMIBE 10MG TABLET (ZETIA) PO SCH (08:47)
[2021-08-13] MEDS: MOM 30ML SUSPENSION UDC PO SCH (08:48)
[2021-08-13] MEDS: OXAZEPAM 10 MG CAP PO SCH ×2 (13:21→21:43)
[2021-08-13 16:10] LABS: BODY FLUID CULTURE Not indicated. (.); LEGIONELLA ANTIGEN URINE Negative (Negative); ORGANISM ID Not indicated. (.); SPECIMEN SOURCE Urine (.); URINE STREP PNEUMONIAE ANTIGEN Negative (Negative)
[2021-08-13] MEDS ORDERED: chlordiazePOXIDE 25 MG CAP PO SCH (18:00)
[2021-08-14] VITALS (7 sets, daily range): BP systolic 104–132; BP diastolic 59–79
[2021-08-14] MEDS: LEVALBUTEROL 1.25 MG/0.5 ML CONCENTRATE NEB NEB SCH ×4 (02:35→19:41)
[2021-08-14 04:01] LABS: HEMATOCRIT 29.6 % (42.0-52.0); HEMOGLOBIN 9.8 g/dl (13.5-17.5); MEAN CORPUSCULAR HEMOGLOBIN 31.7 pg (27.0-33.0); MEAN CORPUSCULAR HGB CONC 33.1 g/dl (32.0-36.5); MEAN CORPUSCULAR VOLUME 95.8 fl (80.0-96.0); PLATELET COUNT, AUTOMATED 195 10^3/uL (150-450); RED BLOOD COUNT 3.09 10^6/uL (4.30-6.10)
[2021-08-14 04:28] LABS: ALBUMIN 1.7 GM/DL (3.2-5.2); ALT/SGPT 71 U/L (12-78); BILIRUBIN,TOTAL 0.5 MG/DL (0.2-1.0); BLOOD UREA NITROGEN 11 MG/DL (7-18); CALCIUM LEVEL 8.7 MG/DL (8.5-10.1); CARBON DIOXIDE LEVEL 29 MEQ/L (21-32); CHLORIDE LEVEL 105 MEQ/L (98-107); CREATININE FOR GFR 0.66 MG/DL (0.70-1.30); GLOMERULAR FILTRATION RATE > 60.0 (>56); GLUCOSE, FASTING 90 MG/DL (70-100); MAGNESIUM LEVEL 2.1 MG/DL (1.8-2.4); POTASSIUM SERUM 3.9 MEQ/L (3.5-5.1); SODIUM LEVEL 139 MEQ/L (136-145); TOTAL PROTEIN 6.7 GM/DL (6.4-8.2)
[2021-08-14 04:34] LABS: LYMPHOCYTES 9 % (16-44); METAMYELOCYTES 1 % (0-0); MONOCYTES 8 % (0-5); MYELOCYTES 1 % (0-0); NEUTROPHILS 79 % (28-66); PLATELET ESTIMATE NORMAL (NORMAL)
[2021-08-14 04:35] LABS: POLYCHROMASIA 1+
[2021-08-14] MEDS: METOPROLOL TART 25 MG TABLET PO SCH ×5 (05:40→23:58)
[2021-08-14] MEDS: OXAZEPAM 10 MG CAP PO SCH (05:58)
[2021-08-14] MEDS: LevoFLOXacin 750 MG TABLET PO SCH (05:58)
[2021-08-14] MEDS: ADVAIR HFA 230/21MCG INHALER INH SCH ×2 (07:37→19:39)
[2021-08-14] MEDS: TIOTROPIUM INHALER/CAPSULE (SPIRIVA) INH SCH (07:37)
[2021-08-14] MEDS: guaiFENesin ER 600 MG TAB PO SCH ×2 (08:18→20:23)
[2021-08-14] MEDS: ASPIRIN 81MG ENTERIC TABLET PO SCH (08:18)
[2021-08-14] MEDS: OMEPRAZOLE 20MG CAP PO SCH (08:18)
[2021-08-14] MEDS: FOLIC ACID 1 MG TAB PO SCH (08:18)
[2021-08-14] MEDS: buPROPion **SR TABLET** (ZYBAN) 150MG PO SCH ×2 (08:18→21:23)
[2021-08-14] MEDS: EZETIMIBE 10MG TABLET (ZETIA) PO SCH (08:18)
[2021-08-14] MEDS: APIXABAN 5 MG TAB (ELIQUIS) PO SCH ×2 (08:18→20:24)
[2021-08-14] MEDS: LORATADINE 10 MG TAB PO SCH (08:18)
[2021-08-14] MEDS: MOM 30ML SUSPENSION UDC PO SCH (08:19)
[2021-08-14] MEDS: ATORVASTATIN 20 MG TAB PO SCH (08:19)
[2021-08-14] MEDS: DIGOXIN 0.125 MG TAB PO SCH (08:19)
[2021-08-14] MEDS: NICOTINE 14 MG/24 HR TRANSDERMAL TD SCH (08:20)
[2021-08-14] MEDS: NYSTATIN 500,000 U/5 ML SUSP UDC SS SCH ×4 (08:25→20:24)
[2021-08-14] MEDS: THIAMINE 100 MG TAB PO SCH (10:07)
[2021-08-14] MEDS: MULTIVITAMINS/MINERALS THERAP 1 TAB PO SCH (10:07)
[2021-08-14] MEDS ORDERED: OXAZEPAM 15 MG CAP PO SCH (18:00)
[2021-08-14] MEDS ORDERED: OXAZEPAM 10 MG CAP PO SCH (18:00)
[2021-08-15] MEDS: LEVALBUTEROL 1.25 MG/0.5 ML CONCENTRATE NEB NEB SCH ×2 (01:32→07:33)
[2021-08-15 04:00] VITALS: BP 127/73
[2021-08-15] MEDS: METOPROLOL TART 25 MG TABLET PO SCH ×2 (05:35→13:16)
[2021-08-15] MEDS: LevoFLOXacin 750 MG TABLET PO SCH (05:45)
[2021-08-15 05:54] LABS: HEMATOCRIT 29.9 % (42.0-52.0); HEMOGLOBIN 9.8 g/dl (13.5-17.5); MEAN CORPUSCULAR HEMOGLOBIN 31.6 pg (27.0-33.0); MEAN CORPUSCULAR HGB CONC 32.8 g/dl (32.0-36.5); MEAN CORPUSCULAR VOLUME 96.5 fl (80.0-96.0); PLATELET COUNT, AUTOMATED 255 10^3/uL (150-450); WHITE BLOOD COUNT 9.2 10^3/uL (4.0-10.0)
[2021-08-15 06:18] LABS: ALBUMIN 1.9 GM/DL (3.2-5.2); ALT/SGPT 77 U/L (12-78); BILIRUBIN,TOTAL 0.5 MG/DL (0.2-1.0); BLOOD UREA NITROGEN 10 MG/DL (7-18); CALCIUM LEVEL 8.6 MG/DL (8.5-10.1); CARBON DIOXIDE LEVEL 28 MEQ/L (21-32); CHLORIDE LEVEL 103 MEQ/L (98-107); CREATININE FOR GFR 0.64 MG/DL (0.70-1.30); GLOMERULAR FILTRATION RATE > 60.0 (>56); GLUCOSE, FASTING 90 MG/DL (70-100); MAGNESIUM LEVEL 2.1 MG/DL (1.8-2.4); POTASSIUM SERUM 4.2 MEQ/L (3.5-5.1); SODIUM LEVEL 136 MEQ/L (136-145); TOTAL PROTEIN 6.1 GM/DL (6.4-8.2)
[2021-08-15 06:38] LABS: LYMPHOCYTES 9 % (16-44); METAMYELOCYTES 1 % (0-0); MONOCYTES 13 % (0-5); MYELOCYTES 2 % (0-0); NEUTROPHILS 73 % (28-66)
[2021-08-15 06:39] LABS: PLATELET ESTIMATE NORMAL (NORMAL)
[2021-08-15] MEDS: ADVAIR HFA 230/21MCG INHALER INH SCH (07:33)
[2021-08-15] MEDS: TIOTROPIUM INHALER/CAPSULE (SPIRIVA) INH SCH (07:33)
[2021-08-15] MEDS: MOM 30ML SUSPENSION UDC PO SCH ×2 (09:49→09:50)
[2021-08-15] MEDS: OMEPRAZOLE 20MG CAP PO SCH (09:49)
[2021-08-15] MEDS: ASPIRIN 81MG ENTERIC TABLET PO SCH (09:49)
[2021-08-15] MEDS: buPROPion **SR TABLET** (ZYBAN) 150MG PO SCH (09:49)
[2021-08-15] MEDS: NYSTATIN 500,000 U/5 ML SUSP UDC SS SCH ×4 (09:49→17:00)
[2021-08-15] MEDS: EZETIMIBE 10MG TABLET (ZETIA) PO SCH (09:49)
[2021-08-15] MEDS: ATORVASTATIN 20 MG TAB PO SCH (09:49)
[2021-08-15] MEDS: NICOTINE 14 MG/24 HR TRANSDERMAL TD SCH (09:49)
[2021-08-15] MEDS: FOLIC ACID 1 MG TAB PO SCH (09:50)
[2021-08-15] MEDS: MULTIVITAMINS/MINERALS THERAP 1 TAB PO SCH (09:50)
[2021-08-15] MEDS: APIXABAN 5 MG TAB (ELIQUIS) PO SCH (09:50)
[2021-08-15] MEDS: LORATADINE 10 MG TAB PO SCH (09:50)
[2021-08-15] MEDS: guaiFENesin ER 600 MG TAB PO SCH (09:50)
[2021-08-15] MEDS: DIGOXIN 0.125 MG TAB PO SCH (09:50)
[2021-08-15] MEDS: THIAMINE 100 MG TAB PO SCH (09:50)
[2021-08-15] MEDS ORDERED: LOPR1TAB6 PO (11:59)
[2021-08-15] MEDS ORDERED: DIGO0.123 PO (11:59)
[2021-08-15] MEDS ORDERED: LEVO750T13 PO (11:59)
[2021-08-15] MEDS ORDERED: THIA100TA PO (11:59)
[2021-08-15] MEDS ORDERED: ELIQ5TAB PO (11:59)
[2021-08-15 13:16] VITALS: BP 123/71
[2021-08-21] MEDS ORDERED: PEG6SYR SC (10:29)
[2021-09-01] MEDS ORDERED: DEXA4TA PO (16:15)
== END 2021-08-15 17:46 | disposition home health service (06) | DRG 720 ==
LOC: M ED 23:20 → M ED INP 08-07 03:10 → ENRESERV 08-07 12:17 → M PCU 08-07 13:32 → M MSPAV 08-14 16:12
PROVIDERS: ADMIT Family Medicine; ATTEND Internal Medicine
PROC: 0W9B3ZZ Drainage of Left Pleural Cavity, Percutaneous Approach (ICD-10-PCS; principal; 2021-08-07 14:39)
DX: A41.9 Sepsis, unspecified organism (principal); F10.231 Alcohol dependence with withdrawal delirium; J90 Pleural effusion, not elsewhere classified; D61.810 Antineoplastic chemotherapy induced pancytopenia; D70.9 Neutropenia, unspecified; J18.9 Pneumonia, unspecified organism; C79.89 Secondary malignant neoplasm of other specified sites; E87.1 Hypo-osmolality and hyponatremia; I48.91 Unspecified atrial fibrillation; I48.92 Unspecified atrial flutter; C34.90 Malignant neoplasm of unspecified part of unspecified bronchus or lung; F17.210 Nicotine dependence, cigarettes, uncomplicated; K21.9 Gastro-esophageal reflux disease without esophagitis; J44.9 Chronic obstructive pulmonary disease, unspecified; I73.9 Peripheral vascular disease, unspecified; Z92.21 Personal history of antineoplastic chemotherapy; Z79.899 Other long term (current) drug therapy; Z79.82 Long term (current) use of aspirin; Z88.8 Allergy status to other drugs, medicaments and biological substances; Z88.0 Allergy status to penicillin; Z91.040 Latex allergy status; E78.5 Hyperlipidemia, unspecified; F41.9 Anxiety disorder, unspecified; F32.9 Major depressive disorder, single episode, unspecified; D64.9 Anemia, unspecified; Z92.3 Personal history of irradiation; R19.7 Diarrhea, unspecified

== ENCOUNTER → 2021-09-10 | Outpatient (CLI) | payer BC ==
[~2021-09-10] MED LIST changes: +ACET-907 PO; +ALBU83IN INH; +DIGO0.123 PO; +DOCU100C16 PO; +ELIQ5TAB PO; +FLUT1BLS8 INH; +FOLI1TAB11 PO; +LEVO750T13 PO; +LOPR1TAB6 PO; +LORA-674 PO; +PEG6SYR SC; +THIA100TA PO
== END ==
LOC: M ONCR 11:20
PROVIDERS: ATTEND General Practice
DX: C34.12 Malignant neoplasm of upper lobe, left bronchus or lung (principal); F17.210 Nicotine dependence, cigarettes, uncomplicated; Z92.3 Personal history of irradiation; Z88.0 Allergy status to penicillin; Z88.1 Allergy status to other antibiotic agents; Z91.040 Latex allergy status; Z79.899 Other long term (current) drug therapy

== ENCOUNTER → 2021-10-10 | Outpatient (CLI) | payer BC ==
[~2021-10-10] MED LIST changes: +ISOVUE-370 76% 100ML VIAL As Ordered ONE
== END ==
LOC: M RAD 12:27
PROVIDERS: ATTEND Specialist
DX: C34.92 Malignant neoplasm of unspecified part of left bronchus or lung (principal)
CPT/HCPCS: 71260; Q9967

== ENCOUNTER → 2021-12-09 | Outpatient (CLI) | payer BC ==
[~2021-12-09] MED LIST changes: -ISOVUE-370 76% 100ML VIAL As Ordered ONE; +LEVO500T4 PO
== END ==
LOC: M ONCR 10:28
PROVIDERS: ATTEND General Practice
DX: C34.12 Malignant neoplasm of upper lobe, left bronchus or lung (principal); F17.210 Nicotine dependence, cigarettes, uncomplicated; Z88.0 Allergy status to penicillin; Z88.1 Allergy status to other antibiotic agents; Z88.8 Allergy status to other drugs, medicaments and biological substances; Z90.2 Acquired absence of lung [part of]; Z91.040 Latex allergy status; Z92.3 Personal history of irradiation

== ENCOUNTER → 2022-01-05 | Outpatient (CLI) | payer BC ==
[~2022-01-05] MED LIST changes: +ISOVUE-370 76% 100ML VIAL As Ordered ONE
== END ==
LOC: M RAD 14:00
PROVIDERS: ATTEND Internal Medicine Hematology & Oncology
DX: Z85.118 Personal history of other malignant neoplasm of bronchus and lung (principal)
CPT/HCPCS: 71260; Q9967

== ENCOUNTER → 2022-09-08 | Outpatient (CLI) | payer SELFPAY ==
[~2022-09-08] MED LIST changes: +ALBU2.5V10 INH; -ALBU83IN INH; -DOXY-350 PO; +DOXY-444 PO; +LEVO1TAB39 PO; +LEVO1TAB40 PO; -LEVO500T4 PO; -LEVO750T13 PO
== END ==
LOC: M RAD 09:39
PROVIDERS: ATTEND Specialist
DX: C34.90 Malignant neoplasm of unspecified part of unspecified bronchus or lung (principal)

== ENCOUNTER → 2022-10-27 | Outpatient (CLI) | payer MEDICAID ==
[~2022-10-27] MED LIST changes: -ISOVUE-370 76% 100ML VIAL As Ordered ONE
== END ==
LOC: M CLY 10:33
PROVIDERS: ATTEND Family Medicine
DX: M13.10 Monoarthritis, not elsewhere classified, unspecified site (principal)

== ENCOUNTER → 2022-10-29 | Outpatient (CLI) | payer MEDICAID | LOC: M CLY 18:24 | PROVIDERS: ATTEND Family Medicine | DX: Z53.9 Procedure and treatment not carried out, unspecified reason (principal) ==

== ENCOUNTER → 2022-11-11 | Outpatient (REF) | payer MEDICAID, OTHER ==
[2022-11-11 17:33] LABS: URIC ACID 7.3 MG/DL (3.7-9.2)
[2022-11-11 17:36] LABS: BLOOD UREA NITROGEN 11 MG/DL (9-23); CALCIUM LEVEL 8.9 MG/DL (8.5-10.1); CARBON DIOXIDE LEVEL 26 MMOL/L (20-31); CHLORIDE LEVEL 104 MMOL/L (98-107); CREATININE FOR GFR 0.75 MG/DL (0.70-1.30); GLOMERULAR FILTRATION RATE > 60.0 (>56); GLUCOSE, FASTING 106 MG/DL (60-100); SODIUM LEVEL 136 MMOL/L (136-145)
== END ==
LOC: M SFHCCLAY 11:59
PROVIDERS: ATTEND Family Medicine
DX: M13.10 Monoarthritis, not elsewhere classified, unspecified site (principal)

== ENCOUNTER → 2023-04-06 | Outpatient (CLI) | payer OTHER ==
[~2023-04-06] MED LIST changes: -LIDO1CRE42 TOP; +LIDO30CR18 TOP
== END ==
LOC: M PLARAD 12:40
PROVIDERS: ATTEND Specialist
DX: C34.12 Malignant neoplasm of upper lobe, left bronchus or lung (principal)
CPT/HCPCS: 78815; A9552

== ENCOUNTER → 2023-05-18 | Outpatient (CLI) | payer OTHER ==
[~2023-05-18] MED LIST changes: +ALLO100T; +COLC0.6T47; +ISOVUE-370 76% 100ML VIAL As Ordered ONE; +LORA-1041 PO; -LORA-674 PO
== END ==
LOC: M RAD 07:48
PROVIDERS: ATTEND Internal Medicine Hematology & Oncology
DX: C34.90 Malignant neoplasm of unspecified part of unspecified bronchus or lung (principal); N28.1 Cyst of kidney, acquired; K76.0 Fatty (change of) liver, not elsewhere classified
CPT/HCPCS: 71260; Q9967

== ENCOUNTER → 2023-09-10 | Outpatient (CLI) | payer MEDICARE, MEDICAID ==
[~2023-09-10] MED LIST changes: -ISOVUE-370 76% 100ML VIAL As Ordered ONE; +ISOVUE-370 76% 100ML VIAL ONE
== END ==
LOC: M PLAIMG 07:59
PROVIDERS: ATTEND Internal Medicine Hematology & Oncology
DX: C34.90 Malignant neoplasm of unspecified part of unspecified bronchus or lung (principal)
CPT/HCPCS: 71260; Q9967

== ENCOUNTER → 2024-02-09 | Outpatient (CLI) | payer MEDICARE ==
[~2024-02-09] MED LIST changes: +DOXY-440 PO; -DOXY-444 PO; -ISOVUE-370 76% 100ML VIAL ONE
== END ==
LOC: M CLY 14:42
PROVIDERS: ATTEND Physician Assistant
DX: M25.432 Effusion, left wrist (principal)

== ENCOUNTER → 2024-02-09 | Outpatient (REF) | payer MEDICARE ==
[2024-02-09 17:13] LABS: BASO # 0.1 10^3/uL (0.0-0.2); BASO % 0.6 % (0.0-1.0); EOS # 0.3 10^3/uL (0.0-0.5); EOS % 2.5 % (0.0-3.0); HEMATOCRIT 43.1 % (42.0-52.0); HEMOGLOBIN 14.6 g/dl (13.5-17.5); LYMPH # 1.2 10^3/uL (1.5-5.0); LYMPH % 10.9 % (24.0-44.0); MEAN CORPUSCULAR HEMOGLOBIN 33.5 pg (27.0-33.0); MEAN CORPUSCULAR HGB CONC 33.9 g/dl (32.0-36.5); MEAN CORPUSCULAR VOLUME 98.9 fl (80.0-96.0); MONO # 1.1 10^3/uL (0.0-0.8); MONO % 10.5 % (2.0-8.0); NEUTROPHILS # 8.1 10^3/uL (1.5-8.5); NEUTROPHILS % 75.1 % (36.0-66.0); PLATELET COUNT, AUTOMATED 277 10^3/uL (150-450); RED BLOOD COUNT 4.36 10^6/uL (4.30-6.10); WHITE BLOOD COUNT 10.8 10^3/uL (4.0-10.0)
[2024-02-09 17:34] LABS: URIC ACID 5.8 MG/DL (3.7-9.2)
[2024-02-09 17:37] LABS: ALBUMIN 3.2 G/DL (3.2-5.2); ALKALINE PHOSPHATASE 120 U/L (46-116); ALT/SGPT 13 U/L (7.0-40); AST/SGOT < 8 U/L (<34); BILIRUBIN,TOTAL 0.3 MG/DL (0.3-1.2); BLOOD UREA NITROGEN 12 MG/DL (9-23); CALCIUM LEVEL 9.2 MG/DL (8.3-10.6); CARBON DIOXIDE LEVEL 28 MMOL/L (20-31); CHLORIDE LEVEL 105 MMOL/L (98-107); CREATININE FOR GFR 1.01 MG/DL (0.70-1.30); GLOMERULAR FILTRATION RATE > 60.0 (>49); GLUCOSE, FASTING 93 MG/DL (74-106); POTASSIUM SERUM 4.5 MMOL/L (3.5-5.1); SODIUM LEVEL 139 MMOL/L (136-145); TOTAL PROTEIN 7.1 G/DL (5.7-8.2)
[2024-02-09 17:44] LABS: ERYTHROCYTE SEDIMENTATION RATE 68 mm/hr (0-20)
[2024-02-09 19:44] LABS: RHEUMATOID FACTOR QUANT 6.4 IU/ML (<14)
== END ==
LOC: M SFHCCLAY 14:29
PROVIDERS: ATTEND Physician Assistant
DX: M25.432 Effusion, left wrist (principal)

== ENCOUNTER → 2024-02-29 | Outpatient (CLI) | payer MEDICARE ==
[~2024-02-29] MED LIST changes: +ISOVUE-370 76% 100ML VIAL As Ordered ONE
== END ==
LOC: M RAD 10:43
PROVIDERS: ATTEND Specialist
DX: C34.90 Malignant neoplasm of unspecified part of unspecified bronchus or lung (principal)
CPT/HCPCS: 71260; Q9967

== ENCOUNTER → 2024-12-22 | Outpatient (REF) | payer MEDICARE ==
[~2024-12-22] MED LIST changes: -ISOVUE-370 76% 100ML VIAL As Ordered ONE
[2024-12-22 18:47] LABS: HEMOGLOBIN A1c 4.6 % (4.0-6.0)
[2024-12-22 18:50] LABS: PSA SCREENING 0.71 NG/ML (< 4.00)
[2024-12-22 18:52] LABS: DIGOXIN LEVEL < 0.1 NG/ML (0.8-2.0)
[2024-12-22 18:53] LABS: FREE T4 0.99 NG/DL (0.89-1.76)
[2024-12-22 18:54] LABS: ALBUMIN 3.9 G/DL (3.2-5.2); ALKALINE PHOSPHATASE 112 U/L (40-129); ALT/SGPT 17 U/L (7.0-40); AST/SGOT 14 U/L (<34); BILIRUBIN,TOTAL 0.8 MG/DL (0.3-1.2); BLOOD UREA NITROGEN 13 MG/DL (9-23); CALCIUM LEVEL 9.3 MG/DL (8.3-10.6); CARBON DIOXIDE LEVEL 24 MMOL/L (20-31); CHLORIDE LEVEL 105 MMOL/L (98-107); CHOLESTEROL LEVEL 318 MG/DL (<200); CHOLESTEROL RISK RATIO 6.41 (<5); CREATININE FOR GFR 0.73 MG/DL (0.70-1.30); GLOMERULAR FILTRATION RATE > 90.0 (>49); GLUCOSE, FASTING 98 MG/DL (74-106); HDL CHOLESTEROL 49.6 MG/DL (>40); NON-HDL-C 268.4 MG/DL; POTASSIUM SERUM 4.6 MMOL/L (3.5-5.1); SODIUM LEVEL 136 MMOL/L (136-145); THYROID STIMULATING HORMONE 1.678 uIU/ML (0.55-4.78); TOTAL PROTEIN 7.8 G/DL (5.7-8.2); TRIGLYCERIDES LEVEL 247 MG/DL (<150)
== END ==
LOC: M SFHCCLAY 09:10
PROVIDERS: ATTEND Physician Assistant
DX: Z00.00 Encounter for general adult medical examination without abnormal findings (principal); E78.2 Mixed hyperlipidemia; J44.9 Chronic obstructive pulmonary disease, unspecified; I48.0 Paroxysmal atrial fibrillation; Z85.118 Personal history of other malignant neoplasm of bronchus and lung; F32.A Depression, unspecified; Z87.39 Personal history of other diseases of the musculoskeletal system and connective tissue; Z86.39 Personal history of other endocrine, nutritional and metabolic disease; K76.0 Fatty (change of) liver, not elsewhere classified; N28.1 Cyst of kidney, acquired; Z12.11 Encounter for screening for malignant neoplasm of colon; Z12.5 Encounter for screening for malignant neoplasm of prostate
CPT/HCPCS: 80053; 80061; 80162; 83036; 83735; 84439; 84443; G0103

== ENCOUNTER → 2025-01-11 | Outpatient (CLI) | payer MEDICARE | LOC: M RAD 12:56 | PROVIDERS: ATTEND Physician Assistant | DX: Z86.39 Personal history of other endocrine, nutritional and metabolic disease (principal) ==

== ENCOUNTER → 2025-04-04 | Outpatient (CLI) | payer MEDICARE ==
[~2025-04-04] MED LIST changes: -ALLO100T; +ALLO100T PO; -AMIO200T49 PO; +AMIO200T54 PO; -COLC0.6T47; +COLC0.6T47 PO; +LANO125T4 PO; +VENTAER INH
== END ==
LOC: M PLAIMG 09:27
PROVIDERS: ATTEND Internal Medicine Pulmonary Disease
DX: J44.9 Chronic obstructive pulmonary disease, unspecified (principal); Z90.2 Acquired absence of lung [part of]

== ENCOUNTER → 2025-06-05 | Outpatient (CLI) | payer MEDICARE ==
[~2025-06-05] MED LIST changes: -COLC0.6T47 PO; +COLC0.6T53 PO; -EZET10TA21 PO; +EZET10TA57 PO; +ISOVUE-370 76% 100 ML VIAL As Ordered ONE
== END ==
LOC: M RAD 07:35
PROVIDERS: ATTEND Nurse Practitioner Family
DX: I77.1 Stricture of artery (principal); I70.0 Atherosclerosis of aorta; Z90.2 Acquired absence of lung [part of]; J43.9 Emphysema, unspecified; R91.8 Other nonspecific abnormal finding of lung field; I25.10 Atherosclerotic heart disease of native coronary artery without angina pectoris; N28.1 Cyst of kidney, acquired
CPT/HCPCS: 71275; 82565; Q9967

== ENCOUNTER → 2025-06-21 | Outpatient (REF) | payer MEDICARE ==
[~2025-06-21] MED LIST changes: -ISOVUE-370 76% 100 ML VIAL As Ordered ONE
[2025-06-21 14:14] LABS: ALT/SGPT 23.0 U/L (7.0-40); AST/SGOT 19.0 U/L (<34); CALCIUM LEVEL 9.3 MG/DL (8.3-10.6); CARBON DIOXIDE LEVEL 27.0 MMOL/L (20-31); CHLORIDE LEVEL 106.0 MMOL/L (98-107); CHOLESTEROL LEVEL 151.0 MG/DL (<200); CHOLESTEROL RISK RATIO 3.06 (<5); CREATININE FOR GFR 1.1 MG/DL (0.70-1.30); GLOMERULAR FILTRATION RATE 75.9 (>49); LDL CHOLESTEROL 85.4 MG/DL (<100); NON-HDL-C 101.8 MG/DL; POTASSIUM SERUM 4.9 MMOL/L (3.5-5.1); SODIUM LEVEL 141.0 MMOL/L (136-145); TRIGLYCERIDES LEVEL 82.0 MG/DL (<150)
[2025-06-21 14:56] LABS: ESTIMATED AVERAGE GLUCOSE 91.0 MG/DL (60-110)
== END ==
LOC: M SFHCCLAY 08:27
PROVIDERS: ATTEND Physician Assistant
DX: I48.0 Paroxysmal atrial fibrillation (principal); E78.2 Mixed hyperlipidemia; J44.9 Chronic obstructive pulmonary disease, unspecified; Z85.118 Personal history of other malignant neoplasm of bronchus and lung; M25.432 Effusion, left wrist; E04.1 Nontoxic single thyroid nodule; K76.0 Fatty (change of) liver, not elsewhere classified; N28.1 Cyst of kidney, acquired; Z12.11 Encounter for screening for malignant neoplasm of colon; Z12.5 Encounter for screening for malignant neoplasm of prostate; Z87.39 Personal history of other diseases of the musculoskeletal system and connective tissue; Z79.899 Other long term (current) drug therapy